=== PATIENT | female | born 1940 | race Caucasian/White ===

== ENCOUNTER → 2017-09-19 | Day surgery (SDC) | payer OTHER | END | disposition home or self-care (01) | LOC: JRADUS-SUR 10:19 | PROVIDERS: ATTEND Family Medicine | PROC: 0HBT3ZX Excision of Right Breast, Percutaneous Approach, Diagnostic (ICD-10-PCS; principal; 2017-09-19) | DX: N63.0 Unspecified lump in unspecified breast (principal); Z53.8 Procedure and treatment not carried out for other reasons | CPT/HCPCS: 76641-TC-LT; 77066-TC ==

== ENCOUNTER 2022-08-25 09:15 | Inpatient (IN) | payer OTHER ==
[2022-08-25] MEDS ORDERED: MIDAZOLAM 100 MG in SODIUM CHLORIDE 100 ML IVPB SCH (09:30)
[2022-08-25] MEDS ORDERED: NOREPINEPHRINE BITARTRATE 16,000 MCG in SODIUM CHLORIDE 484 ML IV SCH (09:30)
[2022-08-25] MEDS ORDERED: LACTATED RINGERS SOLUTION 1000 ML INFUS.BAG IV ONE (09:30)
[2022-08-25] MEDS ORDERED: NOREPINEPHRINE BITARTRATE/D5W 8 MG/250 ML BAG IVPB ONE (09:35)
[2022-08-25] MEDS ORDERED: CEFEPIME 1 GM in DEXTROSE 5%-WATER - 50 ML IVPB ONE (09:46)
[2022-08-25] MEDS ORDERED: VANCOMYCIN 1,000 MG in DEXTROSE 5%-WATER - 250 ML IVPB ONE (09:47)
[2022-08-25] MEDS ORDERED: MIDAZOLAM IN 0.9 % SOD.CHLORID 1 MG/1 ML PLAST..BAG ONE (09:48)
[2022-08-25 09:54] LABS: BASO % 0.3 % (0-2.0); EOS % 0.7 % (0-4.5); HEMOGLOBIN 8.9 GM/dL (10.7-15.3); LYMPH % 29.2 % (8-40); MCHC 28.7 g/dl (32.0-36.0); MEAN CELL VOLUME 90.4 fl (80-96); MEAN PLT VOLUME 10.1 fl (7.5-11.1); NEUT % 63.8 % (42.8-82.8); PLATELET COUNT 409 10^3/uL (134-434); RBC 3.43 M/mm3 (3.60-5.2); RDW 23.5 % (11.6-15.6); WHITE BLOOD COUNT 12.1 K/mm3 (4.0-10.0)
[2022-08-25 10:02] LABS: INR 1.45 (0.83-1.09); PROTHROMBIN TIME (PATIENT) 16.7 SEC (9.7-13.0)
[2022-08-25 10:05] LABS: VENOUS BASE EXCESS -8.6 mmol/L (-2-2); VENOUS O2 SATURATION 83.5 % (70-80); VENOUS PCO2 42.4 mmHg (38-52); VENOUS PH 7.248 (7.310-7.410)
[2022-08-25 10:05] LABS: ACTIVATED PTT 24.9 SECONDS (25.2-36.5)
[2022-08-25 10:13] LABS: CHLORIDE 125 mmol/L (98-107); SODIUM 157 mmol/L (136-145)
[2022-08-25 10:14] LABS: CALCIUM 8.4 mg/dL (8.5-10.1)
[2022-08-25 10:15] LABS: ALBUMIN 1.8 g/dl (3.4-5.0); ANION GAP 14 MMOL/L (8-16); BLOOD UREA NITROGEN 33.3 mg/dL (7-18); CO2 19 mmol/L (21-32); GLUCOSE,RANDOM 127 mg/dL (74-106)
[2022-08-25 10:17] LABS: CREATININE 1.9 mg/dL (0.55-1.3); SGOT/AST 23 U/L (15-37); SGPT/ALT 6 U/L (13-61)
[2022-08-25 10:19] LABS: TOT PROT 7.7 g/dl (6.4-8.2)
[2022-08-25 10:21] LABS: ALK PHOS 89 U/L (45-117)
[2022-08-25 10:43] LABS: LACTIC ACID 8.8 mmol/L (0.4-2.0)
[2022-08-25 10:56] LABS: EPI CELLS 5 /uL (0-25.1); HYALINE CASTS 1 /uL (0-3.1); PH,URINE 6.5 (5.0-8.0); URINE APPEARANCE TURBID; URINE BACTERIA >9,000 /uL (0-1359); URINE BILIRUBIN NEGATIVE (NEGATIVE); URINE COLOR YELLOW; URINE GLUCOSE (UA) NEGATIVE (NEGATIVE); URINE KETONE NEGATIVE (NEGATIVE); URINE LEUK ESTERASE 3+ (NEGATIVE); URINE NITRITE POSITIVE (NEGATIVE); URINE PROTEIN 1+ (NEGATIVE); URINE UROBILINOGEN 0.2 mg/dL (0.2-1.0); URINE WBC 6015 /uL (0-25.8)
[2022-08-25 11:01] LABS: ANISOCYTOSIS 0; MACROCYTOSIS 0; TARGET CELLS 1+
[2022-08-25 11:07] LABS: URINE RBC 147.8 /uL (0-23.9); YEAST NEGATIVE (NEGATIVE)
[2022-08-25] MEDS ORDERED: VANCOMYCIN/WATER FOR INJ (PEG) 1,000 MG/200 ML BAG IVPB ONE ×2 (11:11→11:15)
[2022-08-25] MEDS ORDERED: CEFEPIME 1 GM/100 ML BAG IVPB ONE (11:11)
[2022-08-25 11:13] LABS: ARTERIAL BLD GAS O2 SATURATION 99.7 % (95-98); ARTERIAL BLOOD GAS BASE EXCESS -2.3 mmol/L (-2-2); ARTERIAL BLOOD GAS PO2 292.8 mmHg (80-100); ARTERIAL BLOOD GAS pH 7.428 (7.350-7.450)
[2022-08-25 11:15] LABS: ALLENS TEST POSITIVE; PT'S TEMP 100.2; VENT MODE A/C; VENT RATE 12
[2022-08-25 11:22] LABS: CHLORIDE 124 mmol/L (98-107); SODIUM 158 mmol/L (136-145)
[2022-08-25 11:24] LABS: CALCIUM 8.9 mg/dL (8.5-10.1)
[2022-08-25 11:26] LABS: ANION GAP 14 MMOL/L (8-16); BLOOD UREA NITROGEN 32.3 mg/dL (7-18); CO2 20 mmol/L (21-32); GLUCOSE,RANDOM 95 mg/dL (74-106)
[2022-08-25 11:28] LABS: CREATININE 1.6 mg/dL (0.55-1.3); SGOT/AST 17 U/L (15-37); SGPT/ALT < 6 U/L (13-61)
[2022-08-25 11:29] LABS: BILIRUBIN,TOTAL 0.5 mg/dL (0.2-1)
[2022-08-25 11:32] LABS: ALK PHOS 96 U/L (45-117)
[2022-08-25] MEDS ORDERED: SODIUM CHLORIDE 0.9% 500 ML INFUS.BAG IV ONE (12:25)
[2022-08-25 12:45] LABS: LACTIC ACID 2.4 mmol/L (0.4-2.0)
[2022-08-25] MEDS: NOREPINEPHRINE 0.9 % NACL 8 MG/250 ML BAG IVPB SCH (12:47)
[2022-08-25] MEDS: MIDAZOLAM IN 0.9 % SOD.CHLORID 100 MG/100 ML PLAST..BAG IVPB SCH (12:49)
[2022-08-25] MEDS: SODIUM CHLORIDE 1,000 ML IV SCH (14:00)
[2022-08-25] MEDS: HEPARIN NA (PORCINE) 5,000 UNITS/ML 1ML VIAL SQ SCH ×2 (14:24→21:41)
[2022-08-25] MEDS ORDERED: CEFEPIME 2 GM in DEXTROSE 5%-WATER 100 ML IVPB ONE (15:30)
[2022-08-25] MEDS ORDERED: ACETAMINOPHEN 325 MG TABLET (FP) PO PRN ×2 (21:27→21:29)
[2022-08-25] MEDS: MUPIROCIN 2% TOPICAL OINTMENT FOR DECOLONIZATION NS SCH (21:41)
[2022-08-25] MEDS: PANTOPRAZOLE SODIUM 40 MG VIAL IVPUSH SCH (21:41)
[2022-08-25] MEDS: CHLORHEXIDINE GLUCONATE 4% CLEANSER FOR DECOLONIZATION TP SCH (21:41)
[2022-08-25] MEDS ORDERED: CEFEPIME 1 GM in DEXTROSE 5%-WATER - 100 ML IVPB SCH (22:00)
[2022-08-25] MEDS ORDERED: ACETAMINOPHEN 1000 MG/100 ML BAG IVPB PRN (22:07)
[2022-08-25] MEDS: FENTANYL NS IVPB 500 MCG/100 ML BAG IVPB SCH (22:23)
[2022-08-25] MEDS: VASOPRESSIN 40 UNITS/100 ML BAG IV SCH (22:24)
[2022-08-26] MEDS ORDERED: LACTATED RINGERS SOLUTION 1,000 ML/1,000 ML INFUS.BAG IV STA (00:26)
[2022-08-26] MEDS: SODIUM CHLORIDE 1,000 ML IV SCH (01:00)
[2022-08-26] MEDS: MIDAZOLAM IN 0.9 % SOD.CHLORID 100 MG/100 ML PLAST..BAG IVPB SCH ×3 (04:16→20:37)
[2022-08-26] MEDS: NOREPINEPHRINE 0.9 % NACL 8 MG/250 ML BAG IVPB SCH ×3 (04:16→22:54)
[2022-08-26] MEDS: CEFEPIME 1 GM in DEXTROSE 5%-WATER 100 ML IVPB SCH ×2 (04:41→16:00)
[2022-08-26] MEDS: HEPARIN NA (PORCINE) 5,000 UNITS/ML 1ML VIAL SQ SCH (06:46)
[2022-08-26] MEDS: HYDROCORTISONE SOD SUCCINATE 100 MG/2 ML VIAL IVPB SCH ×4 (06:46→20:37)
[2022-08-26 08:42] LABS: BASO % 0.2 % (0-2.0); EOS % 0.9 % (0-4.5); HEMATOCRIT 24.6 % (32.4-45.2); HEMOGLOBIN 7.2 GM/dL (10.7-15.3); LYMPH % 25.2 % (8-40); MCH 26.7 pg (25.7-33.7); MCHC 29.2 g/dl (32.0-36.0); MEAN CELL VOLUME 91.6 fl (80-96); MONO % 6.2 % (3.8-10.2); NEUT % 67.5 % (42.8-82.8); PLATELET COUNT 304 10^3/uL (134-434); RBC 2.68 M/mm3 (3.60-5.2); RDW 23.2 % (11.6-15.6); WHITE BLOOD COUNT 10.7 K/mm3 (4.0-10.0)
[2022-08-26 08:59] LABS: CHLORIDE 124 mmol/L (98-107); SODIUM 154 mmol/L (136-145)
[2022-08-26 09:04] LABS: ANION GAP 11 MMOL/L (8-16); BLOOD UREA NITROGEN 28.1 mg/dL (7-18); CALCIUM 7.6 mg/dL (8.5-10.1); CO2 19 mmol/L (21-32)
[2022-08-26 09:06] LABS: GLUCOSE,RANDOM 148 mg/dL (74-106); MAGNESIUM 1.7 mg/dL (1.8-2.4)
[2022-08-26 09:07] LABS: CREATININE 1.5 mg/dL (0.55-1.3); PHOSPHOROUS 3.1 mg/dL (2.5-4.9); SGPT/ALT < 6 U/L (13-61)
[2022-08-26 09:09] LABS: BILIRUBIN,TOTAL 0.5 mg/dL (0.2-1); SGOT/AST 19 U/L (15-37); TOT PROT 6.1 g/dl (6.4-8.2)
[2022-08-26 09:10] LABS: ALK PHOS 78 U/L (45-117)
[2022-08-26] MEDS ORDERED: HEPARIN NA (PORCINE) 5,000 UNITS/ML 1ML VIAL IVPUSH PRN ×2 (09:11)
[2022-08-26 09:12] LABS: ALBUMIN 1.5 g/dl (3.4-5.0)
[2022-08-26] MEDS ORDERED: HEPARIN INFUSION - 25,000 UNIT/500 ML INFUS.BAG IVPB SCH (09:30)
[2022-08-26] MEDS: VANCOMYCIN/WATER FOR INJ (PEG) 1,000 MG/200 ML BAG IVPB SCH (09:32)
[2022-08-26] MEDS: MUPIROCIN 2% TOPICAL OINTMENT FOR DECOLONIZATION NS SCH ×2 (09:32→21:44)
[2022-08-26] MEDS: PANTOPRAZOLE SODIUM 40 MG VIAL IVPUSH SCH ×2 (09:32→21:46)
[2022-08-26] MEDS: FENTANYL NS IVPB 500 MCG/100 ML BAG IVPB SCH (09:44)
[2022-08-26] MEDS: LACTATED RINGERS SOLUTION 1,000 ML/1,000 ML INFUS.BAG IV SCH (11:09)
[2022-08-26] MEDS ORDERED: MAGNESIUM SULF 50% (8.12 MEQ/2 ML-1 GM VIAL) IVPB ONE ×2 (13:32→20:04)
[2022-08-26] MEDS: KCL 10 MEQ IVPB 10 MEQ/100 ML INFUS.BAG IVPB SCH ×2 (14:20→16:00)
[2022-08-26 17:32] LABS: BASO % 0.2 % (0-2.0); EOS % 0.1 % (0-4.5); HEMATOCRIT 26.4 % (32.4-45.2); HEMOGLOBIN 7.6 GM/dL (10.7-15.3); LYMPH % 8.9 % (8-40); MCH 26.4 pg (25.7-33.7); MCHC 28.7 g/dl (32.0-36.0); MEAN CELL VOLUME 92.1 fl (80-96); MEAN PLT VOLUME 9.7 fl (7.5-11.1); NEUT % 89.8 % (42.8-82.8); PLATELET COUNT 319 10^3/uL (134-434); RBC 2.86 M/mm3 (3.60-5.2); RDW 23.5 % (11.6-15.6); WHITE BLOOD COUNT 10.5 K/mm3 (4.0-10.0)
[2022-08-26] MEDS: MELATONIN 5 MG TABLETS PO SCH (21:45)
[2022-08-26] MEDS: CHLORHEXIDINE GLUCONATE 4% CLEANSER FOR DECOLONIZATION TP SCH (21:45)
[2022-08-26] MEDS: VASOPRESSIN 40 UNITS/100 ML BAG IV SCH (21:46)
[2022-08-26] MEDS ORDERED: DIVALPROEX SODIUM 250 MG TABLET E.C. PO SCH (22:00)
[2022-08-27] MEDS ORDERED: FENTANYL CITRATE/PF 50 MCG/ML VIAL IVPUSH ONE (01:06)
[2022-08-27 01:14] LABS: BLOOD UREA NITROGEN 24.9 mg/dL (7-18); CALCIUM 7.9 mg/dL (8.5-10.1); CREATININE 1.4 mg/dL (0.55-1.3); MAGNESIUM 3.2 mg/dL (1.8-2.4); PHOSPHOROUS 3.2 mg/dL (2.5-4.9)
[2022-08-27] MEDS: FENTANYL NS IVPB 500 MCG/100 ML BAG IVPB SCH ×3 (01:15→22:14)
[2022-08-27] MEDS: LACTATED RINGERS SOLUTION 1,000 ML/1,000 ML INFUS.BAG IV SCH ×2 (03:00→11:50)
[2022-08-27] MEDS: HYDROCORTISONE SOD SUCCINATE 100 MG/2 ML VIAL IVPB SCH ×4 (04:15→21:40)
[2022-08-27] MEDS: CEFEPIME 1 GM in DEXTROSE 5%-WATER 100 ML IVPB SCH ×2 (04:15→17:09)
[2022-08-27 07:25] LABS: BASO % 0.1 % (0-2.0); HEMATOCRIT 24.2 % (32.4-45.2); HEMOGLOBIN 7.2 GM/dL (10.7-15.3); LYMPH % 8.5 % (8-40); MCH 26.8 pg (25.7-33.7); MEAN CELL VOLUME 89.5 fl (80-96); MEAN PLT VOLUME 9.5 fl (7.5-11.1); MONO % 1.8 % (3.8-10.2); NEUT % 89.6 % (42.8-82.8); PLATELET COUNT 328 10^3/uL (134-434); RDW 23.6 % (11.6-15.6); WHITE BLOOD COUNT 9.9 K/mm3 (4.0-10.0)
[2022-08-27 07:52] LABS: CHLORIDE 128 mmol/L (98-107); SODIUM 157 mmol/L (136-145)
[2022-08-27 08:03] LABS: ALBUMIN 1.4 g/dl (3.4-5.0); BLOOD UREA NITROGEN 23.2 mg/dL (7-18); CALCIUM 8.2 mg/dL (8.5-10.1); GLUCOSE,RANDOM 168 mg/dL (74-106)
[2022-08-27 08:05] LABS: ANION GAP 8 MMOL/L (8-16); CO2 20 mmol/L (21-32); MAGNESIUM 2.9 mg/dL (1.8-2.4)
[2022-08-27 08:07] LABS: PHOSPHOROUS 2.6 mg/dL (2.5-4.9); SGOT/AST 17 U/L (15-37); SGPT/ALT < 6 U/L (13-61)
[2022-08-27 08:09] LABS: ALK PHOS 89 U/L (45-117); BILIRUBIN,TOTAL 0.3 mg/dL (0.2-1); CREATININE 1.4 mg/dL (0.55-1.3); TOT PROT 6.1 g/dl (6.4-8.2)
[2022-08-27] MEDS: PANTOPRAZOLE SODIUM 40 MG VIAL IVPUSH SCH ×2 (09:35→21:43)
[2022-08-27] MEDS: MUPIROCIN 2% TOPICAL OINTMENT FOR DECOLONIZATION NS SCH ×2 (09:36→21:42)
[2022-08-27] MEDS: VANCOMYCIN/WATER FOR INJ (PEG) 1,000 MG/200 ML BAG IVPB SCH (09:37)
[2022-08-27] MEDS ORDERED: DIVALPROEX SODIUM 250 MG TABLET E.C. PO SCH (10:00)
[2022-08-27] MEDS ORDERED: MULTIVITAMINS (DAILY MVI) TABLET (FP) PO SCH (10:00)
[2022-08-27] MEDS ORDERED: KCL 10 MEQ IVPB 10 MEQ/100 ML INFUS.BAG IVPB SCH (10:45)
[2022-08-27] MEDS ORDERED: HEPARIN NA (PORCINE) 5,000 UNITS/ML 1ML VIAL IVPUSH PRN ×2 (11:46)
[2022-08-27] MEDS: MULTIVIT-MINERALS ORAL LIQUID PO SCH (11:49)
[2022-08-27] MEDS: ASPIRIN 81 MG CHEWABLE TABLETS NGT SCH (13:06)
[2022-08-27] MEDS: HEPARIN INFUSION - 25,000 UNITS/500 ML INFUS.BAG IVPB SCH ×2 (13:06→22:14)
[2022-08-27] MEDS: NOREPINEPHRINE 0.9 % NACL 8 MG/250 ML BAG IVPB SCH (13:08)
[2022-08-27] MEDS: MIDAZOLAM IN 0.9 % SOD.CHLORID 100 MG/100 ML PLAST..BAG IVPB SCH (13:09)
[2022-08-27] MEDS: POTASSIUM CHLORIDE 20 MEQ PREMIX IVPB 100 ML IVPB SCH ×3 (13:22→16:10)
[2022-08-27] MEDS ORDERED: VALPROATE SODIUM 250 MG/5 ML UNIT DOSE CUP PO SCH (14:00)
[2022-08-27] MEDS: VALPROATE SODIUM 250 MG/5 ML UNIT DOSE CUP GT SCH ×2 (14:35→21:42)
[2022-08-27] MEDS: POTASSIUM CHLORIDE 20 MEQ in DEXTROSE 5%-WATER - 1,000 ML IV SCH (17:09)
[2022-08-27] MEDS ORDERED: HEPARIN NA (PORCINE) 5,000 UNITS/ML 1ML VIAL SQ SCH (20:00)
[2022-08-27] MEDS: MELATONIN 5 MG TABLETS PO SCH (21:42)
[2022-08-27] MEDS: CHLORHEXIDINE GLUCONATE 4% CLEANSER FOR DECOLONIZATION TP SCH (21:42)
[2022-08-27] MEDS: VASOPRESSIN 40 UNITS/100 ML BAG IV SCH (21:43)
[2022-08-28] MEDS: NOREPINEPHRINE 0.9 % NACL 8 MG/250 ML BAG IVPB SCH ×2 (01:09→17:05)
[2022-08-28] MEDS: MIDAZOLAM IN 0.9 % SOD.CHLORID 100 MG/100 ML PLAST..BAG IVPB SCH ×2 (01:09→17:04)
[2022-08-28] MEDS: FENTANYL NS IVPB 500 MCG/100 ML BAG IVPB SCH ×2 (03:00→05:35)
[2022-08-28] MEDS: CEFEPIME 1 GM in DEXTROSE 5%-WATER 100 ML IVPB SCH ×2 (03:04→15:16)
[2022-08-28] MEDS: HYDROCORTISONE SOD SUCCINATE 100 MG/2 ML VIAL IVPB SCH ×4 (03:04→20:00)
[2022-08-28] MEDS: VALPROATE SODIUM 250 MG/5 ML UNIT DOSE CUP GT SCH ×3 (05:35→21:08)
[2022-08-28] MEDS: POTASSIUM CHLORIDE 20 MEQ in DEXTROSE 5%-WATER - 1,000 ML IV SCH (05:35)
[2022-08-28 06:21] LABS: ALLENS TEST POSITIVE; ARTERIAL BLD GAS O2 SATURATION 98.9 % (95-98); ARTERIAL BLOOD GAS BASE EXCESS -10.2 mmol/L (-2-2); ARTERIAL BLOOD GAS PO2 157.7 mmHg (80-100); ARTERIAL BLOOD GAS pH 7.297 (7.350-7.450)
[2022-08-28 06:22] LABS: VENT MODE A/C; VENT RATE 12
[2022-08-28 08:32] LABS: BASO % 0.1 % (0-2.0); HEMATOCRIT 24.3 % (32.4-45.2); LYMPH % 7.6 % (8-40); MCH 26.2 pg (25.7-33.7); MCHC 28.8 g/dl (32.0-36.0); MEAN PLT VOLUME 9.4 fl (7.5-11.1); MONO % 3.7 % (3.8-10.2); NEUT % 88.6 % (42.8-82.8); PLATELET COUNT 308 10^3/uL (134-434); RBC 2.67 M/mm3 (3.60-5.2); RDW 23.9 % (11.6-15.6); WHITE BLOOD COUNT 12.8 K/mm3 (4.0-10.0)
[2022-08-28 08:53] LABS: CHLORIDE 122 mmol/L (98-107); SODIUM 152 mmol/L (136-145)
[2022-08-28 09:06] LABS: ALBUMIN 1.4 g/dl (3.4-5.0); ANION GAP 12 MMOL/L (8-16); BLOOD UREA NITROGEN 24.9 mg/dL (7-18); CALCIUM 8.1 mg/dL (8.5-10.1); CO2 17 mmol/L (21-32); GLUCOSE,RANDOM 211 mg/dL (74-106); MAGNESIUM 2.5 mg/dL (1.8-2.4)
[2022-08-28 09:09] LABS: CREATININE 1.4 mg/dL (0.55-1.3); SGOT/AST 14 U/L (15-37)
[2022-08-28 09:10] LABS: PHOSPHOROUS 2.5 mg/dL (2.5-4.9)
[2022-08-28 09:11] LABS: BILIRUBIN,TOTAL 0.2 mg/dL (0.2-1)
[2022-08-28 09:12] LABS: ALK PHOS 81 U/L (45-117); SGPT/ALT < 6 U/L (13-61)
[2022-08-28] MEDS: MULTIVIT-MINERALS ORAL LIQUID PO SCH (09:36)
[2022-08-28] MEDS: PANTOPRAZOLE SODIUM 40 MG VIAL IVPUSH SCH ×2 (09:37→21:08)
[2022-08-28] MEDS: ASPIRIN 81 MG CHEWABLE TABLETS NGT SCH (09:37)
[2022-08-28] MEDS: MUPIROCIN 2% TOPICAL OINTMENT FOR DECOLONIZATION NS SCH ×2 (09:38→21:08)
[2022-08-28] MEDS: WATER IV SCH ×2 (13:51→23:59)
[2022-08-28] MEDS: DEXTROSE 5% IV SCH ×2 (13:51→23:59)
[2022-08-28] MEDS: POTASSIUM ACETATE IV SCH ×2 (13:51→23:59)
[2022-08-28] MEDS: HEPARIN INFUSION - 25,000 UNITS/500 ML INFUS.BAG IVPB SCH (17:02)
[2022-08-28] MEDS: CHLORHEXIDINE GLUCONATE 4% CLEANSER FOR DECOLONIZATION TP SCH (21:08)
[2022-08-29] MEDS: HYDROCORTISONE SOD SUCCINATE 100 MG/2 ML VIAL IVPB SCH ×3 (03:02→16:46)
[2022-08-29] MEDS: CEFEPIME 1 GM in DEXTROSE 5%-WATER 100 ML IVPB SCH ×2 (03:02→16:46)
[2022-08-29] MEDS: FENTANYL NS IVPB 500 MCG/100 ML BAG IVPB SCH ×3 (03:03→10:10)
[2022-08-29] MEDS: WATER IV SCH ×3 (04:08→21:13)
[2022-08-29] MEDS: POTASSIUM ACETATE IV SCH ×3 (04:08→21:13)
[2022-08-29] MEDS: DEXTROSE 5% IV SCH ×3 (04:08→21:13)
[2022-08-29] MEDS: VALPROATE SODIUM 250 MG/5 ML UNIT DOSE CUP GT SCH ×3 (05:25→21:10)
[2022-08-29 07:52] LABS: BASO % 0.2 % (0-2.0); HEMATOCRIT 24.2 % (32.4-45.2); LYMPH % 5.6 % (8-40); MCH 26.1 pg (25.7-33.7); MCHC 28.8 g/dl (32.0-36.0); MEAN CELL VOLUME 90.7 fl (80-96); MEAN PLT VOLUME 9.1 fl (7.5-11.1); MONO % 3.4 % (3.8-10.2); NEUT % 90.8 % (42.8-82.8); PLATELET COUNT 256 10^3/uL (134-434); RBC 2.66 M/mm3 (3.60-5.2); WHITE BLOOD COUNT 13.1 K/mm3 (4.0-10.0)
[2022-08-29 07:53] LABS: CHLORIDE 120 mmol/L (98-107); SODIUM 148 mmol/L (136-145)
[2022-08-29 08:05] LABS: ALBUMIN 1.3 g/dl (3.4-5.0); ANION GAP 10 MMOL/L (8-16); BLOOD UREA NITROGEN 23.4 mg/dL (7-18); CO2 18 mmol/L (21-32); GLUCOSE,RANDOM 158 mg/dL (74-106)
[2022-08-29 08:08] LABS: CREATININE 1.3 mg/dL (0.55-1.3); SGOT/AST 13 U/L (15-37)
[2022-08-29 08:10] LABS: BILIRUBIN,TOTAL 0.3 mg/dL (0.2-1); TOT PROT 5.7 g/dl (6.4-8.2)
[2022-08-29 08:11] LABS: ALK PHOS 83 U/L (45-117)
[2022-08-29 08:21] LABS: SGPT/ALT < 6 U/L (13-61)
[2022-08-29] MEDS: PANTOPRAZOLE SODIUM 40 MG VIAL IVPUSH SCH ×2 (10:09→21:10)
[2022-08-29] MEDS: MULTIVIT-MINERALS ORAL LIQUID PO SCH (10:09)
[2022-08-29] MEDS: ASPIRIN 81 MG CHEWABLE TABLETS NGT SCH (10:09)
[2022-08-29] MEDS: NOREPINEPHRINE 0.9 % NACL 8 MG/250 ML BAG IVPB SCH ×3 (10:10→20:00)
[2022-08-29] MEDS: MIDAZOLAM IN 0.9 % SOD.CHLORID 100 MG/100 ML PLAST..BAG IVPB SCH ×2 (10:10→13:05)
[2022-08-29] MEDS: MUPIROCIN 2% TOPICAL OINTMENT FOR DECOLONIZATION NS SCH ×2 (10:10→21:10)
[2022-08-29 10:12] LABS: ANISOCYTOSIS 1+; MACROCYTOSIS 0; TARGET CELLS 1+
[2022-08-29] MEDS: CHLORHEXIDINE GLUCONATE 4% CLEANSER FOR DECOLONIZATION TP SCH (21:10)
[2022-08-30] MEDS: POTASSIUM ACETATE IV SCH ×3 (00:52→23:50)
[2022-08-30] MEDS: WATER IV SCH ×3 (00:52→23:50)
[2022-08-30] MEDS: DEXTROSE 5% IV SCH ×3 (00:52→23:50)
[2022-08-30] MEDS: FENTANYL NS IVPB 500 MCG/100 ML BAG IVPB SCH ×2 (02:12→15:56)
[2022-08-30] MEDS: VALPROATE SODIUM 250 MG/5 ML UNIT DOSE CUP GT SCH ×3 (05:10→21:55)
[2022-08-30] MEDS: HYDROCORTISONE SOD SUCCINATE 100 MG/2 ML VIAL IVPB SCH ×2 (05:10→17:20)
[2022-08-30] MEDS: MIDAZOLAM IN 0.9 % SOD.CHLORID 100 MG/100 ML PLAST..BAG IVPB SCH ×2 (05:11→14:58)
[2022-08-30 08:03] LABS: HEMOGLOBIN 7.4 GM/dL (10.7-15.3); MCH 26.6 pg (25.7-33.7); MCHC 29.8 g/dl (32.0-36.0); MEAN CELL VOLUME 89.5 fl (80-96); MEAN PLT VOLUME 9.4 fl (7.5-11.1); PLATELET COUNT 243 10^3/uL (134-434); RBC 2.79 M/mm3 (3.60-5.2); RDW 24.1 % (11.6-15.6); WHITE BLOOD COUNT 15.4 K/mm3 (4.0-10.0)
[2022-08-30 08:20] LABS: CHLORIDE 119 mmol/L (98-107); SODIUM 149 mmol/L (136-145)
[2022-08-30 08:25] LABS: BLOOD UREA NITROGEN 21.6 mg/dL (7-18)
[2022-08-30 08:26] LABS: CALCIUM 8.1 mg/dL (8.5-10.1); GLUCOSE,RANDOM 175 mg/dL (74-106)
[2022-08-30 08:27] LABS: ALBUMIN 1.3 g/dl (3.4-5.0); ANION GAP 9 MMOL/L (8-16); CO2 21 mmol/L (21-32)
[2022-08-30 08:30] LABS: CREATININE 1.2 mg/dL (0.55-1.3); SGOT/AST 13 U/L (15-37)
[2022-08-30 08:31] LABS: BILIRUBIN,TOTAL 0.3 mg/dL (0.2-1)
[2022-08-30 08:32] LABS: ALK PHOS 87 U/L (45-117); TOT PROT 5.6 g/dl (6.4-8.2)
[2022-08-30 08:37] LABS: SGPT/ALT < 6 U/L (13-61)
[2022-08-30 09:53] LABS: ANISOCYTOSIS 2+; MACROCYTOSIS 1+
[2022-08-30] MEDS: PANTOPRAZOLE SODIUM 40 MG VIAL IVPUSH SCH ×2 (09:54→21:55)
[2022-08-30] MEDS: MULTIVIT-MINERALS ORAL LIQUID PO SCH (09:54)
[2022-08-30] MEDS: CEFTRIAXONE 2 GM in DEXTROSE 5%-WATER 100 ML IVPB SCH (09:54)
[2022-08-30] MEDS: AMINO ACIDS/PROTEIN HYDROLYS 30 ML LIQUID.PKT GT SCH (09:55)
[2022-08-30] MEDS: MUPIROCIN 2% TOPICAL OINTMENT FOR DECOLONIZATION NS SCH (09:55)
[2022-08-30] MEDS: ASPIRIN 81 MG CHEWABLE TABLETS NGT SCH (09:55)
[2022-08-30] MEDS: NOREPINEPHRINE 0.9 % NACL 8 MG/250 ML BAG IVPB SCH (17:25)
[2022-08-30] MEDS: CHLORHEXIDINE GLUCONATE 4% CLEANSER FOR DECOLONIZATION TP SCH (21:55)
[2022-08-31] MEDS: FENTANYL NS IVPB 500 MCG/100 ML BAG IVPB SCH (05:24)
[2022-08-31] MEDS: HYDROCORTISONE SOD SUCCINATE 100 MG/2 ML VIAL IVPB SCH ×3 (05:24→21:10)
[2022-08-31] MEDS: VALPROATE SODIUM 250 MG/5 ML UNIT DOSE CUP GT SCH ×3 (05:25→21:11)
[2022-08-31 07:43] LABS: HEMATOCRIT 25.4 % (32.4-45.2); HEMOGLOBIN 7.7 GM/dL (10.7-15.3); MCH 27.1 pg (25.7-33.7); MCHC 30.2 g/dl (32.0-36.0); MEAN CELL VOLUME 89.5 fl (80-96); MEAN PLT VOLUME 9.4 fl (7.5-11.1); PLATELET COUNT 210 10^3/uL (134-434); RBC 2.84 M/mm3 (3.60-5.2); RDW 23.5 % (11.6-15.6); WHITE BLOOD COUNT 23.2 K/mm3 (4.0-10.0)
[2022-08-31] MEDS: ASPIRIN 81 MG CHEWABLE TABLETS NGT SCH (10:37)
[2022-08-31] MEDS: CEFTRIAXONE 2 GM in DEXTROSE 5%-WATER 100 ML IVPB SCH (10:37)
[2022-08-31] MEDS: PANTOPRAZOLE SODIUM 40 MG VIAL IVPUSH SCH ×2 (10:37→21:11)
[2022-08-31] MEDS: AMINO ACIDS/PROTEIN HYDROLYS 30 ML LIQUID.PKT GT SCH (10:37)
[2022-08-31] MEDS: MULTIVIT-MINERALS ORAL LIQUID PO SCH (10:39)
[2022-08-31 10:52] LABS: CHLORIDE 118 mmol/L (98-107); SODIUM 149 mmol/L (136-145)
[2022-08-31 10:54] LABS: ALBUMIN 1.1 g/dl (3.4-5.0); ANION GAP 7 MMOL/L (8-16); BLOOD UREA NITROGEN 19.6 mg/dL (7-18); CO2 24 mmol/L (21-32); GLUCOSE,RANDOM 188 mg/dL (74-106); MAGNESIUM 2.2 mg/dL (1.8-2.4)
[2022-08-31 10:57] LABS: PHOSPHOROUS 2.1 mg/dL (2.5-4.9); SGOT/AST 10 U/L (15-37); SGPT/ALT < 6 U/L (13-61)
[2022-08-31 10:59] LABS: BILIRUBIN,TOTAL 0.1 mg/dL (0.2-1); TOT PROT 5.2 g/dl (6.4-8.2)
[2022-08-31 11:02] LABS: ALK PHOS 84 U/L (45-117)
[2022-08-31] MEDS: POTASSIUM ACETATE IV SCH ×2 (11:12→23:39)
[2022-08-31] MEDS: DEXTROSE 5% IV SCH ×2 (11:12→23:39)
[2022-08-31] MEDS: WATER IV SCH ×2 (11:12→23:39)
[2022-08-31 11:15] LABS: ARTERIAL BLD GAS O2 SATURATION 99.1 % (95-98); ARTERIAL BLOOD GAS BASE EXCESS -2.4 mmol/L (-2-2); ARTERIAL BLOOD GAS PO2 165.2 mmHg (80-100); ARTERIAL BLOOD GAS pH 7.381 (7.350-7.450)
[2022-08-31 11:17] LABS: ALLENS TEST POSITIVE
[2022-08-31 11:18] LABS: VENT MODE AC; VENT RATE 12
[2022-08-31] MEDS ORDERED: HYDROCORTISONE SOD SUCCINATE 100 MG/2 ML VIAL IVPB SCH (11:30)
[2022-08-31] MEDS ORDERED: NAPH,MB-DB/K PH,MBDB POWDER PACKET GT ONE (13:17)
[2022-08-31] MEDS: MIDAZOLAM IN 0.9 % SOD.CHLORID 100 MG/100 ML PLAST..BAG IVPB SCH (15:37)
[2022-08-31] MEDS: CHLORHEXIDINE GLUCONATE 4% CLEANSER FOR DECOLONIZATION TP SCH (21:11)
[2022-08-31] MEDS: COLLAGENASE CLOSTRIDIUM HIST. 30 GRAMS TUBE TP SCH (21:11)
[2022-08-31] MEDS: ATORVASTATIN CA 20 MG TABLET (FP) PO SCH (21:11)
[2022-09-01] MEDS: FENTANYL NS IVPB 500 MCG/100 ML BAG IVPB SCH (05:11)
[2022-09-01] MEDS: VALPROATE SODIUM 250 MG/5 ML UNIT DOSE CUP GT SCH ×3 (05:12→22:38)
[2022-09-01 08:26] LABS: CHLORIDE 112 mmol/L (98-107); HEMATOCRIT 23.2 % (32.4-45.2); HEMOGLOBIN 6.9 GM/dL (10.7-15.3); MCH 26.5 pg (25.7-33.7); MCHC 29.8 g/dl (32.0-36.0); MEAN PLT VOLUME 9.3 fl (7.5-11.1); PLATELET COUNT 172 10^3/uL (134-434); RBC 2.61 M/mm3 (3.60-5.2); RDW 23.9 % (11.6-15.6); SODIUM 145 mmol/L (136-145); WHITE BLOOD COUNT 21.1 K/mm3 (4.0-10.0)
[2022-09-01 08:40] LABS: ALBUMIN 1.1 g/dl (3.4-5.0); ANION GAP 8 MMOL/L (8-16); BLOOD UREA NITROGEN 21.6 mg/dL (7-18); CO2 24 mmol/L (21-32)
[2022-09-01 08:41] LABS: GLUCOSE,RANDOM 158 mg/dL (74-106); MAGNESIUM 2.1 mg/dL (1.8-2.4)
[2022-09-01 08:43] LABS: PHOSPHOROUS 1.9 mg/dL (2.5-4.9); SGPT/ALT < 6 U/L (13-61)
[2022-09-01 08:44] LABS: CREATININE 0.8 mg/dL (0.55-1.3); SGOT/AST 9 U/L (15-37)
[2022-09-01 08:45] LABS: BILIRUBIN,TOTAL 0.2 mg/dL (0.2-1); TOT PROT 4.9 g/dl (6.4-8.2)
[2022-09-01 08:46] LABS: ALK PHOS 89 U/L (45-117)
[2022-09-01] MEDS ORDERED: NAPH,MB-DB/K PH,MBDB POWDER PACKET NGT ONE (09:15)
[2022-09-01 09:45] LABS: ANISOCYTOSIS 1+; MACROCYTOSIS 1+
[2022-09-01] MEDS: AMINO ACIDS/PROTEIN HYDROLYS 30 ML LIQUID.PKT GT SCH (10:33)
[2022-09-01] MEDS: MULTIVIT-MINERALS ORAL LIQUID PO SCH (10:34)
[2022-09-01] MEDS: CEFTRIAXONE 2 GM in DEXTROSE 5%-WATER 100 ML IVPB SCH (10:34)
[2022-09-01] MEDS: ASCORBIC ACID 250 MG TABLET (FP) PO SCH (10:34)
[2022-09-01] MEDS: PANTOPRAZOLE SODIUM 40 MG VIAL IVPUSH SCH ×2 (10:34→22:39)
[2022-09-01] MEDS: HYDROCORTISONE SOD SUCCINATE 100 MG/2 ML VIAL IVPB SCH ×2 (10:34→22:39)
[2022-09-01] MEDS: CHOLECALCIFEROL (VIT D3) 1,000 UNIT (25 MCG) TABLET PO SCH (10:35)
[2022-09-01] MEDS: SERTRALINE HCL 50 MG TABLET (FP) PO SCH (10:35)
[2022-09-01] MEDS: COLLAGENASE CLOSTRIDIUM HIST. 30 GRAMS TUBE TP SCH ×2 (13:27→22:39)
[2022-09-01] MEDS: WATER IV SCH ×2 (15:03→23:21)
[2022-09-01] MEDS: DEXTROSE 5% IV SCH ×2 (15:03→23:21)
[2022-09-01] MEDS: POTASSIUM ACETATE IV SCH ×2 (15:03→23:21)
[2022-09-01] MEDS: NOREPINEPHRINE 0.9 % NACL 8 MG/250 ML BAG IVPB SCH ×2 (15:04→15:11)
[2022-09-01] MEDS: CHLORHEXIDINE GLUCONATE 4% CLEANSER FOR DECOLONIZATION TP SCH (22:38)
[2022-09-01] MEDS: ATORVASTATIN CA 20 MG TABLET (FP) PO SCH (22:39)
[2022-09-01 23:44] LABS: HEMATOCRIT 26.7 % (32.4-45.2); HEMOGLOBIN 8.5 GM/dL (10.7-15.3); LYMPH % 5.6 % (8-40); MCH 27.8 pg (25.7-33.7); MCHC 31.9 g/dl (32.0-36.0); MEAN CELL VOLUME 87.2 fl (80-96); MEAN PLT VOLUME 8.2 fl (7.5-11.1); MONO % 2.7 % (3.8-10.2); NEUT % 91.7 % (42.8-82.8); PLATELET COUNT 141 10^3/uL (134-434); RBC 3.07 M/mm3 (3.60-5.2); RDW 19.9 % (11.6-15.6); WHITE BLOOD COUNT 17.9 K/mm3 (4.0-10.0)
[2022-09-02] MEDS: POTASSIUM ACETATE IV SCH ×2 (02:12→14:57)
[2022-09-02] MEDS: DEXTROSE 5% IV SCH ×2 (02:12→14:57)
[2022-09-02] MEDS: WATER IV SCH ×2 (02:12→14:57)
[2022-09-02 03:06] LABS: ANISOCYTOSIS 2+; MACROCYTOSIS 0
[2022-09-02] MEDS: VALPROATE SODIUM 250 MG/5 ML UNIT DOSE CUP GT SCH ×3 (06:17→21:18)
[2022-09-02 08:20] LABS: HEMATOCRIT 29.1 % (32.4-45.2); HEMOGLOBIN 9.3 GM/dL (10.7-15.3); MCH 27.8 pg (25.7-33.7); MCHC 32.1 g/dl (32.0-36.0); MEAN CELL VOLUME 86.7 fl (80-96); MEAN PLT VOLUME 9.3 fl (7.5-11.1); PLATELET COUNT 182 10^3/uL (134-434); RBC 3.36 M/mm3 (3.60-5.2); RDW 20.4 % (11.6-15.6); WHITE BLOOD COUNT 19.7 K/mm3 (4.0-10.0)
[2022-09-02 09:07] LABS: ANISOCYTOSIS 1+; MACROCYTOSIS 1+
[2022-09-02 09:23] LABS: ALBUMIN 1.2 g/dl (3.4-5.0); BILIRUBIN,TOTAL 0.4 mg/dL (0.2-1); BLOOD UREA NITROGEN 20.6 mg/dL (7-18); CALCIUM 7.8 mg/dL (8.5-10.1); CREATININE 0.8 mg/dL (0.55-1.3); MAGNESIUM 2.2 mg/dL (1.8-2.4); PHOSPHOROUS 2.5 mg/dL (2.5-4.9); TOT PROT 5.1 g/dl (6.4-8.2)
[2022-09-02] MEDS: HYDROCORTISONE SOD SUCCINATE 100 MG/2 ML VIAL IVPB SCH (11:02)
[2022-09-02] MEDS: CEFTRIAXONE 2 GM in DEXTROSE 5%-WATER 100 ML IVPB SCH (11:03)
[2022-09-02] MEDS: PANTOPRAZOLE SODIUM 40 MG VIAL IVPUSH SCH ×2 (11:03→21:18)
[2022-09-02] MEDS: CHOLECALCIFEROL (VIT D3) 1,000 UNIT (25 MCG) TABLET PO SCH (11:08)
[2022-09-02] MEDS: SERTRALINE HCL 50 MG TABLET (FP) PO SCH (11:08)
[2022-09-02] MEDS: MULTIVIT-MINERALS ORAL LIQUID PO SCH (11:08)
[2022-09-02] MEDS: ASCORBIC ACID 250 MG TABLET (FP) PO SCH (11:08)
[2022-09-02] MEDS: AMINO ACIDS/PROTEIN HYDROLYS 30 ML LIQUID.PKT GT SCH (11:08)
[2022-09-02] MEDS: COLLAGENASE CLOSTRIDIUM HIST. 30 GRAMS TUBE TP SCH ×2 (14:08→21:18)
[2022-09-02] MEDS: ENOXAPARIN NA (PORCINE) 40 MG/0.4 ML DISP.SYRIN SQ SCH (14:57)
[2022-09-02] MEDS: SCOPOLAMINE HYDROBROMIDE 1 PATCH PATCH.TD72 TD SCH (14:57)
[2022-09-02] MEDS: ATORVASTATIN CA 20 MG TABLET (FP) PO SCH (21:18)
[2022-09-02] MEDS: CHLORHEXIDINE GLUCONATE 4% CLEANSER FOR DECOLONIZATION TP SCH (21:18)
[2022-09-03] MEDS: VALPROATE SODIUM 250 MG/5 ML UNIT DOSE CUP GT SCH ×3 (05:41→23:18)
[2022-09-03 07:36] LABS: HEMOGLOBIN 8.2 GM/dL (10.7-15.3); MCH 28.6 pg (25.7-33.7); MCHC 32.8 g/dl (32.0-36.0); MEAN CELL VOLUME 87.3 fl (80-96); MEAN PLT VOLUME 8.7 fl (7.5-11.1); PLATELET COUNT 129 10^3/uL (134-434); RBC 2.86 M/mm3 (3.60-5.2); RDW 20.2 % (11.6-15.6); WHITE BLOOD COUNT 10.9 K/mm3 (4.0-10.0)
[2022-09-03 07:45] LABS: CHLORIDE 109 mmol/L (98-107); SODIUM 142 mmol/L (136-145)
[2022-09-03 08:34] LABS: ALBUMIN 1.1 g/dl (3.4-5.0); ANION GAP 7 MMOL/L (8-16); BLOOD UREA NITROGEN 22.4 mg/dL (7-18); CALCIUM 7.7 mg/dL (8.5-10.1); CO2 27 mmol/L (21-32); GLUCOSE,RANDOM 73 mg/dL (74-106); MAGNESIUM 1.9 mg/dL (1.8-2.4); PHOSPHOROUS 2.3 mg/dL (2.5-4.9)
[2022-09-03 08:36] LABS: TOT PROT 4.6 g/dl (6.4-8.2)
[2022-09-03 08:37] LABS: ALK PHOS 85 U/L (45-117); CREATININE 0.7 mg/dL (0.55-1.3)
[2022-09-03 08:38] LABS: SGOT/AST 16 U/L (15-37)
[2022-09-03 08:39] LABS: BILIRUBIN,TOTAL 0.2 mg/dL (0.2-1); SGPT/ALT < 6 U/L (13-61)
[2022-09-03 08:51] LABS: ANISOCYTOSIS 1+; MACROCYTOSIS 1+
[2022-09-03] MEDS: PANTOPRAZOLE SODIUM 40 MG VIAL IVPUSH SCH ×2 (09:29→23:18)
[2022-09-03] MEDS: CHOLECALCIFEROL (VIT D3) 1,000 UNIT (25 MCG) TABLET PO SCH (09:30)
[2022-09-03] MEDS: MULTIVIT-MINERALS ORAL LIQUID PO SCH (09:30)
[2022-09-03] MEDS: SERTRALINE HCL 50 MG TABLET (FP) PO SCH (09:30)
[2022-09-03] MEDS: AMINO ACIDS/PROTEIN HYDROLYS 30 ML LIQUID.PKT GT SCH (09:30)
[2022-09-03] MEDS: ASCORBIC ACID 250 MG TABLET (FP) PO SCH (09:30)
[2022-09-03] MEDS ORDERED: NAPH,MB-DB/K PH,MBDB POWDER PACKET PO ONE (09:30)
[2022-09-03] MEDS: COLLAGENASE CLOSTRIDIUM HIST. 30 GRAMS TUBE TP SCH ×2 (09:30→23:18)
[2022-09-03] MEDS: CEFTRIAXONE 2 GM in DEXTROSE 5%-WATER 100 ML IVPB SCH (09:30)
[2022-09-03] MEDS: ASPIRIN 81 MG CHEWABLE TABLETS NGT SCH (09:32)
[2022-09-03] MEDS: ATORVASTATIN CA 20 MG TABLET (FP) PO SCH (23:18)
[2022-09-03] MEDS: CHLORHEXIDINE GLUCONATE 4% CLEANSER FOR DECOLONIZATION TP SCH (23:18)
[2022-09-04] MEDS: VALPROATE SODIUM 250 MG/5 ML UNIT DOSE CUP GT SCH ×3 (07:09→21:57)
[2022-09-04] MEDS: ENOXAPARIN NA (PORCINE) 40 MG/0.4 ML DISP.SYRIN SQ SCH (09:31)
[2022-09-04] MEDS: CEFTRIAXONE 2 GM in DEXTROSE 5%-WATER 100 ML IVPB SCH (09:31)
[2022-09-04] MEDS: ASCORBIC ACID 250 MG TABLET (FP) PO SCH (09:32)
[2022-09-04] MEDS: CHOLECALCIFEROL (VIT D3) 1,000 UNIT (25 MCG) TABLET PO SCH (09:32)
[2022-09-04] MEDS: PANTOPRAZOLE SODIUM 40 MG VIAL IVPUSH SCH ×2 (09:32→21:58)
[2022-09-04] MEDS: MULTIVIT-MINERALS ORAL LIQUID PO SCH (09:32)
[2022-09-04] MEDS: SERTRALINE HCL 50 MG TABLET (FP) PO SCH (09:32)
[2022-09-04] MEDS: AMINO ACIDS/PROTEIN HYDROLYS 30 ML LIQUID.PKT GT SCH (09:32)
[2022-09-04] MEDS: ASPIRIN 81 MG CHEWABLE TABLETS NGT SCH (09:32)
[2022-09-04] MEDS: MIDODRINE HCL 5 MG TABLET PO SCH ×3 (09:50→18:15)
[2022-09-04 10:04] LABS: HEMATOCRIT 25.1 % (32.4-45.2); MCH 28.2 pg (25.7-33.7); MCHC 31.9 g/dl (32.0-36.0); MEAN CELL VOLUME 88.3 fl (80-96); MEAN PLT VOLUME 8.7 fl (7.5-11.1); PLATELET COUNT 154 10^3/uL (134-434); RBC 2.85 M/mm3 (3.60-5.2); RDW 20.1 % (11.6-15.6); WHITE BLOOD COUNT 16.7 K/mm3 (4.0-10.0)
[2022-09-04 10:29] LABS: BLOOD UREA NITROGEN 22.1 mg/dL (7-18); CALCIUM 7.4 mg/dL (8.5-10.1); MAGNESIUM 2.1 mg/dL (1.8-2.4)
[2022-09-04 10:32] LABS: CREATININE 0.8 mg/dL (0.55-1.3); PHOSPHOROUS 2.7 mg/dL (2.5-4.9)
[2022-09-04] MEDS ORDERED: POTASSIUM CHLORIDE ORAL LIQUID 20 MEQ/15 ML PO ONE (10:57)
[2022-09-04] MEDS: COLLAGENASE CLOSTRIDIUM HIST. 30 GRAMS TUBE TP SCH ×2 (11:34→21:59)
[2022-09-04] MEDS: CHLORHEXIDINE GLUCONATE 4% CLEANSER FOR DECOLONIZATION TP SCH (21:54)
[2022-09-04] MEDS: ATORVASTATIN CA 20 MG TABLET (FP) PO SCH (21:57)
[2022-09-05] MEDS: VALPROATE SODIUM 250 MG/5 ML UNIT DOSE CUP GT SCH ×3 (07:01→21:19)
[2022-09-05] MEDS: CHOLECALCIFEROL (VIT D3) 1,000 UNIT (25 MCG) TABLET PO SCH (09:36)
[2022-09-05] MEDS: MULTIVIT-MINERALS ORAL LIQUID PO SCH (09:36)
[2022-09-05] MEDS: ENOXAPARIN NA (PORCINE) 40 MG/0.4 ML DISP.SYRIN SQ SCH (09:36)
[2022-09-05] MEDS: PANTOPRAZOLE SODIUM 40 MG VIAL IVPUSH SCH ×2 (09:36→21:19)
[2022-09-05] MEDS: CEFTRIAXONE 2 GM in DEXTROSE 5%-WATER 100 ML IVPB SCH (09:36)
[2022-09-05] MEDS: ASPIRIN 81 MG CHEWABLE TABLETS NGT SCH (09:37)
[2022-09-05] MEDS: ASCORBIC ACID 250 MG TABLET (FP) PO SCH (09:37)
[2022-09-05] MEDS: MIDODRINE HCL 5 MG TABLET PO SCH ×3 (09:37→17:20)
[2022-09-05] MEDS: AMINO ACIDS/PROTEIN HYDROLYS 30 ML LIQUID.PKT GT SCH (09:37)
[2022-09-05] MEDS: SERTRALINE HCL 50 MG TABLET (FP) PO SCH (09:37)
[2022-09-05] MEDS: COLLAGENASE CLOSTRIDIUM HIST. 30 GRAMS TUBE TP SCH ×2 (09:37→21:19)
[2022-09-05 11:28] LABS: HEMATOCRIT 24.2 % (32.4-45.2); HEMOGLOBIN 7.6 GM/dL (10.7-15.3); MCH 28.1 pg (25.7-33.7); MCHC 31.6 g/dl (32.0-36.0); MEAN PLT VOLUME 8.1 fl (7.5-11.1); PLATELET COUNT 159 10^3/uL (134-434); RBC 2.72 M/mm3 (3.60-5.2); RDW 19.7 % (11.6-15.6); WHITE BLOOD COUNT 12.5 K/mm3 (4.0-10.0)
[2022-09-05] MEDS: SCOPOLAMINE HYDROBROMIDE 1 PATCH PATCH.TD72 TD SCH (11:45)
[2022-09-05 11:52] LABS: CALCIUM 7.9 mg/dL (8.5-10.1)
[2022-09-05 11:55] LABS: BLOOD UREA NITROGEN 20.6 mg/dL (7-18); MAGNESIUM 1.9 mg/dL (1.8-2.4)
[2022-09-05 11:58] LABS: CREATININE 0.7 mg/dL (0.55-1.3); PHOSPHOROUS 2.6 mg/dL (2.5-4.9)
[2022-09-05] MEDS ORDERED: POTASSIUM CHLORIDE ORAL LIQUID 20 MEQ/15 ML PO ONE (14:15)
[2022-09-05] MEDS ORDERED: FUROSEMIDE 40 MG/4 ML INJECTABLE VIAL IVPUSH ONE (14:15)
[2022-09-05] MEDS: METOCLOPRAMIDE HCL INJECTION 10 MG/2 ML VIAL IVPUSH SCH (17:36)
[2022-09-05] MEDS: NOREPINEPHRINE 0.9 % NACL 8 MG/250 ML BAG IVPB SCH (21:18)
[2022-09-05] MEDS: ATORVASTATIN CA 20 MG TABLET (FP) PO SCH (21:19)
[2022-09-05] MEDS: CHLORHEXIDINE GLUCONATE 4% CLEANSER FOR DECOLONIZATION TP SCH (21:19)
[2022-09-06] MEDS: METOCLOPRAMIDE HCL INJECTION 10 MG/2 ML VIAL IVPUSH SCH ×2 (00:47→09:39)
[2022-09-06] MEDS: VALPROATE SODIUM 250 MG/5 ML UNIT DOSE CUP GT SCH ×3 (05:21→21:33)
[2022-09-06 07:23] LABS: HEMATOCRIT 24.4 % (32.4-45.2); HEMOGLOBIN 7.9 GM/dL (10.7-15.3); MCH 29.2 pg (25.7-33.7); MCHC 32.5 g/dl (32.0-36.0); MEAN CELL VOLUME 89.9 fl (80-96); MEAN PLT VOLUME 8.2 fl (7.5-11.1); PLATELET COUNT 148 10^3/uL (134-434); RBC 2.72 M/mm3 (3.60-5.2); RDW 19.4 % (11.6-15.6); WHITE BLOOD COUNT 10.8 K/mm3 (4.0-10.0)
[2022-09-06 07:49] LABS: CALCIUM 7.9 mg/dL (8.5-10.1)
[2022-09-06 07:50] LABS: BLOOD UREA NITROGEN 23.6 mg/dL (7-18); MAGNESIUM 1.8 mg/dL (1.8-2.4)
[2022-09-06 07:53] LABS: BILIRUBIN,DIRECT 0.1 mg/dL (0.0-0.2); CREATININE 0.8 mg/dL (0.55-1.3)
[2022-09-06 07:55] LABS: BILIRUBIN,TOTAL 0.2 mg/dL (0.2-1); TOT PROT 4.7 g/dl (6.4-8.2)
[2022-09-06] MEDS: PANTOPRAZOLE SODIUM 40 MG VIAL IVPUSH SCH ×2 (09:39→21:33)
[2022-09-06] MEDS: ENOXAPARIN NA (PORCINE) 40 MG/0.4 ML DISP.SYRIN SQ SCH (09:39)
[2022-09-06] MEDS: ASPIRIN 81 MG CHEWABLE TABLETS NGT SCH (09:40)
[2022-09-06] MEDS: MIDODRINE HCL 5 MG TABLET PO SCH ×4 (09:40→22:59)
[2022-09-06] MEDS: SERTRALINE HCL 50 MG TABLET (FP) PO SCH (09:40)
[2022-09-06] MEDS: CHOLECALCIFEROL (VIT D3) 1,000 UNIT (25 MCG) TABLET PO SCH (09:40)
[2022-09-06] MEDS: KCL 10 MEQ IVPB 10 MEQ/100 ML INFUS.BAG IVPB SCH ×3 (09:41→16:40)
[2022-09-06] MEDS: CEFTRIAXONE 2 GM in DEXTROSE 5%-WATER 100 ML IVPB SCH (09:41)
[2022-09-06] MEDS: AMINO ACIDS/PROTEIN HYDROLYS 30 ML LIQUID.PKT GT SCH (09:41)
[2022-09-06] MEDS: MULTIVIT-MINERALS ORAL LIQUID PO SCH (09:41)
[2022-09-06] MEDS: ASCORBIC ACID 250 MG TABLET (FP) PO SCH (09:42)
[2022-09-06] MEDS: COLLAGENASE CLOSTRIDIUM HIST. 30 GRAMS TUBE TP SCH ×2 (09:42→21:33)
[2022-09-06] MEDS: CHLORHEXIDINE GLUCONATE 4% CLEANSER FOR DECOLONIZATION TP SCH (21:33)
[2022-09-06] MEDS: ATORVASTATIN CA 20 MG TABLET (FP) PO SCH (21:33)
[2022-09-07] MEDS: MIDODRINE HCL 5 MG TABLET PO SCH ×3 (05:59→22:04)
[2022-09-07] MEDS: VALPROATE SODIUM 250 MG/5 ML UNIT DOSE CUP GT SCH ×3 (05:59→22:04)
[2022-09-07 07:40] LABS: BASO % 0.2 % (0-2.0); EOS % 1.2 % (0-4.5); HEMOGLOBIN 7.1 GM/dL (10.7-15.3); LYMPH % 7.9 % (8-40); MCHC 32.1 g/dl (32.0-36.0); MEAN CELL VOLUME 90.3 fl (80-96); MEAN PLT VOLUME 8.7 fl (7.5-11.1); MONO % 6.5 % (3.8-10.2); NEUT % 84.2 % (42.8-82.8); PLATELET COUNT 148 10^3/uL (134-434); RBC 2.44 M/mm3 (3.60-5.2); RDW 19.3 % (11.6-15.6); WHITE BLOOD COUNT 10.6 K/mm3 (4.0-10.0)
[2022-09-07 07:59] LABS: CALCIUM 7.7 mg/dL (8.5-10.1); MAGNESIUM 1.8 mg/dL (1.8-2.4)
[2022-09-07 08:00] LABS: ALBUMIN 0.9 g/dl (3.4-5.0); BLOOD UREA NITROGEN 20.2 mg/dL (7-18)
[2022-09-07 08:02] LABS: PHOSPHOROUS 2.7 mg/dL (2.5-4.9)
[2022-09-07 08:03] LABS: CREATININE 0.7 mg/dL (0.55-1.3)
[2022-09-07 08:04] LABS: TOT PROT 4.4 g/dl (6.4-8.2)
[2022-09-07 08:40] LABS: BILIRUBIN,TOTAL 0.2 mg/dL (0.2-1)
[2022-09-07] MEDS: AMINO ACIDS/PROTEIN HYDROLYS 30 ML LIQUID.PKT GT SCH (09:39)
[2022-09-07] MEDS: KCL 10 MEQ IVPB 10 MEQ/100 ML INFUS.BAG IVPB SCH ×3 (09:39→14:35)
[2022-09-07] MEDS: ASCORBIC ACID 250 MG TABLET (FP) PO SCH (09:40)
[2022-09-07] MEDS: CHOLECALCIFEROL (VIT D3) 1,000 UNIT (25 MCG) TABLET PO SCH (09:40)
[2022-09-07] MEDS: ASPIRIN 81 MG CHEWABLE TABLETS NGT SCH (09:40)
[2022-09-07] MEDS: SERTRALINE HCL 50 MG TABLET (FP) PO SCH (09:40)
[2022-09-07] MEDS: PANTOPRAZOLE SODIUM 40 MG VIAL IVPUSH SCH ×2 (09:41→22:04)
[2022-09-07] MEDS: MULTIVIT-MINERALS ORAL LIQUID PO SCH (09:41)
[2022-09-07] MEDS: ENOXAPARIN NA (PORCINE) 40 MG/0.4 ML DISP.SYRIN SQ SCH (09:41)
[2022-09-07] MEDS: COLLAGENASE CLOSTRIDIUM HIST. 30 GRAMS TUBE TP SCH ×2 (09:42→22:04)
[2022-09-07] MEDS ORDERED: MIDODRINE HCL 5 MG TABLET PO SCH (10:00)
[2022-09-07] MEDS: NOREPINEPHRINE BITARTRATE 4,000 MCG in DEXTROSE 5%-WATER - 496 ML IV SCH (14:39)
[2022-09-07] MEDS: BANATROL PLUS POWDER PACKET PO SCH ×2 (14:39→22:04)
[2022-09-07] MEDS ORDERED: KCL 10 MEQ IVPB 10 MEQ/100 ML INFUS.BAG IVPB SCH (14:45)
[2022-09-07] MEDS: ATORVASTATIN CA 20 MG TABLET (FP) PO SCH (22:04)
[2022-09-07] MEDS: CHLORHEXIDINE GLUCONATE 4% CLEANSER FOR DECOLONIZATION TP SCH (22:04)
[2022-09-08] MEDS: VALPROATE SODIUM 250 MG/5 ML UNIT DOSE CUP GT SCH ×2 (06:12→14:12)
[2022-09-08] MEDS: MIDODRINE HCL 5 MG TABLET PO SCH ×3 (06:12→22:51)
[2022-09-08] MEDS: BANATROL PLUS POWDER PACKET PO SCH ×3 (06:12→22:00)
[2022-09-08 07:28] LABS: HEMATOCRIT 22.6 % (32.4-45.2); HEMOGLOBIN 7.2 GM/dL (10.7-15.3); MCH 29.1 pg (25.7-33.7); MEAN CELL VOLUME 90.9 fl (80-96); MEAN PLT VOLUME 8.4 fl (7.5-11.1); PLATELET COUNT 195 10^3/uL (134-434); RBC 2.48 M/mm3 (3.60-5.2); RDW 18.3 % (11.6-15.6); WHITE BLOOD COUNT 14.4 K/mm3 (4.0-10.0)
[2022-09-08 07:32] LABS: INR 1.7 (0.83-1.09); PROTHROMBIN TIME (PATIENT) 19.7 SEC (9.7-13.0)
[2022-09-08 07:34] LABS: ACTIVATED PTT 30.8 SECONDS (25.2-36.5)
[2022-09-08 07:53] LABS: CALCIUM 7.7 mg/dL (8.5-10.1)
[2022-09-08 07:54] LABS: ALBUMIN 0.9 g/dl (3.4-5.0); BLOOD UREA NITROGEN 19.1 mg/dL (7-18); MAGNESIUM 1.7 mg/dL (1.8-2.4)
[2022-09-08 07:57] LABS: CREATININE 0.8 mg/dL (0.55-1.3); PHOSPHOROUS 2.5 mg/dL (2.5-4.9)
[2022-09-08 07:58] LABS: TOT PROT 4.8 g/dl (6.4-8.2)
[2022-09-08 08:01] LABS: BILIRUBIN,TOTAL 0.2 mg/dL (0.2-1)
[2022-09-08 09:18] LABS: ANISOCYTOSIS 0; HELMET CELLS 0; HOWELL-JOLLY BODIES 0; MACROCYTOSIS 0; OVALOCYTE 0; ROULEAU 0; SICKELED CELLS 0; TARGET CELLS 0; TEAR DROP CELLS 0; TOXIC GRANULATION 0
[2022-09-08] MEDS ORDERED: MAGNESIUM 1GM/D5W 100ML - 100 ML IVPB IVPB ONE (09:30)
[2022-09-08] MEDS ORDERED: POTASSIUM PHOSPHATE 30 MM in SODIUM CHLORIDE 250 ML IVPB ONE (10:00)
[2022-09-08] MEDS: ENOXAPARIN NA (PORCINE) 40 MG/0.4 ML DISP.SYRIN SQ SCH (10:11)
[2022-09-08] MEDS: ASPIRIN 81 MG CHEWABLE TABLETS NGT SCH (10:11)
[2022-09-08] MEDS: AMINO ACIDS/PROTEIN HYDROLYS 30 ML LIQUID.PKT GT SCH (10:11)
[2022-09-08] MEDS: PANTOPRAZOLE SODIUM 40 MG VIAL IVPUSH SCH ×2 (10:12→22:00)
[2022-09-08] MEDS: ASCORBIC ACID 250 MG TABLET (FP) PO SCH (10:12)
[2022-09-08] MEDS: SERTRALINE HCL 50 MG TABLET (FP) PO SCH (10:12)
[2022-09-08] MEDS: CHOLECALCIFEROL (VIT D3) 1,000 UNIT (25 MCG) TABLET PO SCH (10:12)
[2022-09-08] MEDS: COLLAGENASE CLOSTRIDIUM HIST. 30 GRAMS TUBE TP SCH ×2 (12:32→22:00)
[2022-09-08] MEDS: SCOPOLAMINE HYDROBROMIDE 1 PATCH PATCH.TD72 TD SCH (14:13)
[2022-09-08] MEDS ORDERED: ALBUMIN HUMAN 25% 100 ML VIAL IV SCH ×2 (14:45→20:45)
[2022-09-08] MEDS ORDERED: FUROSEMIDE 40 MG/4 ML INJECTABLE VIAL IVPUSH ONE ×2 (15:30→21:30)
[2022-09-08] MEDS: MULTIVIT-MINERALS ORAL LIQUID PO SCH (17:29)
[2022-09-08] MEDS: ATORVASTATIN CA 20 MG TABLET (FP) PO SCH (22:00)
[2022-09-08] MEDS ORDERED: POTASSIUM CHLORIDE ORAL LIQUID 20 MEQ/15 ML PO ONE (22:00)
[2022-09-08] MEDS: CHLORHEXIDINE GLUCONATE 4% CLEANSER FOR DECOLONIZATION TP SCH (22:00)
[2022-09-09] MEDS: NOREPINEPHRINE BITARTRATE 4,000 MCG in DEXTROSE 5%-WATER - 496 ML IV SCH ×2 (01:44→18:25)
[2022-09-09] MEDS: VALPROATE SODIUM 250 MG/5 ML UNIT DOSE CUP GT SCH ×4 (01:45→21:35)
[2022-09-09] MEDS: BANATROL PLUS POWDER PACKET PO SCH ×3 (06:47→21:35)
[2022-09-09] MEDS: MIDODRINE HCL 5 MG TABLET PO SCH ×3 (06:47→23:41)
[2022-09-09] MEDS: VASOPRESSIN 40 UNITS/100 ML BAG IV SCH (08:00)
[2022-09-09] MEDS: ENOXAPARIN NA (PORCINE) 40 MG/0.4 ML DISP.SYRIN SQ SCH (10:14)
[2022-09-09] MEDS: PANTOPRAZOLE SODIUM 40 MG VIAL IVPUSH SCH (10:14)
[2022-09-09] MEDS: CHOLECALCIFEROL (VIT D3) 1,000 UNIT (25 MCG) TABLET PO SCH (10:14)
[2022-09-09] MEDS: LACTOBACILLUS ACIDOPHILUS 1 TABLET GT SCH (10:15)
[2022-09-09] MEDS: ASCORBIC ACID 250 MG TABLET (FP) PO SCH (10:15)
[2022-09-09] MEDS: AMINO ACIDS/PROTEIN HYDROLYS 30 ML LIQUID.PKT GT SCH (10:15)
[2022-09-09] MEDS: MULTIVIT-MINERALS ORAL LIQUID PO SCH (10:16)
[2022-09-09] MEDS: COLLAGENASE CLOSTRIDIUM HIST. 30 GRAMS TUBE TP SCH ×2 (10:16→21:35)
[2022-09-09] MEDS: ASPIRIN 81 MG CHEWABLE TABLETS NGT SCH (10:16)
[2022-09-09] MEDS: SERTRALINE HCL 50 MG TABLET (FP) PO SCH (10:17)
[2022-09-09] MEDS ORDERED: MIDAZOLAM HCL 2 MG/2 ML SINGLE DOSE VIAL IVPUSH ONE (16:31)
[2022-09-09] MEDS: ATORVASTATIN CA 20 MG TABLET (FP) PO SCH (21:35)
[2022-09-09] MEDS: CHLORHEXIDINE GLUCONATE 4% CLEANSER FOR DECOLONIZATION TP SCH (21:35)
[2022-09-10] MEDS: VASOPRESSIN 40 UNITS/100 ML BAG IV SCH (00:41)
[2022-09-10] MEDS: MIDODRINE HCL 5 MG TABLET PO SCH ×3 (06:23→22:29)
[2022-09-10] MEDS: BANATROL PLUS POWDER PACKET PO SCH ×3 (06:23→21:37)
[2022-09-10 08:37] LABS: HEMATOCRIT 19.1 % (32.4-45.2); MCHC 31.2 g/dl (32.0-36.0); MEAN CELL VOLUME 92.9 fl (80-96); MEAN PLT VOLUME 7.9 fl (7.5-11.1); PLATELET COUNT 143 10^3/uL (134-434); RBC 2.05 M/mm3 (3.60-5.2); RDW 18.6 % (11.6-15.6); WHITE BLOOD COUNT 13.4 K/mm3 (4.0-10.0)
[2022-09-10 08:40] LABS: HEMOGLOBIN 5.9 GM/dL (10.7-15.3)
[2022-09-10 08:58] LABS: CHLORIDE 102 mmol/L (98-107); SODIUM 138 mmol/L (136-145)
[2022-09-10 09:01] LABS: BLOOD UREA NITROGEN 13.9 mg/dL (7-18); CALCIUM 7.5 mg/dL (8.5-10.1); CO2 28 mmol/L (21-32); GLUCOSE,RANDOM 174 mg/dL (74-106)
[2022-09-10 09:04] LABS: CREATININE 0.8 mg/dL (0.55-1.3); MAGNESIUM 1.7 mg/dL (1.8-2.4); PHOSPHOROUS 2.3 mg/dL (2.5-4.9); SGPT/ALT 6 U/L (13-61)
[2022-09-10 09:05] LABS: SGOT/AST 17 U/L (15-37)
[2022-09-10 09:06] LABS: BILIRUBIN,TOTAL 0.3 mg/dL (0.2-1); TOT PROT 5.1 g/dl (6.4-8.2)
[2022-09-10 09:07] LABS: ALK PHOS 100 U/L (45-117)
[2022-09-10 09:14] LABS: ALBUMIN 1.5 g/dl (3.4-5.0); ANION GAP 8 MMOL/L (8-16)
[2022-09-10 09:31] LABS: ANISOCYTOSIS 3+; MACROCYTOSIS 1+
[2022-09-10] MEDS ORDERED: POTASSIUM CHLORIDE ORAL LIQUID 20 MEQ/15 ML NGT ONE (10:00)
[2022-09-10] MEDS ORDERED: MAGNESIUM SULF 50% (8.12 MEQ/2 ML-1 GM VIAL) IVPB ONE (10:00)
[2022-09-10] MEDS ORDERED: POTASSIUM PHOSPHATE 30 MM in SODIUM CHLORIDE 250 ML IVPB ONE (11:00)
[2022-09-10] MEDS: ASCORBIC ACID 250 MG TABLET (FP) PO SCH (11:41)
[2022-09-10] MEDS: LACTOBACILLUS ACIDOPHILUS 1 TABLET GT SCH (11:41)
[2022-09-10] MEDS: CHOLECALCIFEROL (VIT D3) 1,000 UNIT (25 MCG) TABLET PO SCH (11:41)
[2022-09-10] MEDS: SERTRALINE HCL 50 MG TABLET (FP) PO SCH (11:41)
[2022-09-10] MEDS: PANTOPRAZOLE SODIUM 40 MG VIAL IVPUSH SCH (11:42)
[2022-09-10] MEDS: COLLAGENASE CLOSTRIDIUM HIST. 30 GRAMS TUBE TP SCH ×2 (11:42→21:37)
[2022-09-10] MEDS: MULTIVIT-MINERALS ORAL LIQUID PO SCH (11:43)
[2022-09-10] MEDS: ENOXAPARIN NA (PORCINE) 40 MG/0.4 ML DISP.SYRIN SQ SCH (11:43)
[2022-09-10] MEDS: AMINO ACIDS/PROTEIN HYDROLYS 30 ML LIQUID.PKT GT SCH (11:43)
[2022-09-10] MEDS: VALPROATE SODIUM 250 MG/5 ML UNIT DOSE CUP GT SCH ×3 (11:43→21:37)
[2022-09-10] MEDS ORDERED: ACETAMINOPHEN 1000 MG/100 ML BAG IVPB ONE (11:51)
[2022-09-10] MEDS: VANCOMYCIN/WATER FOR INJ (PEG) 1,000 MG/200 ML BAG IVPB SCH (16:07)
[2022-09-10] MEDS: MEROPENEM 1 GM in DEXTROSE 5%-WATER 100 ML IVPB SCH (16:07)
[2022-09-10 17:34] LABS: EPI CELLS 36 /uL (0-25.1); HYALINE CASTS 3 /uL (0-3.1); URINE APPEARANCE CLEAR; URINE BACTERIA 51 /uL (0-1359); URINE BILIRUBIN NEGATIVE (NEGATIVE); URINE COLOR YELLOW; URINE GLUCOSE (UA) NEGATIVE (NEGATIVE); URINE KETONE NEGATIVE (NEGATIVE); URINE LEUK ESTERASE TRACE (NEGATIVE); URINE NITRITE NEGATIVE (NEGATIVE); URINE PROTEIN 1+ (NEGATIVE); URINE UROBILINOGEN 0.2 mg/dL (0.2-1.0); URINE WBC 64 /uL (0-25.8)
[2022-09-10 18:01] LABS: URINE RBC 360.3 /uL (0-23.9)
[2022-09-10 19:14] LABS: BASO % 0.1 % (0-2.0); EOS % 0.3 % (0-4.5); HEMATOCRIT 23.3 % (32.4-45.2); HEMOGLOBIN 7.6 GM/dL (10.7-15.3); LYMPH % 9.9 % (8-40); MCH 29.8 pg (25.7-33.7); MCHC 32.7 g/dl (32.0-36.0); MEAN CELL VOLUME 91.3 fl (80-96); MEAN PLT VOLUME 7.6 fl (7.5-11.1); MONO % 8.1 % (3.8-10.2); NEUT % 81.6 % (42.8-82.8); PLATELET COUNT 124 10^3/uL (134-434); RBC 2.56 M/mm3 (3.60-5.2); RDW 16.5 % (11.6-15.6); WHITE BLOOD COUNT 16.4 K/mm3 (4.0-10.0)
[2022-09-10] MEDS ORDERED: NOREPINEPHRINE BITARTRATE 4 MG/4 ML ML IV ONE (19:53)
[2022-09-10] MEDS: NOREPINEPHRINE BITARTRATE 4,000 MCG in DEXTROSE 5%-WATER - 496 ML IV SCH (20:03)
[2022-09-10] MEDS ORDERED: VASOPRESSIN 40 UNITS/100 ML BAG IV SCH (20:30)
[2022-09-10] MEDS ORDERED: NOREPINEPHRINE BITARTRATE 16,000 MCG in SODIUM CHLORIDE 484 ML IV SCH (20:30)
[2022-09-10] MEDS: NOREPINEPHRINE 0.9 % NACL 8 MG/250 ML BAG IVPB SCH (20:50)
[2022-09-10 21:17] LABS: ANISOCYTOSIS 2+; MACROCYTOSIS 2+; TARGET CELLS 1+
[2022-09-10] MEDS: ATORVASTATIN CA 20 MG TABLET (FP) PO SCH (21:37)
[2022-09-10] MEDS: CHLORHEXIDINE GLUCONATE 4% CLEANSER FOR DECOLONIZATION TP SCH (21:37)
[2022-09-10] MEDS ORDERED: POTASSIUM CHLORIDE ORAL LIQUID 20 MEQ/15 ML PO ONE (22:00)
[2022-09-11] MEDS: MEROPENEM 1 GM in DEXTROSE 5%-WATER 100 ML IVPB SCH ×2 (03:50→15:30)
[2022-09-11] MEDS: BANATROL PLUS POWDER PACKET PO SCH ×3 (05:32→21:11)
[2022-09-11] MEDS: VALPROATE SODIUM 250 MG/5 ML UNIT DOSE CUP GT SCH ×3 (05:32→21:11)
[2022-09-11] MEDS: MIDODRINE HCL 5 MG TABLET PO SCH ×3 (06:23→22:56)
[2022-09-11 07:22] LABS: CALCIUM 7.8 mg/dL (8.5-10.1)
[2022-09-11 07:23] LABS: ALBUMIN 1.5 g/dl (3.4-5.0); HEMATOCRIT 25.4 % (32.4-45.2); HEMOGLOBIN 8.5 GM/dL (10.7-15.3); MCH 30.5 pg (25.7-33.7); MCHC 33.7 g/dl (32.0-36.0); MEAN CELL VOLUME 90.5 fl (80-96); MEAN PLT VOLUME 7.6 fl (7.5-11.1); PLATELET COUNT 154 10^3/uL (134-434); RDW 16.4 % (11.6-15.6); WHITE BLOOD COUNT 22.3 K/mm3 (4.0-10.0)
[2022-09-11 07:25] LABS: PHOSPHOROUS 3.7 mg/dL (2.5-4.9)
[2022-09-11 07:26] LABS: CREATININE 0.8 mg/dL (0.55-1.3)
[2022-09-11 07:27] LABS: BILIRUBIN,TOTAL 0.3 mg/dL (0.2-1); TOT PROT 5.5 g/dl (6.4-8.2)
[2022-09-11 09:07] LABS: ANISOCYTOSIS 2+; MACROCYTOSIS 2+
[2022-09-11] MEDS: AMINO ACIDS/PROTEIN HYDROLYS 30 ML LIQUID.PKT GT SCH (09:21)
[2022-09-11] MEDS: CHOLECALCIFEROL (VIT D3) 1,000 UNIT (25 MCG) TABLET PO SCH (09:21)
[2022-09-11] MEDS: ENOXAPARIN NA (PORCINE) 40 MG/0.4 ML DISP.SYRIN SQ SCH (09:21)
[2022-09-11] MEDS: ASCORBIC ACID 250 MG TABLET (FP) PO SCH (09:21)
[2022-09-11] MEDS: SERTRALINE HCL 50 MG TABLET (FP) PO SCH (09:21)
[2022-09-11] MEDS: PANTOPRAZOLE SODIUM 40 MG VIAL IVPUSH SCH (09:21)
[2022-09-11] MEDS: LACTOBACILLUS ACIDOPHILUS 1 TABLET GT SCH (09:21)
[2022-09-11] MEDS: MULTIVIT-MINERALS ORAL LIQUID PO SCH (09:22)
[2022-09-11] MEDS: COLLAGENASE CLOSTRIDIUM HIST. 30 GRAMS TUBE TP SCH ×2 (09:22→21:12)
[2022-09-11] MEDS ORDERED: POTASSIUM CHLORIDE 20 MEQ PREMIX IVPB 100 ML IVPB SCH (10:30)
[2022-09-11] MEDS: KCL 20 MEQ PREMIX BAG 100 ML IVPB SCH ×2 (11:40→13:06)
[2022-09-11] MEDS: VASOPRESSIN 40 UNITS/100 ML BAG IV SCH (11:41)
[2022-09-11] MEDS: SCOPOLAMINE HYDROBROMIDE 1 PATCH PATCH.TD72 TD SCH (11:41)
[2022-09-11] MEDS: VANCOMYCIN/WATER FOR INJ (PEG) 1,000 MG/200 ML BAG IVPB SCH (15:30)
[2022-09-11] MEDS: ATORVASTATIN CA 20 MG TABLET (FP) PO SCH (21:11)
[2022-09-11] MEDS: CHLORHEXIDINE GLUCONATE 4% CLEANSER FOR DECOLONIZATION TP SCH (21:11)
[2022-09-11] MEDS: NOREPINEPHRINE 0.9 % NACL 8 MG/250 ML BAG IVPB SCH (21:11)
[2022-09-12] MEDS: MIDODRINE HCL 5 MG TABLET GT SCH ×3 (01:27→17:09)
[2022-09-12] MEDS: MEROPENEM 1 GM in DEXTROSE 5%-WATER 100 ML IVPB SCH ×2 (02:00→14:12)
[2022-09-12] MEDS: BANATROL PLUS POWDER PACKET PO SCH ×3 (06:21→21:45)
[2022-09-12] MEDS: VALPROATE SODIUM 250 MG/5 ML UNIT DOSE CUP GT SCH ×3 (06:21→21:46)
[2022-09-12 08:13] LABS: HEMATOCRIT 21.6 % (32.4-45.2); HEMOGLOBIN 7.1 GM/dL (10.7-15.3); MCH 30.2 pg (25.7-33.7); MCHC 32.7 g/dl (32.0-36.0); MEAN CELL VOLUME 92.1 fl (80-96); MEAN PLT VOLUME 7.2 fl (7.5-11.1); PLATELET COUNT 151 10^3/uL (134-434); RBC 2.34 M/mm3 (3.60-5.2); RDW 17.2 % (11.6-15.6); WHITE BLOOD COUNT 20.5 K/mm3 (4.0-10.0)
[2022-09-12] MEDS: AMINO ACIDS/PROTEIN HYDROLYS 30 ML LIQUID.PKT GT SCH (08:32)
[2022-09-12] MEDS: MULTIVIT-MINERALS ORAL LIQUID GT SCH (09:00)
[2022-09-12] MEDS: CHOLECALCIFEROL (VIT D SOLUTION) 400 UNIT/1 ML DROPS GT SCH (09:01)
[2022-09-12] MEDS: LACTOBACILLUS ACIDOPHILUS 1 TABLET GT SCH (09:01)
[2022-09-12] MEDS: SERTRALINE HCL 50 MG TABLET (FP) GT SCH (09:01)
[2022-09-12] MEDS: PANTOPRAZOLE SODIUM 40 MG VIAL IVPUSH SCH (09:02)
[2022-09-12] MEDS: ENOXAPARIN NA (PORCINE) 40 MG/0.4 ML DISP.SYRIN SQ SCH (09:02)
[2022-09-12] MEDS: COLLAGENASE CLOSTRIDIUM HIST. 30 GRAMS TUBE TP SCH ×2 (09:02→21:46)
[2022-09-12] MEDS: ASCORBIC ACID 500 MG/5 ML UNIT DOSE CUP GT SCH (09:03)
[2022-09-12 09:42] LABS: CHLORIDE 102 mmol/L (98-107); SODIUM 134 mmol/L (136-145)
[2022-09-12 10:14] LABS: ALBUMIN 1.2 g/dl (3.4-5.0); ANION GAP 8 MMOL/L (8-16); CALCIUM 7.8 mg/dL (8.5-10.1); CO2 24 mmol/L (21-32); GLUCOSE,RANDOM 132 mg/dL (74-106); MAGNESIUM 1.9 mg/dL (1.8-2.4)
[2022-09-12 10:16] LABS: CREATININE 0.8 mg/dL (0.55-1.3)
[2022-09-12 10:17] LABS: PHOSPHOROUS 2.6 mg/dL (2.5-4.9); SGOT/AST 14 U/L (15-37)
[2022-09-12 10:18] LABS: BILIRUBIN,TOTAL 0.3 mg/dL (0.2-1)
[2022-09-12 10:19] LABS: ALK PHOS 122 U/L (45-117)
[2022-09-12 10:23] LABS: SGPT/ALT < 6 U/L (13-61)
[2022-09-12 11:12] LABS: ANISOCYTOSIS 2+; MACROCYTOSIS 0
[2022-09-12] MEDS: VASOPRESSIN 40 UNITS/100 ML BAG IV SCH (12:37)
[2022-09-12] MEDS: VANCOMYCIN/WATER FOR INJ (PEG) 1,000 MG/200 ML BAG IVPB SCH (14:12)
[2022-09-12] MEDS ORDERED: VASOPRESSIN 20 UNITS/ML VIAL IV ONE (20:29)
[2022-09-12] MEDS: NOREPINEPHRINE 0.9 % NACL 8 MG/250 ML BAG IVPB SCH (21:46)
[2022-09-12] MEDS: CHLORHEXIDINE GLUCONATE 4% CLEANSER FOR DECOLONIZATION TP SCH (21:46)
[2022-09-12] MEDS: ATORVASTATIN CA 20 MG TABLET (FP) GT SCH (21:46)
[2022-09-13] MEDS: VASOPRESSIN 40 UNITS/100 ML BAG IV SCH ×2 (00:56→17:30)
[2022-09-13] MEDS: MIDODRINE HCL 5 MG TABLET GT SCH ×3 (01:20→17:30)
[2022-09-13] MEDS: MEROPENEM 1 GM in DEXTROSE 5%-WATER 100 ML IVPB SCH (02:02)
[2022-09-13] MEDS: BANATROL PLUS POWDER PACKET PO SCH ×3 (05:57→21:34)
[2022-09-13] MEDS: VALPROATE SODIUM 250 MG/5 ML UNIT DOSE CUP GT SCH ×3 (05:57→21:35)
[2022-09-13 06:50] LABS: HEMATOCRIT 19.8 % (32.4-45.2); MCH 30.3 pg (25.7-33.7); MCHC 32.5 g/dl (32.0-36.0); MEAN CELL VOLUME 93.5 fl (80-96); MEAN PLT VOLUME 7.2 fl (7.5-11.1); PLATELET COUNT 161 10^3/uL (134-434); RBC 2.12 M/mm3 (3.60-5.2); WHITE BLOOD COUNT 20.2 K/mm3 (4.0-10.0)
[2022-09-13 06:52] LABS: HEMOGLOBIN 6.4 GM/dL (10.7-15.3)
[2022-09-13 07:25] LABS: CHLORIDE 102 mmol/L (98-107); SODIUM 133 mmol/L (136-145)
[2022-09-13 07:27] LABS: CALCIUM 7.6 mg/dL (8.5-10.1)
[2022-09-13 07:28] LABS: ALBUMIN 1.1 g/dl (3.4-5.0); ANION GAP 6 MMOL/L (8-16); CO2 26 mmol/L (21-32); GLUCOSE,RANDOM 132 mg/dL (74-106); MAGNESIUM 1.8 mg/dL (1.8-2.4)
[2022-09-13 07:31] LABS: CREATININE 0.6 mg/dL (0.55-1.3); PHOSPHOROUS 2.8 mg/dL (2.5-4.9); SGOT/AST 15 U/L (15-37)
[2022-09-13 07:33] LABS: BILIRUBIN,TOTAL 0.3 mg/dL (0.2-1); TOT PROT 4.9 g/dl (6.4-8.2)
[2022-09-13 07:34] LABS: ALK PHOS 125 U/L (45-117)
[2022-09-13 07:36] LABS: BLOOD UREA NITROGEN 21.6 mg/dL (7-18); SGPT/ALT < 6 U/L (13-61)
[2022-09-13] MEDS: AMINO ACIDS/PROTEIN HYDROLYS 30 ML LIQUID.PKT GT SCH (09:43)
[2022-09-13] MEDS: SERTRALINE HCL 50 MG TABLET (FP) GT SCH (09:43)
[2022-09-13] MEDS: ENOXAPARIN NA (PORCINE) 40 MG/0.4 ML DISP.SYRIN SQ SCH (09:43)
[2022-09-13] MEDS: PANTOPRAZOLE SODIUM 40 MG VIAL IVPUSH SCH (09:44)
[2022-09-13] MEDS: COLLAGENASE CLOSTRIDIUM HIST. 30 GRAMS TUBE TP SCH ×2 (09:44→21:35)
[2022-09-13] MEDS: LACTOBACILLUS ACIDOPHILUS 1 TABLET GT SCH (09:44)
[2022-09-13] MEDS: HYDROCORTISONE SOD SUCCINATE 100 MG/2 ML VIAL IVPB SCH ×2 (09:47→17:30)
[2022-09-13] MEDS: ASCORBIC ACID 500 MG/5 ML UNIT DOSE CUP GT SCH (09:47)
[2022-09-13] MEDS: MULTIVIT-MINERALS ORAL LIQUID GT SCH (09:47)
[2022-09-13] MEDS: CHOLECALCIFEROL (VIT D SOLUTION) 400 UNIT/1 ML DROPS GT SCH (09:47)
[2022-09-13 11:31] LABS: ANISOCYTOSIS 2+; MACROCYTOSIS 0
[2022-09-13] MEDS: CEFEPIME 1 GM in DEXTROSE 5%-WATER 100 ML IVPB SCH ×2 (12:44→17:30)
[2022-09-13] MEDS: VANCOMYCIN/WATER FOR INJ (PEG) 1,000 MG/200 ML BAG IVPB SCH (15:28)
[2022-09-13] MEDS: NOREPINEPHRINE 0.9 % NACL 8 MG/250 ML BAG IVPB SCH (15:28)
[2022-09-13 17:40] LABS: HEMATOCRIT 24.8 % (32.4-45.2); HEMOGLOBIN 8.3 GM/dL (10.7-15.3); MCH 30.5 pg (25.7-33.7); MCHC 33.3 g/dl (32.0-36.0); MEAN CELL VOLUME 91.6 fl (80-96); MEAN PLT VOLUME 6.9 fl (7.5-11.1); PLATELET COUNT 167 10^3/uL (134-434); RBC 2.71 M/mm3 (3.60-5.2); RDW 15.2 % (11.6-15.6); WHITE BLOOD COUNT 17.3 K/mm3 (4.0-10.0)
[2022-09-13] MEDS: CHLORHEXIDINE GLUCONATE 4% CLEANSER FOR DECOLONIZATION TP SCH (21:35)
[2022-09-13] MEDS: ATORVASTATIN CA 20 MG TABLET (FP) GT SCH (21:35)
[2022-09-14] MEDS: MIDODRINE HCL 5 MG TABLET GT SCH ×2 (00:31→09:20)
[2022-09-14] MEDS: HYDROCORTISONE SOD SUCCINATE 100 MG/2 ML VIAL IVPB SCH ×3 (01:09→17:37)
[2022-09-14] MEDS: CEFEPIME 1 GM in DEXTROSE 5%-WATER 100 ML IVPB SCH ×3 (01:09→17:37)
[2022-09-14] MEDS: BANATROL PLUS POWDER PACKET PO SCH ×3 (05:27→14:15)
[2022-09-14] MEDS: VALPROATE SODIUM 250 MG/5 ML UNIT DOSE CUP GT SCH ×3 (05:27→14:15)
[2022-09-14 06:40] LABS: HEMATOCRIT 22.9 % (32.4-45.2); HEMOGLOBIN 7.5 GM/dL (10.7-15.3); MCH 29.9 pg (25.7-33.7); MCHC 32.7 g/dl (32.0-36.0); MEAN CELL VOLUME 91.3 fl (80-96); MEAN PLT VOLUME 7.4 fl (7.5-11.1); PLATELET COUNT 155 10^3/uL (134-434); RBC 2.51 M/mm3 (3.60-5.2); RDW 15.8 % (11.6-15.6); WHITE BLOOD COUNT 12.8 K/mm3 (4.0-10.0)
[2022-09-14 06:59] LABS: BLOOD UREA NITROGEN 22.3 mg/dL (7-18)
[2022-09-14 07:01] LABS: CALCIUM 7.4 mg/dL (8.5-10.1); MAGNESIUM 1.8 mg/dL (1.8-2.4)
[2022-09-14 07:02] LABS: CREATININE 0.5 mg/dL (0.55-1.3)
[2022-09-14 09:06] LABS: ANISOCYTOSIS 0; HELMET CELLS 0; HOWELL-JOLLY BODIES 0; MACROCYTOSIS 0; OVALOCYTE 0; ROULEAU 0; SICKELED CELLS 0; TARGET CELLS 0; TEAR DROP CELLS 0; TOXIC GRANULATION 0
[2022-09-14] MEDS: ENOXAPARIN NA (PORCINE) 40 MG/0.4 ML DISP.SYRIN SQ SCH (09:19)
[2022-09-14] MEDS: PANTOPRAZOLE SODIUM 40 MG VIAL IVPUSH SCH (09:19)
[2022-09-14] MEDS: KCL 10 MEQ IVPB 10 MEQ/100 ML INFUS.BAG IVPB SCH ×4 (09:20→19:54)
[2022-09-14] MEDS: AMINO ACIDS/PROTEIN HYDROLYS 30 ML LIQUID.PKT GT SCH (09:20)
[2022-09-14] MEDS: LACTOBACILLUS ACIDOPHILUS 1 TABLET GT SCH (09:20)
[2022-09-14] MEDS: SERTRALINE HCL 50 MG TABLET (FP) GT SCH (09:20)
[2022-09-14] MEDS: CHOLECALCIFEROL (VIT D SOLUTION) 400 UNIT/1 ML DROPS GT SCH (09:21)
[2022-09-14] MEDS: MULTIVIT-MINERALS ORAL LIQUID GT SCH (09:21)
[2022-09-14] MEDS: ASCORBIC ACID 500 MG/5 ML UNIT DOSE CUP GT SCH (09:21)
[2022-09-14] MEDS: COLLAGENASE CLOSTRIDIUM HIST. 30 GRAMS TUBE TP SCH ×2 (09:22→21:06)
[2022-09-14] MEDS: SCOPOLAMINE HYDROBROMIDE 1 PATCH PATCH.TD72 TD SCH (11:11)
[2022-09-14] MEDS: VANCOMYCIN/WATER FOR INJ (PEG) 1,000 MG/200 ML BAG IVPB SCH (14:14)
[2022-09-14] MEDS ORDERED: NOREPINEPHRINE 0.9 % NACL 8 MG/250 ML BAG IVPB SCH (14:15)
[2022-09-14] MEDS ORDERED: VALPROATE SODIUM 500 MG/5 ML VIAL IVPB SCH (15:00)
[2022-09-14] MEDS ORDERED: FUROSEMIDE 40 MG/4 ML INJECTABLE VIAL IVPUSH ONE (17:21)
[2022-09-14] MEDS: NOREPINEPHRINE BITARTRATE IVPB SCH (17:37)
[2022-09-14] MEDS: SODIUM CHLORIDE IVPB SCH (17:37)
[2022-09-14] MEDS: VALPROATE SODIUM INJECTION 375 MG in SODIUM CHLORIDE 100 ML IVPB SCH ×2 (17:38→21:06)
[2022-09-14] MEDS: CHLORHEXIDINE GLUCONATE 4% CLEANSER FOR DECOLONIZATION TP SCH (21:06)
[2022-09-15] MEDS: HYDROCORTISONE SOD SUCCINATE 100 MG/2 ML VIAL IVPB SCH ×3 (01:16→17:35)
[2022-09-15] MEDS: CEFEPIME 1 GM in DEXTROSE 5%-WATER 100 ML IVPB SCH ×3 (01:26→17:35)
[2022-09-15] MEDS: VALPROATE SODIUM INJECTION 375 MG in SODIUM CHLORIDE 100 ML IVPB SCH ×4 (02:28→22:09)
[2022-09-15 07:38] LABS: HEMATOCRIT 24.6 % (32.4-45.2); HEMOGLOBIN 8.2 GM/dL (10.7-15.3); MCH 30.6 pg (25.7-33.7); MCHC 33.3 g/dl (32.0-36.0); MEAN CELL VOLUME 91.7 fl (80-96); MEAN PLT VOLUME 7.6 fl (7.5-11.1); PLATELET COUNT 309 10^3/uL (134-434); RBC 2.69 M/mm3 (3.60-5.2); RDW 15.5 % (11.6-15.6); WHITE BLOOD COUNT 11.4 K/mm3 (4.0-10.0)
[2022-09-15 08:09] LABS: BLOOD UREA NITROGEN 28.3 mg/dL (7-18); CALCIUM 7.8 mg/dL (8.5-10.1); MAGNESIUM 1.8 mg/dL (1.8-2.4)
[2022-09-15 08:12] LABS: CREATININE 0.7 mg/dL (0.55-1.3)
[2022-09-15 08:14] LABS: BILIRUBIN,TOTAL 0.4 mg/dL (0.2-1)
[2022-09-15 08:22] LABS: ALBUMIN 1.4 g/dl (3.4-5.0)
[2022-09-15] MEDS: KCL 10 MEQ IVPB 10 MEQ/100 ML INFUS.BAG IVPB SCH ×3 (09:14→12:32)
[2022-09-15] MEDS: ENOXAPARIN NA (PORCINE) 40 MG/0.4 ML DISP.SYRIN SQ SCH (09:14)
[2022-09-15] MEDS: PANTOPRAZOLE SODIUM 40 MG VIAL IVPUSH SCH (09:14)
[2022-09-15] MEDS: COLLAGENASE CLOSTRIDIUM HIST. 30 GRAMS TUBE TP SCH ×2 (09:15→21:36)
[2022-09-15] MEDS: ASPIRIN 81 MG CHEWABLE TABLETS NGT SCH (09:15)
[2022-09-15 09:20] LABS: ANISOCYTOSIS 1+; MACROCYTOSIS 1+
[2022-09-15] MEDS ORDERED: ALBUMIN HUMAN 25% 12.5 GM/50 ML VIAL IV SCH (11:45)
[2022-09-15] MEDS ORDERED: ALBUMIN HUMAN 25% 100 ML VIAL IV ONE (13:00)
[2022-09-15] MEDS ORDERED: FUROSEMIDE 40 MG/4 ML INJECTABLE VIAL IVPUSH SCH (13:00)
[2022-09-15] MEDS: BANATROL PLUS POWDER PACKET PO SCH ×2 (13:10→21:36)
[2022-09-15] MEDS: SODIUM CHLORIDE IVPB SCH (14:09)
[2022-09-15] MEDS: NOREPINEPHRINE BITARTRATE IVPB SCH (14:09)
[2022-09-15] MEDS: VANCOMYCIN/WATER FOR INJ (PEG) 1,000 MG/200 ML BAG IVPB SCH (15:05)
[2022-09-15] MEDS: MIDODRINE HCL 5 MG TABLET GT SCH (17:35)
[2022-09-15] MEDS: ATORVASTATIN CA 20 MG TABLET (FP) GT SCH (21:36)
[2022-09-15] MEDS: CHLORHEXIDINE GLUCONATE 4% CLEANSER FOR DECOLONIZATION TP SCH (21:36)
[2022-09-15] MEDS ORDERED: ACETAMINOPHEN 1000 MG/100 ML BAG IVPB ONE (23:10)
[2022-09-16] MEDS: CEFEPIME 1 GM in DEXTROSE 5%-WATER 100 ML IVPB SCH ×3 (02:03→17:28)
[2022-09-16] MEDS: HYDROCORTISONE SOD SUCCINATE 100 MG/2 ML VIAL IVPB SCH ×2 (02:03→21:44)
[2022-09-16] MEDS: VALPROATE SODIUM INJECTION 375 MG in SODIUM CHLORIDE 100 ML IVPB SCH ×2 (03:03→09:55)
[2022-09-16] MEDS: MIDODRINE HCL 5 MG TABLET GT SCH ×2 (03:03→09:55)
[2022-09-16] MEDS: BANATROL PLUS POWDER PACKET PO SCH ×3 (06:12→21:39)
[2022-09-16 07:35] LABS: HEMOGLOBIN 7.5 GM/dL (10.7-15.3); MCH 30.4 pg (25.7-33.7); MCHC 32.6 g/dl (32.0-36.0); MEAN CELL VOLUME 93.2 fl (80-96); MEAN PLT VOLUME 7.4 fl (7.5-11.1); PLATELET COUNT 324 10^3/uL (134-434); RBC 2.47 M/mm3 (3.60-5.2); RDW 15.5 % (11.6-15.6); WHITE BLOOD COUNT 12.3 K/mm3 (4.0-10.0)
[2022-09-16 07:59] LABS: CHLORIDE 112 mmol/L (98-107); SODIUM 146 mmol/L (136-145)
[2022-09-16 08:01] LABS: CALCIUM 8.1 mg/dL (8.5-10.1)
[2022-09-16 08:02] LABS: BLOOD UREA NITROGEN 32.1 mg/dL (7-18); CO2 24 mmol/L (21-32); GLUCOSE,RANDOM 121 mg/dL (74-106)
[2022-09-16 08:05] LABS: CHOLESTEROL 77 mg/dL (50-200); CREATININE 0.7 mg/dL (0.55-1.3); PHOSPHOROUS 3.3 mg/dL (2.5-4.9); TRIGLYCERIDES 87 mg/dL (0-150)
[2022-09-16 08:06] LABS: LDL CHOLESTEROL (ONLY SJRH) 45 mg/dL (5-100)
[2022-09-16 08:07] LABS: HDL CHOLESTEROL 16 mg/dL (40-60)
[2022-09-16 08:31] LABS: ANION GAP 9 MMOL/L (8-16)
[2022-09-16] MEDS ORDERED: POTASSIUM CHLORIDE 20 MEQ PREMIX IVPB 100 ML IVPB SCH ×2 (08:45→17:30)
[2022-09-16 09:05] LABS: ANISOCYTOSIS 1+; MACROCYTOSIS 1+
[2022-09-16 09:25] LABS: BILIRUBIN,DIRECT 0.2 mg/dL (0.0-0.2); SGOT/AST 28 U/L (15-37); SGPT/ALT 20 U/L (13-61)
[2022-09-16 09:27] LABS: BILIRUBIN,TOTAL 0.5 mg/dL (0.2-1); TOT PROT 5.9 g/dl (6.4-8.2)
[2022-09-16 09:28] LABS: ALK PHOS 91 U/L (45-117)
[2022-09-16] MEDS ORDERED: HYDROCORTISONE SOD SUCCINATE 100 MG/2 ML VIAL IVPB SCH (09:30)
[2022-09-16] MEDS: PANTOPRAZOLE SODIUM 40 MG VIAL IVPUSH SCH (09:53)
[2022-09-16] MEDS: KCL 10 MEQ IVPB 10 MEQ/100 ML INFUS.BAG IVPB SCH ×2 (09:53→13:40)
[2022-09-16] MEDS: AMINO ACIDS/PROTEIN HYDROLYS 30 ML LIQUID.PKT GT SCH ×2 (09:54→13:53)
[2022-09-16] MEDS: ASPIRIN 81 MG CHEWABLE TABLETS NGT SCH ×2 (09:56→13:48)
[2022-09-16] MEDS: LACTOBACILLUS ACIDOPHILUS 1 TABLET GT SCH ×2 (09:56→13:46)
[2022-09-16] MEDS: COLLAGENASE CLOSTRIDIUM HIST. 30 GRAMS TUBE TP SCH ×2 (09:56→21:41)
[2022-09-16] MEDS: MULTIVIT-MINERALS ORAL LIQUID GT SCH ×2 (09:56→13:51)
[2022-09-16] MEDS: ASCORBIC ACID 500 MG/5 ML UNIT DOSE CUP GT SCH ×2 (09:57→13:53)
[2022-09-16] MEDS: SERTRALINE HCL 50 MG TABLET (FP) GT SCH (09:57)
[2022-09-16] MEDS: CHOLECALCIFEROL (VIT D SOLUTION) 400 UNIT/1 ML DROPS GT SCH ×2 (09:57→13:51)
[2022-09-16] MEDS: MIDODRINE HCL 5 MG TABLET PO SCH ×2 (13:46→17:41)
[2022-09-16] MEDS: FOLIC ACID 1 MG TABLET (FP) PO SCH (13:46)
[2022-09-16 15:01] LABS: CHLORIDE 115 mmol/L (98-107); SODIUM 146 mmol/L (136-145)
[2022-09-16 15:02] LABS: CALCIUM 8.1 mg/dL (8.5-10.1)
[2022-09-16 15:03] LABS: ALBUMIN 1.8 g/dl (3.4-5.0); BLOOD UREA NITROGEN 30.8 mg/dL (7-18); CO2 26 mmol/L (21-32); GLUCOSE,RANDOM 115 mg/dL (74-106)
[2022-09-16 15:06] LABS: CREATININE 0.7 mg/dL (0.55-1.3); SGOT/AST 22 U/L (15-37); SGPT/ALT 18 U/L (13-61)
[2022-09-16 15:08] LABS: BILIRUBIN,TOTAL 0.5 mg/dL (0.2-1); TOT PROT 5.7 g/dl (6.4-8.2)
[2022-09-16 15:09] LABS: ALK PHOS 89 U/L (45-117); ANION GAP 6 MMOL/L (8-16)
[2022-09-16] MEDS: VANCOMYCIN/WATER FOR INJ (PEG) 1,000 MG/200 ML BAG IVPB SCH (15:36)
[2022-09-16] MEDS: NOREPINEPHRINE BITARTRATE IVPB SCH (19:00)
[2022-09-16] MEDS: SODIUM CHLORIDE IVPB SCH (19:00)
[2022-09-16 19:06] LABS: CHLORIDE 114 mmol/L (98-107); SODIUM 147 mmol/L (136-145)
[2022-09-16 19:08] LABS: CO2 24 mmol/L (21-32); GLUCOSE,RANDOM 111 mg/dL (74-106)
[2022-09-16 19:11] LABS: CREATININE 0.7 mg/dL (0.55-1.3)
[2022-09-16 19:14] LABS: ANION GAP 9 MMOL/L (8-16)
[2022-09-16] MEDS ORDERED: POTASSIUM CHLORIDE 20 MEQ PREMIX IVPB 100 ML IVPB STA (20:10)
[2022-09-16] MEDS: VALPROATE SODIUM 250 MG/5 ML UNIT DOSE CUP PO SCH (21:40)
[2022-09-16] MEDS: ATORVASTATIN CA 20 MG TABLET (FP) PO SCH (21:40)
[2022-09-16] MEDS: CHLORHEXIDINE GLUCONATE 4% CLEANSER FOR DECOLONIZATION TP SCH (21:40)
[2022-09-17] MEDS: CEFEPIME 1 GM in DEXTROSE 5%-WATER 100 ML IVPB SCH ×2 (01:02→09:20)
[2022-09-17] MEDS: MIDODRINE HCL 5 MG TABLET PO SCH ×3 (02:49→17:42)
[2022-09-17] MEDS: VALPROATE SODIUM 250 MG/5 ML UNIT DOSE CUP PO SCH ×3 (06:35→22:00)
[2022-09-17] MEDS: BANATROL PLUS POWDER PACKET PO SCH ×2 (06:35→14:55)
[2022-09-17 07:26] LABS: BASO % 0.1 % (0-2.0); HEMATOCRIT 22.7 % (32.4-45.2); HEMOGLOBIN 7.5 GM/dL (10.7-15.3); LYMPH % 10.1 % (8-40); MEAN CELL VOLUME 94.1 fl (80-96); MEAN PLT VOLUME 7.5 fl (7.5-11.1); NEUT % 79.8 % (42.8-82.8); PLATELET COUNT 342 10^3/uL (134-434); RBC 2.42 M/mm3 (3.60-5.2); RDW 15.6 % (11.6-15.6); WHITE BLOOD COUNT 14.7 K/mm3 (4.0-10.0)
[2022-09-17] MEDS ORDERED: POTASSIUM CHLORIDE 20 MEQ PREMIX IVPB 100 ML IVPB ONE (07:26)
[2022-09-17 07:42] LABS: CALCIUM 8.3 mg/dL (8.5-10.1)
[2022-09-17 07:43] LABS: ALBUMIN 1.8 g/dl (3.4-5.0); BLOOD UREA NITROGEN 31.3 mg/dL (7-18); MAGNESIUM 1.9 mg/dL (1.8-2.4)
[2022-09-17 07:46] LABS: CREATININE 0.6 mg/dL (0.55-1.3); PHOSPHOROUS 2.4 mg/dL (2.5-4.9)
[2022-09-17 07:48] LABS: BILIRUBIN,TOTAL 0.6 mg/dL (0.2-1); TOT PROT 5.6 g/dl (6.4-8.2)
[2022-09-17] MEDS: PANTOPRAZOLE SODIUM 40 MG VIAL IVPUSH SCH (09:19)
[2022-09-17] MEDS: LACTOBACILLUS ACIDOPHILUS 1 TABLET PO SCH (09:20)
[2022-09-17] MEDS: HYDROCORTISONE SOD SUCCINATE 100 MG/2 ML VIAL IVPB SCH ×2 (09:20→22:01)
[2022-09-17] MEDS: SERTRALINE HCL 50 MG TABLET (FP) PO SCH (09:20)
[2022-09-17] MEDS: AMINO ACIDS/PROTEIN HYDROLYS 30 ML LIQUID.PKT PO SCH (09:21)
[2022-09-17] MEDS: FOLIC ACID 1 MG TABLET (FP) PO SCH (09:21)
[2022-09-17] MEDS: COLLAGENASE CLOSTRIDIUM HIST. 30 GRAMS TUBE TP SCH ×2 (09:21→22:01)
[2022-09-17] MEDS: MULTIVIT-MINERALS ORAL LIQUID PO SCH (09:21)
[2022-09-17] MEDS: ASPIRIN 81 MG CHEWABLE TABLETS PO SCH (09:21)
[2022-09-17] MEDS: ASCORBIC ACID 500 MG/5 ML UNIT DOSE CUP PO SCH (09:22)
[2022-09-17] MEDS: CHOLECALCIFEROL (VIT D SOLUTION) 400 UNIT/1 ML DROPS PO SCH (09:22)
[2022-09-17] MEDS ORDERED: POTASSIUM PHOSPHATE 15 MM in DEXTROSE 5%-WATER - 250 ML IVPB ONE (09:30)
[2022-09-17] MEDS: SCOPOLAMINE HYDROBROMIDE 1 PATCH PATCH.TD72 TD SCH (11:11)
[2022-09-17] MEDS ORDERED: LOPERAMIDE HCL 2 MG CAPSULE PO SCH (11:30)
[2022-09-17] MEDS: LOPERAMIDE HCL 2 MG CAPSULE PO SCH (17:43)
[2022-09-17] MEDS: NOREPINEPHRINE BITARTRATE 16,000 MCG in DEXTROSE 5%-WATER - 500 ML IVPB SCH (19:15)
[2022-09-17] MEDS ORDERED: LOPERAMIDE HCL 1 MG/5 ML UNIT DOSE CUP PO SCH (22:00)
[2022-09-17] MEDS: ATORVASTATIN CA 20 MG TABLET (FP) PO SCH (22:00)
[2022-09-17] MEDS: CHLORHEXIDINE GLUCONATE 4% CLEANSER FOR DECOLONIZATION TP SCH (22:00)
[2022-09-18] MEDS: MIDODRINE HCL 5 MG TABLET PO SCH ×3 (03:29→17:56)
[2022-09-18] MEDS: VALPROATE SODIUM 250 MG/5 ML UNIT DOSE CUP PO SCH ×3 (07:08→21:37)
[2022-09-18 07:39] LABS: HEMATOCRIT 22.7 % (32.4-45.2); HEMOGLOBIN 7.5 GM/dL (10.7-15.3); LYMPH % 10.6 % (8-40); MCH 31.1 pg (25.7-33.7); MEAN CELL VOLUME 94.3 fl (80-96); MEAN PLT VOLUME 7.6 fl (7.5-11.1); MONO % 9.2 % (3.8-10.2); NEUT % 80.2 % (42.8-82.8); PLATELET COUNT 360 10^3/uL (134-434); RBC 2.41 M/mm3 (3.60-5.2); RDW 16.1 % (11.6-15.6); WHITE BLOOD COUNT 11.1 K/mm3 (4.0-10.0)
[2022-09-18 08:02] LABS: CALCIUM 8.2 mg/dL (8.5-10.1)
[2022-09-18 08:03] LABS: ALBUMIN 1.6 g/dl (3.4-5.0); BLOOD UREA NITROGEN 29.1 mg/dL (7-18); MAGNESIUM 1.8 mg/dL (1.8-2.4)
[2022-09-18 08:06] LABS: CREATININE 0.5 mg/dL (0.55-1.3); PHOSPHOROUS 2.9 mg/dL (2.5-4.9)
[2022-09-18 08:07] LABS: TOT PROT 5.2 g/dl (6.4-8.2)
[2022-09-18 08:08] LABS: BILIRUBIN,TOTAL 0.4 mg/dL (0.2-1)
[2022-09-18] MEDS: SERTRALINE HCL 50 MG TABLET (FP) PO SCH (09:21)
[2022-09-18] MEDS: ASPIRIN 81 MG CHEWABLE TABLETS PO SCH (09:21)
[2022-09-18] MEDS: HYDROCORTISONE SOD SUCCINATE 100 MG/2 ML VIAL IVPB SCH ×2 (09:21→21:38)
[2022-09-18] MEDS: PANTOPRAZOLE SODIUM 40 MG VIAL IVPUSH SCH (09:21)
[2022-09-18] MEDS: LACTOBACILLUS ACIDOPHILUS 1 TABLET PO SCH (09:22)
[2022-09-18] MEDS: AMINO ACIDS/PROTEIN HYDROLYS 30 ML LIQUID.PKT PO SCH (09:22)
[2022-09-18] MEDS: COLLAGENASE CLOSTRIDIUM HIST. 30 GRAMS TUBE TP SCH ×2 (09:23→21:38)
[2022-09-18] MEDS: CHOLECALCIFEROL (VIT D SOLUTION) 400 UNIT/1 ML DROPS PO SCH (09:25)
[2022-09-18] MEDS: FOLIC ACID 1 MG TABLET (FP) PO SCH (09:25)
[2022-09-18] MEDS: MULTIVIT-MINERALS ORAL LIQUID PO SCH (09:25)
[2022-09-18] MEDS: ASCORBIC ACID 500 MG/5 ML UNIT DOSE CUP PO SCH (09:25)
[2022-09-18] MEDS: LOPERAMIDE HCL 2 MG CAPSULE PO SCH (11:32)
[2022-09-18] MEDS: NOREPINEPHRINE BITARTRATE 16,000 MCG in DEXTROSE 5%-WATER - 500 ML IVPB SCH (13:42)
[2022-09-18] MEDS ORDERED: POTASSIUM CHLORIDE 20 MEQ PREMIX IVPB 100 ML IVPB STA (21:05)
[2022-09-18] MEDS: CHLORHEXIDINE GLUCONATE 4% CLEANSER FOR DECOLONIZATION TP SCH (21:37)
[2022-09-18] MEDS: ATORVASTATIN CA 20 MG TABLET (FP) PO SCH (21:37)
[2022-09-19 01:06] LABS: STOOL CHLORIDE 60 mmol/L (.); STOOL POTASSIUM 72 mmol/L (.); STOOL SODIUM 64 mmol/L (.)
[2022-09-19] MEDS: MIDODRINE HCL 5 MG TABLET PO SCH ×4 (05:52→21:03)
[2022-09-19] MEDS: VALPROATE SODIUM 250 MG/5 ML UNIT DOSE CUP PO SCH (05:53)
[2022-09-19 08:07] LABS: BASO % 0.1 % (0-2.0); HEMATOCRIT 22.3 % (32.4-45.2); HEMOGLOBIN 7.4 GM/dL (10.7-15.3); MCH 31.9 pg (25.7-33.7); MCHC 33.4 g/dl (32.0-36.0); MEAN CELL VOLUME 95.7 fl (80-96); MEAN PLT VOLUME 8.2 fl (7.5-11.1); MONO % 6.9 % (3.8-10.2); PLATELET COUNT 337 10^3/uL (134-434); RBC 2.33 M/mm3 (3.60-5.2); RDW 16.3 % (11.6-15.6); WHITE BLOOD COUNT 9.1 K/mm3 (4.0-10.0)
[2022-09-19 08:11] LABS: BLOOD UREA NITROGEN 26.7 mg/dL (7-18); CALCIUM 8.3 mg/dL (8.5-10.1); MAGNESIUM 1.8 mg/dL (1.8-2.4)
[2022-09-19 08:12] LABS: ALBUMIN 1.5 g/dl (3.4-5.0)
[2022-09-19 08:14] LABS: CREATININE 0.5 mg/dL (0.55-1.3); PHOSPHOROUS 2.2 mg/dL (2.5-4.9)
[2022-09-19 08:16] LABS: BILIRUBIN,TOTAL 0.4 mg/dL (0.2-1); TOT PROT 5.1 g/dl (6.4-8.2)
[2022-09-19] MEDS: HYDROCORTISONE SOD SUCCINATE 100 MG/2 ML VIAL IVPB SCH (09:54)
[2022-09-19] MEDS: LACTOBACILLUS ACIDOPHILUS 1 TABLET PO SCH (09:55)
[2022-09-19] MEDS: SERTRALINE HCL 50 MG TABLET (FP) PO SCH (09:55)
[2022-09-19] MEDS: ASPIRIN 81 MG CHEWABLE TABLETS PO SCH (09:55)
[2022-09-19] MEDS: PANTOPRAZOLE SODIUM 40 MG VIAL IVPUSH SCH (09:55)
[2022-09-19] MEDS: AMINO ACIDS/PROTEIN HYDROLYS 30 ML LIQUID.PKT PO SCH ×3 (09:56→21:04)
[2022-09-19] MEDS: COLLAGENASE CLOSTRIDIUM HIST. 30 GRAMS TUBE TP SCH ×2 (09:57→21:04)
[2022-09-19] MEDS: MULTIVIT-MINERALS ORAL LIQUID PO SCH (09:57)
[2022-09-19] MEDS ORDERED: ALBUMIN HUMAN 25% 12.5 GM/50 ML VIAL IV SCH (10:15)
[2022-09-19] MEDS: NOREPINEPHRINE BITARTRATE 16,000 MCG in DEXTROSE 5%-WATER - 500 ML IVPB SCH (10:18)
[2022-09-19] MEDS: KCL 10 MEQ IVPB 10 MEQ/100 ML INFUS.BAG IVPB SCH ×6 (10:18→23:00)
[2022-09-19] MEDS ORDERED: POTASSIUM CHLORIDE 20 MEQ PREMIX IVPB 100 ML IVPB STA (10:28)
[2022-09-19] MEDS ORDERED: FUROSEMIDE 40 MG/4 ML INJECTABLE VIAL IVPUSH ONE (10:30)
[2022-09-19] MEDS: DIVALPROEX SODIUM 125 MG SPRINKLE CAPS PO SCH ×2 (13:07→21:03)
[2022-09-19] MEDS: ALBUMIN HUMAN 25% 12.5 GM/50 ML VIAL IV SCH ×2 (13:25→13:34)
[2022-09-19 19:28] LABS: CHLORIDE 119 mmol/L (98-107); SODIUM 152 mmol/L (136-145)
[2022-09-19 19:29] LABS: CALCIUM 8.3 mg/dL (8.5-10.1); CO2 24 mmol/L (21-32)
[2022-09-19 19:30] LABS: BLOOD UREA NITROGEN 29.1 mg/dL (7-18); GLUCOSE,RANDOM 145 mg/dL (74-106); MAGNESIUM 1.8 mg/dL (1.8-2.4)
[2022-09-19 19:33] LABS: CREATININE 0.6 mg/dL (0.55-1.3); PHOSPHOROUS 2.2 mg/dL (2.5-4.9)
[2022-09-19 19:35] LABS: ANION GAP 9 MMOL/L (8-16)
[2022-09-19] MEDS: ATORVASTATIN CA 20 MG TABLET (FP) PO SCH (21:03)
[2022-09-19] MEDS: CHLORHEXIDINE GLUCONATE 4% CLEANSER FOR DECOLONIZATION TP SCH (21:04)
[2022-09-20] MEDS: DIVALPROEX SODIUM 125 MG SPRINKLE CAPS PO SCH ×3 (05:28→22:16)
[2022-09-20] MEDS: AMINO ACIDS/PROTEIN HYDROLYS 30 ML LIQUID.PKT PO SCH ×3 (05:28→22:17)
[2022-09-20] MEDS: MIDODRINE HCL 5 MG TABLET PO SCH ×3 (05:33→22:16)
[2022-09-20 07:48] LABS: BASO % 0.2 % (0-2.0); EOS % 0.4 % (0-4.5); HEMATOCRIT 21.5 % (32.4-45.2); LYMPH % 21.1 % (8-40); MCH 31.2 pg (25.7-33.7); MCHC 32.4 g/dl (32.0-36.0); MEAN CELL VOLUME 96.2 fl (80-96); MEAN PLT VOLUME 8.4 fl (7.5-11.1); MONO % 6.4 % (3.8-10.2); NEUT % 71.9 % (42.8-82.8); PLATELET COUNT 358 10^3/uL (134-434); RBC 2.24 M/mm3 (3.60-5.2); RDW 16.1 % (11.6-15.6); WHITE BLOOD COUNT 12.3 K/mm3 (4.0-10.0)
[2022-09-20 07:49] LABS: CHLORIDE 120 mmol/L (98-107); SODIUM 150 mmol/L (136-145)
[2022-09-20 07:53] LABS: BLOOD UREA NITROGEN 32.9 mg/dL (7-18); CALCIUM 8.5 mg/dL (8.5-10.1); CO2 27 mmol/L (21-32); GLUCOSE,RANDOM 84 mg/dL (74-106)
[2022-09-20 07:54] LABS: MAGNESIUM 1.7 mg/dL (1.8-2.4)
[2022-09-20 07:56] LABS: SGPT/ALT 16 U/L (13-61)
[2022-09-20 07:57] LABS: CREATININE 0.6 mg/dL (0.55-1.3); PHOSPHOROUS 2.2 mg/dL (2.5-4.9); SGOT/AST 17 U/L (15-37)
[2022-09-20 07:58] LABS: BILIRUBIN,TOTAL 0.4 mg/dL (0.2-1); TOT PROT 5.2 g/dl (6.4-8.2)
[2022-09-20 07:59] LABS: ALK PHOS 75 U/L (45-117)
[2022-09-20 08:03] LABS: ALBUMIN 2.1 g/dl (3.4-5.0); ANION GAP 3 MMOL/L (8-16)
[2022-09-20] MEDS ORDERED: MAGNESIUM SULF 50% (8.12 MEQ/2 ML-1 GM VIAL) IVPB ONE ×2 (08:52→08:59)
[2022-09-20] MEDS ORDERED: LOPERAMIDE HCL 1 MG/5 ML UNIT DOSE CUP PO SCH (09:15)
[2022-09-20] MEDS ORDERED: POTASSIUM PHOSPHATE 30 MM in DEXTROSE 5%-WATER - 250 ML IVPB ONE (10:00)
[2022-09-20] MEDS ORDERED: HYDROCORTISONE SOD SUCCINATE 100 MG/2 ML VIAL IVPB SCH (10:00)
[2022-09-20] MEDS: ASPIRIN 81 MG CHEWABLE TABLETS PO SCH (10:01)
[2022-09-20] MEDS: LACTOBACILLUS ACIDOPHILUS 1 TABLET PO SCH (10:01)
[2022-09-20] MEDS: PANTOPRAZOLE SODIUM 40 MG VIAL IVPUSH SCH (10:01)
[2022-09-20] MEDS: MULTIVIT-MINERALS ORAL LIQUID PO SCH (10:02)
[2022-09-20] MEDS ORDERED: LOPERAMIDE HCL 1 MG/7.5 ML LIQUID PO SCH (10:06)
[2022-09-20] MEDS: COLLAGENASE CLOSTRIDIUM HIST. 30 GRAMS TUBE TP SCH ×2 (14:00→22:15)
[2022-09-20] MEDS: SERTRALINE HCL 50 MG TABLET (FP) PO SCH (14:59)
[2022-09-20] MEDS: KCL 10 MEQ IVPB 10 MEQ/100 ML INFUS.BAG IVPB SCH ×2 (15:32→16:32)
[2022-09-20] MEDS: POTASSIUM CHLORIDE 20 MEQ in AMINO ACIDS 4.25%/D5W 1,000 ML IV SCH (17:51)
[2022-09-20] MEDS: ATORVASTATIN CA 20 MG TABLET (FP) PO SCH (22:16)
[2022-09-20] MEDS: LOPERAMIDE HCL 1 MG/7.5 ML LIQUID PO SCH (22:17)
[2022-09-21] MEDS: MIDODRINE HCL 5 MG TABLET PO SCH ×3 (06:06→22:00)
[2022-09-21] MEDS: LOPERAMIDE HCL 1 MG/7.5 ML LIQUID PO SCH ×3 (06:06→22:07)
[2022-09-21] MEDS: DIVALPROEX SODIUM 125 MG SPRINKLE CAPS PO SCH ×3 (06:06→22:03)
[2022-09-21] MEDS: AMINO ACIDS/PROTEIN HYDROLYS 30 ML LIQUID.PKT PO SCH ×3 (06:07→22:01)
[2022-09-21 07:17] LABS: BASO % 0.1 % (0-2.0); EOS % 0.5 % (0-4.5); HEMATOCRIT 23.3 % (32.4-45.2); HEMOGLOBIN 7.5 GM/dL (10.7-15.3); MCH 31.1 pg (25.7-33.7); MCHC 32.2 g/dl (32.0-36.0); MEAN CELL VOLUME 96.6 fl (80-96); MEAN PLT VOLUME 8.6 fl (7.5-11.1); MONO % 4.7 % (3.8-10.2); NEUT % 78.7 % (42.8-82.8); PLATELET COUNT 361 10^3/uL (134-434); RBC 2.41 M/mm3 (3.60-5.2); RDW 16.5 % (11.6-15.6); WHITE BLOOD COUNT 14.3 K/mm3 (4.0-10.0)
[2022-09-21 08:00] LABS: CALCIUM 8.3 mg/dL (8.5-10.1)
[2022-09-21 08:01] LABS: BLOOD UREA NITROGEN 34.2 mg/dL (7-18); MAGNESIUM 2.3 mg/dL (1.8-2.4)
[2022-09-21 08:04] LABS: CREATININE 0.6 mg/dL (0.55-1.3)
[2022-09-21 08:05] LABS: BILIRUBIN,TOTAL 0.6 mg/dL (0.2-1)
[2022-09-21 08:06] LABS: TOT PROT 5.3 g/dl (6.4-8.2)
[2022-09-21] MEDS: MULTIVIT-MINERALS ORAL LIQUID PO SCH (09:30)
[2022-09-21] MEDS: ASPIRIN 81 MG CHEWABLE TABLETS PO SCH (09:31)
[2022-09-21] MEDS: LACTOBACILLUS ACIDOPHILUS 1 TABLET PO SCH (09:31)
[2022-09-21] MEDS: SERTRALINE HCL 50 MG TABLET (FP) PO SCH (09:31)
[2022-09-21] MEDS: PANTOPRAZOLE SODIUM 40 MG VIAL IVPUSH SCH (09:34)
[2022-09-21] MEDS: HYDROCORTISONE SOD SUCCINATE 100 MG/2 ML VIAL IVPB SCH (09:35)
[2022-09-21] MEDS: COLLAGENASE CLOSTRIDIUM HIST. 30 GRAMS TUBE TP SCH ×2 (09:35→22:06)
[2022-09-21] MEDS: POTASSIUM CHLORIDE 20 MEQ in AMINO ACIDS 4.25%/D5W 1,000 ML IV SCH ×2 (16:03→18:11)
[2022-09-21] MEDS: ATORVASTATIN CA 20 MG TABLET (FP) PO SCH (22:02)
[2022-09-22] MEDS: DIVALPROEX SODIUM 125 MG SPRINKLE CAPS PO SCH ×2 (06:13→15:33)
[2022-09-22] MEDS: POTASSIUM CHLORIDE 20 MEQ in AMINO ACIDS 4.25%/D5W 1,000 ML IV SCH (06:13)
[2022-09-22] MEDS: MIDODRINE HCL 5 MG TABLET PO SCH ×3 (06:14→19:00)
[2022-09-22] MEDS: LOPERAMIDE HCL 1 MG/7.5 ML LIQUID PO SCH ×2 (06:14→14:47)
[2022-09-22] MEDS: AMINO ACIDS/PROTEIN HYDROLYS 30 ML LIQUID.PKT PO SCH ×2 (06:15→14:47)
[2022-09-22] MEDS: MULTIVIT-MINERALS ORAL LIQUID PO SCH (10:07)
[2022-09-22] MEDS: LACTOBACILLUS ACIDOPHILUS 1 TABLET PO SCH (10:08)
[2022-09-22] MEDS: ASPIRIN 81 MG CHEWABLE TABLETS PO SCH (10:08)
[2022-09-22] MEDS: SERTRALINE HCL 50 MG TABLET (FP) PO SCH (10:08)
[2022-09-22] MEDS: HYDROCORTISONE SOD SUCCINATE 100 MG/2 ML VIAL IVPB SCH (10:08)
[2022-09-22] MEDS: PANTOPRAZOLE SODIUM 40 MG VIAL IVPUSH SCH (10:08)
[2022-09-22] MEDS: COLLAGENASE CLOSTRIDIUM HIST. 30 GRAMS TUBE TP SCH (10:09)
[2022-09-23] MEDS: DIVALPROEX SODIUM 125 MG SPRINKLE CAPS PO SCH ×4 (00:26→22:50)
[2022-09-23] MEDS: ATORVASTATIN CA 20 MG TABLET (FP) PO SCH ×2 (00:26→22:50)
[2022-09-23] MEDS: LOPERAMIDE HCL 1 MG/7.5 ML LIQUID PO SCH ×3 (00:35→14:06)
[2022-09-23] MEDS: AMINO ACIDS/PROTEIN HYDROLYS 30 ML LIQUID.PKT PO SCH ×4 (00:36→22:50)
[2022-09-23] MEDS: COLLAGENASE CLOSTRIDIUM HIST. 30 GRAMS TUBE TP SCH ×2 (00:49→18:23)
[2022-09-23 09:56] LABS: BASO % 1.1 % (0-2.0); EOS % 0.8 % (0-4.5); HEMATOCRIT 28.5 % (32.4-45.2); LYMPH % 22.2 % (8-40); MCH 31.1 pg (25.7-33.7); MCHC 31.7 g/dl (32.0-36.0); MEAN CELL VOLUME 98.1 fl (80-96); MEAN PLT VOLUME 9.3 fl (7.5-11.1); MONO % 3.3 % (3.8-10.2); NEUT % 72.6 % (42.8-82.8); PLATELET COUNT 353 10^3/uL (134-434); WHITE BLOOD COUNT 12.6 K/mm3 (4.0-10.0)
[2022-09-23] MEDS: ASPIRIN 81 MG CHEWABLE TABLETS PO SCH (10:17)
[2022-09-23] MEDS: LACTOBACILLUS ACIDOPHILUS 1 TABLET PO SCH (10:17)
[2022-09-23] MEDS: SERTRALINE HCL 50 MG TABLET (FP) PO SCH (10:17)
[2022-09-23] MEDS: MIDODRINE HCL 5 MG TABLET PO SCH ×3 (10:17→18:24)
[2022-09-23] MEDS: MULTIVIT-MINERALS ORAL LIQUID PO SCH (10:18)
[2022-09-23 10:25] LABS: ALBUMIN 2.2 g/dl (3.4-5.0)
[2022-09-23 10:26] LABS: CALCIUM 8.9 mg/dL (8.5-10.1)
[2022-09-23 10:27] LABS: BLOOD UREA NITROGEN 44.8 mg/dL (7-18)
[2022-09-23 10:29] LABS: TOT PROT 6.2 g/dl (6.4-8.2)
[2022-09-23 10:32] LABS: CREATININE 0.6 mg/dL (0.55-1.3)
[2022-09-23 10:39] LABS: BILIRUBIN,TOTAL 0.3 mg/dL (0.2-1)
[2022-09-23] MEDS ORDERED: SENNOSIDES 8.6MG TABLET (FP) PO PRN (11:12)
[2022-09-24] MEDS: COLLAGENASE CLOSTRIDIUM HIST. 30 GRAMS TUBE TP SCH ×3 (06:52→23:28)
[2022-09-24] MEDS: AMINO ACIDS/PROTEIN HYDROLYS 30 ML LIQUID.PKT PO SCH ×3 (06:54→23:26)
[2022-09-24] MEDS: DIVALPROEX SODIUM 125 MG SPRINKLE CAPS PO SCH ×3 (06:54→23:28)
[2022-09-24] MEDS ORDERED: ASCORBIC ACID 500 MG TABLET (FP) PO SCH (10:00)
[2022-09-24] MEDS ORDERED: MULTIVITAMINS THER W-MINERALS COMBO TABLET (FP) PO SCH (10:00)
[2022-09-24] MEDS: SERTRALINE HCL 50 MG TABLET (FP) PO SCH (10:33)
[2022-09-24] MEDS: MIDODRINE HCL 5 MG TABLET PO SCH ×3 (10:34→17:44)
[2022-09-24] MEDS: ASPIRIN 81 MG CHEWABLE TABLETS PO SCH (10:34)
[2022-09-24] MEDS: LACTOBACILLUS ACIDOPHILUS 1 TABLET PO SCH (10:34)
[2022-09-24] MEDS: HEPARIN NA (PORCINE) 5,000 UNITS/ML 1ML VIAL SQ SCH (23:27)
[2022-09-24] MEDS: ATORVASTATIN CA 20 MG TABLET (FP) PO SCH (23:27)
[2022-09-25] MEDS ORDERED: SENNOSIDES 8.6MG TABLET (FP) PO PRN (02:15)
[2022-09-25] MEDS: DIVALPROEX SODIUM 125 MG SPRINKLE CAPS PO SCH ×3 (07:02→22:12)
[2022-09-25] MEDS: AMINO ACIDS/PROTEIN HYDROLYS 30 ML LIQUID.PKT PO SCH ×3 (07:02→22:13)
[2022-09-25 09:39] LABS: BASO % 0.2 % (0-2.0); EOS % 2.5 % (0-4.5); HEMOGLOBIN 7.1 GM/dL (10.7-15.3); LYMPH % 18.7 % (8-40); MCH 31.9 pg (25.7-33.7); MCHC 32.3 g/dl (32.0-36.0); MEAN CELL VOLUME 98.9 fl (80-96); MEAN PLT VOLUME 9.1 fl (7.5-11.1); MONO % 5.3 % (3.8-10.2); NEUT % 73.3 % (42.8-82.8); PLATELET COUNT 233 10^3/uL (134-434); RBC 2.23 M/mm3 (3.60-5.2); RDW 20.7 % (11.6-15.6); WHITE BLOOD COUNT 8.6 K/mm3 (4.0-10.0)
[2022-09-25] MEDS: SERTRALINE HCL 50 MG TABLET (FP) PO SCH (10:11)
[2022-09-25] MEDS: ASCORBIC ACID 500 MG TABLET (FP) PO SCH (10:11)
[2022-09-25 10:12] LABS: CALCIUM 8.3 mg/dL (8.5-10.1)
[2022-09-25] MEDS: LACTOBACILLUS ACIDOPHILUS 1 TABLET PO SCH (10:12)
[2022-09-25] MEDS: ASPIRIN 81 MG CHEWABLE TABLETS PO SCH (10:12)
[2022-09-25] MEDS: HEPARIN NA (PORCINE) 5,000 UNITS/ML 1ML VIAL SQ SCH ×2 (10:12→22:12)
[2022-09-25 10:14] LABS: BLOOD UREA NITROGEN 35.1 mg/dL (7-18)
[2022-09-25] MEDS: COLLAGENASE CLOSTRIDIUM HIST. 30 GRAMS TUBE TP SCH ×2 (10:15→22:13)
[2022-09-25 10:16] LABS: CREATININE 0.5 mg/dL (0.55-1.3)
[2022-09-25] MEDS: MULTIVITAMINS THER W-MINERALS COMBO TABLET (FP) PO SCH (10:16)
[2022-09-25 10:17] LABS: ANISOCYTOSIS 2+; MACROCYTOSIS 0; OVALOCYTE 1+
[2022-09-25 10:18] LABS: BILIRUBIN,TOTAL 0.3 mg/dL (0.2-1)
[2022-09-25 10:21] LABS: ALBUMIN 1.6 g/dl (3.4-5.0)
[2022-09-25] MEDS: MIDODRINE HCL 5 MG TABLET PO SCH ×3 (12:06→18:52)
[2022-09-25] MEDS ORDERED: POTASSIUM CHLORIDE ORAL LIQUID 20 MEQ/15 ML PO ONE (12:07)
[2022-09-25] MEDS: DEXTROSE 5%-WATER - 1,000 ML IV SCH (17:41)
[2022-09-25] MEDS: ATORVASTATIN CA 20 MG TABLET (FP) PO SCH (22:12)
[2022-09-26] MEDS: AMINO ACIDS/PROTEIN HYDROLYS 30 ML LIQUID.PKT PO SCH ×3 (06:30→22:30)
[2022-09-26] MEDS: DIVALPROEX SODIUM 125 MG SPRINKLE CAPS PO SCH ×3 (06:30→22:30)
[2022-09-26] MEDS: MULTIVITAMINS THER W-MINERALS COMBO TABLET (FP) PO SCH (09:21)
[2022-09-26] MEDS: HEPARIN NA (PORCINE) 5,000 UNITS/ML 1ML VIAL SQ SCH ×2 (09:22→22:14)
[2022-09-26] MEDS: LACTOBACILLUS ACIDOPHILUS 1 TABLET PO SCH (09:22)
[2022-09-26] MEDS: ASPIRIN 81 MG CHEWABLE TABLETS PO SCH (09:22)
[2022-09-26] MEDS: SERTRALINE HCL 50 MG TABLET (FP) PO SCH (09:22)
[2022-09-26] MEDS: MIDODRINE HCL 5 MG TABLET PO SCH ×3 (09:22→18:58)
[2022-09-26] MEDS: ASCORBIC ACID 500 MG TABLET (FP) PO SCH (09:22)
[2022-09-26] MEDS: COLLAGENASE CLOSTRIDIUM HIST. 30 GRAMS TUBE TP SCH ×2 (09:24→22:15)
[2022-09-26 09:35] LABS: BASO % 0.3 % (0-2.0); EOS % 2.3 % (0-4.5); HEMATOCRIT 22.8 % (32.4-45.2); HEMOGLOBIN 7.4 GM/dL (10.7-15.3); LYMPH % 17.6 % (8-40); MCH 31.8 pg (25.7-33.7); MCHC 32.4 g/dl (32.0-36.0); MEAN PLT VOLUME 9.8 fl (7.5-11.1); MONO % 6.6 % (3.8-10.2); NEUT % 73.2 % (42.8-82.8); PLATELET COUNT 222 10^3/uL (134-434); RBC 2.32 M/mm3 (3.60-5.2); RDW 21.6 % (11.6-15.6); WHITE BLOOD COUNT 8.6 K/mm3 (4.0-10.0)
[2022-09-26 10:34] LABS: ALBUMIN 1.6 g/dl (3.4-5.0); CALCIUM 8.3 mg/dL (8.5-10.1)
[2022-09-26 10:35] LABS: BLOOD UREA NITROGEN 35.8 mg/dL (7-18); MAGNESIUM 1.9 mg/dL (1.8-2.4)
[2022-09-26 10:36] LABS: CREATININE 0.5 mg/dL (0.55-1.3); PHOSPHOROUS 3.7 mg/dL (2.5-4.9)
[2022-09-26 10:38] LABS: BILIRUBIN,TOTAL 0.5 mg/dL (0.2-1); TOT PROT 5.2 g/dl (6.4-8.2)
[2022-09-26] MEDS: POTASSIUM CHLORIDE ORAL LIQUID 20 MEQ/15 ML PO ONE ×2 (12:49→13:41)
[2022-09-26] MEDS: DEXTROSE 5%-WATER - 1,000 ML IV SCH (13:41)
[2022-09-26] MEDS: ATORVASTATIN CA 20 MG TABLET (FP) PO SCH (22:30)
[2022-09-27] MEDS ORDERED: MIDAZOLAM HCL 2 MG/2 ML SINGLE DOSE VIAL IVPUSH ONE (05:10)
[2022-09-27] MEDS ORDERED: KETAMINE HCL 200 MG/20 ML VIAL IVPUSH ONE (05:10)
[2022-09-27] MEDS ORDERED: ROCURONIUM BROMIDE 50 MG/5 ML VIAL IV ONE (05:11)
[2022-09-27] MEDS: NOREPINEPHRINE BITARTRATE/D5W 8 MG/250 ML BAG IVPB SCH ×2 (05:11→15:46)
[2022-09-27] MEDS ORDERED: DEXTROSE 5%-0.45% SALINE 1,000 ML IV SCH (05:15)
[2022-09-27 07:00] LABS: ARTERIAL BLD GAS O2 SATURATION 99.6 % (95-98); ARTERIAL BLOOD GAS BASE EXCESS -5.5 mmol/L (-2-2); ARTERIAL BLOOD GAS PO2 283.9 mmHg (80-100); ARTERIAL BLOOD GAS pH 7.321 (7.350-7.450)
[2022-09-27] MEDS: CEFEPIME 2 GM in DEXTROSE 5%-WATER 100 ML IVPB SCH ×3 (07:01→17:13)
[2022-09-27] MEDS: PROPOFOL 1,000,000 MCG/100 ML VIAL IVPB SCH (07:01)
[2022-09-27 07:03] LABS: ALLENS TEST POSITIVE; VENT MODE A/C
[2022-09-27 07:04] LABS: VENT RATE 18
[2022-09-27 07:32] LABS: BASO % 0.2 % (0-2.0); EOS % 0.1 % (0-4.5); HEMATOCRIT 23.5 % (32.4-45.2); HEMOGLOBIN 7.5 GM/dL (10.7-15.3); LYMPH % 8.7 % (8-40); MCH 31.9 pg (25.7-33.7); MEAN CELL VOLUME 99.6 fl (80-96); MEAN PLT VOLUME 10.3 fl (7.5-11.1); MONO % 6.1 % (3.8-10.2); NEUT % 84.9 % (42.8-82.8); PLATELET COUNT 196 10^3/uL (134-434); RBC 2.36 M/mm3 (3.60-5.2); RDW 21.2 % (11.6-15.6); WHITE BLOOD COUNT 9.6 K/mm3 (4.0-10.0)
[2022-09-27 07:56] LABS: LACTIC ACID 2.8 mmol/L (0.4-2.0)
[2022-09-27] MEDS: DIVALPROEX SODIUM 125 MG SPRINKLE CAPS PO SCH ×2 (08:05→14:13)
[2022-09-27] MEDS: AMINO ACIDS/PROTEIN HYDROLYS 30 ML LIQUID.PKT PO SCH ×2 (08:06→14:13)
[2022-09-27 08:20] LABS: CHLORIDE 126 mmol/L (98-107); SODIUM 157 mmol/L (136-145)
[2022-09-27 08:26] LABS: CALCIUM 8.4 mg/dL (8.5-10.1)
[2022-09-27 08:28] LABS: ALBUMIN 1.4 g/dl (3.4-5.0); ANION GAP 8 MMOL/L (8-16); CO2 23 mmol/L (21-32); MAGNESIUM 1.9 mg/dL (1.8-2.4)
[2022-09-27 08:30] LABS: SGOT/AST 21 U/L (15-37); SGPT/ALT 9 U/L (13-61)
[2022-09-27 08:31] LABS: BILIRUBIN,TOTAL 0.4 mg/dL (0.2-1); TOT PROT 5.1 g/dl (6.4-8.2)
[2022-09-27 08:33] LABS: ALK PHOS 97 U/L (45-117)
[2022-09-27 08:36] LABS: GLUCOSE,RANDOM 35 mg/dL (74-106)
[2022-09-27] MEDS ORDERED: DEXTROSE 50%-WATER 25 GM/50 ML DISP.SYRIN ONE (08:43)
[2022-09-27] MEDS ORDERED: DEXTROSE 50%-WATER 25 GM/50 ML DISP.SYRIN IVPUSH ONE (08:43)
[2022-09-27] MEDS: ASPIRIN 81 MG CHEWABLE TABLETS PO SCH (09:01)
[2022-09-27] MEDS: SERTRALINE HCL 50 MG TABLET (FP) PO SCH (09:02)
[2022-09-27] MEDS: ASCORBIC ACID 500 MG TABLET (FP) PO SCH (09:02)
[2022-09-27] MEDS: LACTOBACILLUS ACIDOPHILUS 1 TABLET PO SCH (09:02)
[2022-09-27] MEDS: MULTIVITAMINS THER W-MINERALS COMBO TABLET (FP) PO SCH (09:02)
[2022-09-27] MEDS ORDERED: AMINO ACIDS 4.25%/D5W 1,000 ML IV SCH (09:15)
[2022-09-27] MEDS ORDERED: VANCOMYCIN 1 GM/200 ML PREMIX BAG (RESTRICTED TO ID ONLY) IVPB ONE (09:35)
[2022-09-27] MEDS: HEPARIN NA (PORCINE) 5,000 UNITS/ML 1ML VIAL SQ SCH ×2 (10:15→22:12)
[2022-09-27] MEDS: MUPIROCIN 2% TOPICAL OINTMENT FOR DECOLONIZATION NS SCH ×3 (11:48→22:14)
[2022-09-27] MEDS: COLLAGENASE CLOSTRIDIUM HIST. 30 GRAMS TUBE TP SCH ×2 (12:19→22:16)
[2022-09-27 14:21] LABS: LACTIC ACID 3.6 mmol/L (0.4-2.0)
[2022-09-27] MEDS ORDERED: VASOPRESSIN 20 UNITS/ML VIAL IV ONE (14:27)
[2022-09-27] MEDS ORDERED: FLUDROCORTISONE ACETATE 0.1 MG TABLET (FP) PO SCH (14:30)
[2022-09-27] MEDS: VASOPRESSIN 40 UNITS/100 ML BAG IV SCH ×2 (14:39→18:24)
[2022-09-27] MEDS ORDERED: LACTATED RINGERS SOLUTION 1,000 ML/1,000 ML INFUS.BAG IV STA (14:48)
[2022-09-27] MEDS: HYDROCORTISONE SOD SUCCINATE 100 MG/2 ML VIAL IVPUSH SCH ×2 (15:02→22:12)
[2022-09-27] MEDS ORDERED: AMINO ACIDS/PROTEIN HYDROLYS 30 ML LIQUID.PKT GT SCH (15:11)
[2022-09-27] MEDS ORDERED: ASCORBIC ACID 500 MG TABLET (FP) GT SCH (15:11)
[2022-09-27] MEDS: FOLIC ACID 1 MG TABLET (FP) GT SCH (15:22)
[2022-09-27] MEDS: PANTOPRAZOLE SODIUM 40 MG VIAL IVPUSH SCH (15:22)
[2022-09-27 15:44] LABS: CALCIUM 8.1 mg/dL (8.5-10.1)
[2022-09-27 15:45] LABS: BLOOD UREA NITROGEN 48.8 mg/dL (7-18)
[2022-09-27 15:48] LABS: CREATININE 1.3 mg/dL (0.55-1.3)
[2022-09-27] MEDS: KCL 10 MEQ IVPB 10 MEQ/100 ML INFUS.BAG IVPB SCH ×3 (16:20→20:01)
[2022-09-27] MEDS: AMINO ACIDS/PROTEIN HYDROLYS 30 ML LIQUID.PKT GT SCH (17:13)
[2022-09-27] MEDS: POTASSIUM CHLORIDE 10 MEQ in AMINO ACIDS 4.25%/D5W 1,000 ML IV SCH (17:21)
[2022-09-27] MEDS ORDERED: SENNOSIDES 8.6MG TABLET (FP) PO PRN (19:21)
[2022-09-27] MEDS ORDERED: SENNOSIDES 8.8 MG/5 ML SYRUP GT PRN (19:33)
[2022-09-27] MEDS ORDERED: DIVALPROEX SODIUM 125 MG SPRINKLE CAPS PO SCH (22:00)
[2022-09-27] MEDS ORDERED: CHLORHEXIDINE GLUCONATE 4% CLEANSER FOR DECOLONIZATION TP SCH (22:00)
[2022-09-27] MEDS: ATORVASTATIN CA 20 MG TABLET (FP) GT SCH (22:12)
[2022-09-27] MEDS: VALPROATE SODIUM 250 MG/5 ML UNIT DOSE CUP GT SCH (22:14)
[2022-09-27 22:22] LABS: CALCIUM 7.7 mg/dL (8.5-10.1)
[2022-09-27 22:26] LABS: CREATININE 1.2 mg/dL (0.55-1.3)
[2022-09-27 23:09] LABS: LACTIC ACID 3.1 mmol/L (0.4-2.0)
[2022-09-28] MEDS: CEFEPIME 2 GM in DEXTROSE 5%-WATER 100 ML IVPB SCH ×3 (01:22→17:08)
[2022-09-28] MEDS: NOREPINEPHRINE BITARTRATE/D5W 8 MG/250 ML BAG IVPB SCH ×3 (01:23→14:28)
[2022-09-28] MEDS: HYDROCORTISONE SOD SUCCINATE 100 MG/2 ML VIAL IVPUSH SCH ×3 (05:44→21:55)
[2022-09-28] MEDS: VALPROATE SODIUM 250 MG/5 ML UNIT DOSE CUP GT SCH ×3 (05:44→21:55)
[2022-09-28] MEDS: POTASSIUM CHLORIDE 10 MEQ in AMINO ACIDS 4.25%/D5W 1,000 ML IV SCH (05:44)
[2022-09-28] MEDS: PROPOFOL 1,000,000 MCG/100 ML VIAL IVPB SCH (07:26)
[2022-09-28] MEDS: AMINO ACIDS/PROTEIN HYDROLYS 30 ML LIQUID.PKT GT SCH ×2 (07:26→17:08)
[2022-09-28] MEDS ORDERED: DEXTROSE 50%-WATER - 25 GM/50 ML VIAL IVPUSH PRN (07:38)
[2022-09-28 08:37] LABS: HEMATOCRIT 20.8 % (32.4-45.2); MCH 31.8 pg (25.7-33.7); MCHC 31.6 g/dl (32.0-36.0); MEAN CELL VOLUME 100.5 fl (80-96); MEAN PLT VOLUME 9.8 fl (7.5-11.1); PLATELET COUNT 173 10^3/uL (134-434); RBC 2.06 M/mm3 (3.60-5.2); RDW 21.7 % (11.6-15.6); WHITE BLOOD COUNT 17.1 K/mm3 (4.0-10.0)
[2022-09-28 08:53] LABS: CALCIUM 7.8 mg/dL (8.5-10.1)
[2022-09-28 08:54] LABS: ALBUMIN 1.2 g/dl (3.4-5.0); BLOOD UREA NITROGEN 53.3 mg/dL (7-18); MAGNESIUM 1.5 mg/dL (1.8-2.4)
[2022-09-28 08:56] LABS: PHOSPHOROUS 2.4 mg/dL (2.5-4.9)
[2022-09-28 08:57] LABS: CREATININE 1.1 mg/dL (0.55-1.3)
[2022-09-28 08:58] LABS: BILIRUBIN,TOTAL 0.3 mg/dL (0.2-1); HEMOGLOBIN 6.6 GM/dL (10.7-15.3); TOT PROT 4.8 g/dl (6.4-8.2)
[2022-09-28] MEDS ORDERED: MAGNESIUM SULF 50% (8.12 MEQ/2 ML-1 GM VIAL) IVPB ONE (09:02)
[2022-09-28] MEDS: CHLORHEXIDINE GLUCONATE 0.12% 15ML CUP MM SCH ×2 (09:08→21:55)
[2022-09-28] MEDS: PANTOPRAZOLE SODIUM 40 MG VIAL IVPUSH SCH ×3 (09:08→21:55)
[2022-09-28] MEDS: SERTRALINE HCL 50 MG TABLET (FP) GT SCH (09:09)
[2022-09-28] MEDS: LACTOBACILLUS ACIDOPHILUS 1 TABLET GT SCH (09:09)
[2022-09-28] MEDS: HEPARIN NA (PORCINE) 5,000 UNITS/ML 1ML VIAL SQ SCH (09:09)
[2022-09-28] MEDS: FLUDROCORTISONE ACETATE 0.1 MG TABLET (FP) GT SCH (09:09)
[2022-09-28] MEDS: COLLAGENASE CLOSTRIDIUM HIST. 30 GRAMS TUBE TP SCH ×2 (09:10→21:55)
[2022-09-28] MEDS: MUPIROCIN 2% TOPICAL OINTMENT FOR DECOLONIZATION NS SCH ×2 (09:10→21:55)
[2022-09-28] MEDS: ASCORBIC ACID 500 MG/5 ML UNIT DOSE CUP GT SCH (09:10)
[2022-09-28] MEDS: FOLIC ACID 1 MG TABLET (FP) GT SCH (09:10)
[2022-09-28] MEDS: MULTIVIT-MINERALS ORAL LIQUID GT SCH (09:10)
[2022-09-28] MEDS: INSULIN (LEVEMIR) 100 UNITS/ML UNITS SQ SCH ×2 (09:11→21:56)
[2022-09-28] MEDS ORDERED: POTASSIUM PHOSPHATE 30 MM in SODIUM CHLORIDE 250 ML IVPB ONE (09:30)
[2022-09-28 09:48] LABS: ANISOCYTOSIS 1+; MACROCYTOSIS 1+
[2022-09-28] MEDS ORDERED: ASPIRIN 81 MG CHEWABLE TABLETS GT SCH (10:00)
[2022-09-28] MEDS ORDERED: MULTIVITAMINS THER W-MINERALS COMBO TABLET (FP) PO SCH (10:00)
[2022-09-28 11:37] LABS: LACTIC ACID 2.8 mmol/L (0.4-2.0)
[2022-09-28] MEDS: INSULIN SLIDING SCALE (NOVOLOG) 1 VIAL SQ SCH ×2 (11:38→16:11)
[2022-09-28] MEDS ORDERED: PANTOPRAZOLE SODIUM 40 MG VIAL IVPUSH SCH (14:00)
[2022-09-28] MEDS: VASOPRESSIN 40 UNITS/100 ML BAG IV SCH (15:21)
[2022-09-28 21:46] LABS: HEMATOCRIT 32.6 % (32.4-45.2); HEMOGLOBIN 10.9 GM/dL (10.7-15.3); MCH 30.7 pg (25.7-33.7); MCHC 33.4 g/dl (32.0-36.0); MEAN CELL VOLUME 92.1 fl (80-96); MEAN PLT VOLUME 9.3 fl (7.5-11.1); PLATELET COUNT 138 10^3/uL (134-434); RBC 3.54 M/mm3 (3.60-5.2); RDW 17.3 % (11.6-15.6)
[2022-09-28] MEDS: ATORVASTATIN CA 20 MG TABLET (FP) GT SCH (21:55)
[2022-09-29] MEDS: CEFEPIME 2 GM in DEXTROSE 5%-WATER 100 ML IVPB SCH ×3 (01:09→18:00)
[2022-09-29] MEDS: VALPROATE SODIUM 250 MG/5 ML UNIT DOSE CUP GT SCH ×3 (06:02→21:16)
[2022-09-29] MEDS: HYDROCORTISONE SOD SUCCINATE 100 MG/2 ML VIAL IVPUSH SCH ×3 (06:02→21:18)
[2022-09-29] MEDS: PROPOFOL 1,000,000 MCG/100 ML VIAL IVPB SCH (06:02)
[2022-09-29] MEDS: NOREPINEPHRINE BITARTRATE/D5W 8 MG/250 ML BAG IVPB SCH ×2 (06:02→08:50)
[2022-09-29] MEDS: INSULIN SLIDING SCALE (NOVOLOG) 1 VIAL SQ SCH ×3 (06:23→16:39)
[2022-09-29 07:12] LABS: HEMATOCRIT 30.9 % (32.4-45.2); HEMOGLOBIN 10.4 GM/dL (10.7-15.3); MCH 30.4 pg (25.7-33.7); MCHC 33.5 g/dl (32.0-36.0); MEAN CELL VOLUME 90.9 fl (80-96); PLATELET COUNT 116 10^3/uL (134-434); RDW 17.9 % (11.6-15.6)
[2022-09-29 07:26] LABS: CHLORIDE 115 mmol/L (98-107); SODIUM 144 mmol/L (136-145)
[2022-09-29 07:28] LABS: CALCIUM 7.6 mg/dL (8.5-10.1)
[2022-09-29 07:29] LABS: ALBUMIN 1.3 g/dl (3.4-5.0); BLOOD UREA NITROGEN 54.8 mg/dL (7-18); CO2 19 mmol/L (21-32); GLUCOSE,RANDOM 168 mg/dL (74-106); MAGNESIUM 1.7 mg/dL (1.8-2.4)
[2022-09-29 07:32] LABS: SGOT/AST 18 U/L (15-37)
[2022-09-29 07:33] LABS: BILIRUBIN,TOTAL 0.4 mg/dL (0.2-1)
[2022-09-29 07:35] LABS: ALK PHOS 97 U/L (45-117); SGPT/ALT 9 U/L (13-61)
[2022-09-29 07:36] LABS: ANION GAP 11 MMOL/L (8-16)
[2022-09-29] MEDS ORDERED: MAGNESIUM 2GM/50ML STERILE WATER IVPB IVPB ONE (08:15)
[2022-09-29] MEDS: POTASSIUM CHLORIDE 20 MEQ PREMIX IVPB 100 ML IVPB SCH ×2 (08:45→09:45)
[2022-09-29 08:47] LABS: ANISOCYTOSIS 0; HELMET CELLS 0; HOWELL-JOLLY BODIES 0; MACROCYTOSIS 0; OVALOCYTE 0; ROULEAU 0; SICKELED CELLS 0; TARGET CELLS 0; TEAR DROP CELLS 0; TOXIC GRANULATION 0
[2022-09-29] MEDS: CHLORHEXIDINE GLUCONATE 0.12% 15ML CUP MM SCH ×2 (09:37→21:18)
[2022-09-29] MEDS: PANTOPRAZOLE SODIUM 40 MG VIAL IVPUSH SCH ×2 (09:37→21:25)
[2022-09-29] MEDS: POTASSIUM CHLORIDE ORAL LIQUID 20 MEQ/15 ML PO SCH ×2 (09:37→21:18)
[2022-09-29] MEDS: FOLIC ACID 1 MG TABLET (FP) GT SCH (09:37)
[2022-09-29] MEDS: AMINO ACIDS/PROTEIN HYDROLYS 30 ML LIQUID.PKT GT SCH ×2 (09:38→16:41)
[2022-09-29] MEDS: FLUDROCORTISONE ACETATE 0.1 MG TABLET (FP) GT SCH (09:39)
[2022-09-29] MEDS: LACTOBACILLUS ACIDOPHILUS 1 TABLET GT SCH (09:39)
[2022-09-29] MEDS: SERTRALINE HCL 50 MG TABLET (FP) GT SCH (09:39)
[2022-09-29] MEDS: COLLAGENASE CLOSTRIDIUM HIST. 30 GRAMS TUBE TP SCH ×2 (10:00→21:18)
[2022-09-29] MEDS: ASCORBIC ACID 500 MG/5 ML UNIT DOSE CUP GT SCH (10:00)
[2022-09-29] MEDS: MUPIROCIN 2% TOPICAL OINTMENT FOR DECOLONIZATION NS SCH ×2 (10:00→21:16)
[2022-09-29] MEDS: INSULIN (LEVEMIR) 100 UNITS/ML UNITS SQ SCH ×2 (11:00→21:17)
[2022-09-29] MEDS: MULTIVIT-MINERALS ORAL LIQUID GT SCH (11:41)
[2022-09-29] MEDS: VANCOMYCIN/WATER 1250 MG 1,250 MG/250 ML BAG IVPB SCH (12:42)
[2022-09-29] MEDS ORDERED: HEPARIN NA (PORCINE) 5,000 UNITS/ML 1ML VIAL SQ SCH (14:00)
[2022-09-29] MEDS: HEPARIN NA (PORCINE) 5,000 UNITS/ML 1ML VIAL SQ SCH ×2 (14:33→21:17)
[2022-09-29] MEDS: VASOPRESSIN 40 UNITS/100 ML BAG IV SCH (14:34)
[2022-09-29 15:15] LABS: HEMATOCRIT 31.1 % (32.4-45.2); HEMOGLOBIN 10.3 GM/dL (10.7-15.3); MCH 29.9 pg (25.7-33.7); MCHC 33.1 g/dl (32.0-36.0); MEAN CELL VOLUME 90.3 fl (80-96); MEAN PLT VOLUME 9.8 fl (7.5-11.1); PLATELET COUNT 105 10^3/uL (134-434); RBC 3.44 M/mm3 (3.60-5.2); RDW 18.6 % (11.6-15.6)
[2022-09-29 18:47] LABS: CALCIUM 7.7 mg/dL (8.5-10.1)
[2022-09-29 18:48] LABS: ALBUMIN 1.3 g/dl (3.4-5.0); BLOOD UREA NITROGEN 55.6 mg/dL (7-18)
[2022-09-29 18:50] LABS: PHOSPHOROUS 3.2 mg/dL (2.5-4.9)
[2022-09-29 18:52] LABS: BILIRUBIN,TOTAL 0.3 mg/dL (0.2-1)
[2022-09-29] MEDS ORDERED: POTASSIUM CHLORIDE ORAL LIQUID 20 MEQ/15 ML PO ONE (19:05)
[2022-09-29] MEDS: ATORVASTATIN CA 20 MG TABLET (FP) GT SCH (21:17)
[2022-09-30] MEDS: CEFEPIME 2 GM in DEXTROSE 5%-WATER 100 ML IVPB SCH ×3 (01:11→18:24)
[2022-09-30] MEDS: VALPROATE SODIUM 250 MG/5 ML UNIT DOSE CUP GT SCH ×3 (05:11→21:23)
[2022-09-30] MEDS: HEPARIN NA (PORCINE) 5,000 UNITS/ML 1ML VIAL SQ SCH ×3 (05:11→21:23)
[2022-09-30] MEDS: HYDROCORTISONE SOD SUCCINATE 100 MG/2 ML VIAL IVPUSH SCH ×3 (05:11→21:24)
[2022-09-30] MEDS: INSULIN SLIDING SCALE (NOVOLOG) 1 VIAL SQ SCH ×3 (06:34→18:25)
[2022-09-30] MEDS: NOREPINEPHRINE BITARTRATE/D5W 8 MG/250 ML BAG IVPB SCH (06:35)
[2022-09-30 07:29] LABS: BASO % 0.2 % (0-2.0); HEMATOCRIT 31.9 % (32.4-45.2); HEMOGLOBIN 10.5 GM/dL (10.7-15.3); LYMPH % 6.5 % (8-40); MCH 30.1 pg (25.7-33.7); MEAN CELL VOLUME 91.2 fl (80-96); MEAN PLT VOLUME 9.8 fl (7.5-11.1); MONO % 2.5 % (3.8-10.2); NEUT % 90.8 % (42.8-82.8); PLATELET COUNT 89 10^3/uL (134-434); RBC 3.49 M/mm3 (3.60-5.2); RDW 19.5 % (11.6-15.6); WHITE BLOOD COUNT 12.9 K/mm3 (4.0-10.0)
[2022-09-30 07:48] LABS: ALBUMIN 1.4 g/dl (3.4-5.0); CALCIUM 7.8 mg/dL (8.5-10.1)
[2022-09-30 07:49] LABS: BLOOD UREA NITROGEN 54.7 mg/dL (7-18); MAGNESIUM 2.3 mg/dL (1.8-2.4)
[2022-09-30 07:52] LABS: CREATININE 1.1 mg/dL (0.55-1.3); PHOSPHOROUS 3.5 mg/dL (2.5-4.9)
[2022-09-30 07:53] LABS: BILIRUBIN,TOTAL 0.3 mg/dL (0.2-1); TOT PROT 5.2 g/dl (6.4-8.2)
[2022-09-30] MEDS: PROPOFOL 1,000,000 MCG/100 ML VIAL IVPB SCH ×2 (09:33)
[2022-09-30] MEDS: AMINO ACIDS/PROTEIN HYDROLYS 30 ML LIQUID.PKT GT SCH ×2 (09:35→18:24)
[2022-09-30] MEDS: PANTOPRAZOLE SODIUM 40 MG VIAL IVPUSH SCH ×2 (09:36→21:23)
[2022-09-30] MEDS: POTASSIUM CHLORIDE ORAL LIQUID 20 MEQ/15 ML PO SCH ×2 (09:38→21:23)
[2022-09-30] MEDS: INSULIN (LEVEMIR) 100 UNITS/ML UNITS SQ SCH ×2 (09:38→21:24)
[2022-09-30] MEDS: CHLORHEXIDINE GLUCONATE 0.12% 15ML CUP MM SCH ×2 (09:38→21:23)
[2022-09-30] MEDS: LACTOBACILLUS ACIDOPHILUS 1 TABLET GT SCH (09:39)
[2022-09-30] MEDS: SERTRALINE HCL 50 MG TABLET (FP) GT SCH (09:39)
[2022-09-30] MEDS: FLUDROCORTISONE ACETATE 0.1 MG TABLET (FP) GT SCH (09:40)
[2022-09-30] MEDS: FOLIC ACID 1 MG TABLET (FP) GT SCH (09:40)
[2022-09-30] MEDS: COLLAGENASE CLOSTRIDIUM HIST. 30 GRAMS TUBE TP SCH ×2 (09:42→21:24)
[2022-09-30] MEDS: MULTIVIT-MINERALS ORAL LIQUID GT SCH (09:42)
[2022-09-30] MEDS: ASCORBIC ACID 500 MG/5 ML UNIT DOSE CUP GT SCH (09:42)
[2022-09-30] MEDS: MUPIROCIN 2% TOPICAL OINTMENT FOR DECOLONIZATION NS SCH ×2 (09:42→21:22)
[2022-09-30 11:35] LABS: INR 1.31 (0.83-1.09); PROTHROMBIN TIME (PATIENT) 15.1 SEC (9.7-13.0)
[2022-09-30 11:38] LABS: ACTIVATED PTT 35.1 SECONDS (25.2-36.5)
[2022-09-30 11:55] LABS: MAGNESIUM 2.3 mg/dL (1.8-2.4)
[2022-09-30 13:08] LABS: PLATELET ESTIMATE DECREASED
[2022-09-30] MEDS: VANCOMYCIN/WATER 1250 MG 1,250 MG/250 ML BAG IVPB SCH (13:24)
[2022-09-30] MEDS: FENTANYL NS IVPB 500 MCG/100 ML BAG IVPB SCH (18:25)
[2022-09-30] MEDS: ATORVASTATIN CA 20 MG TABLET (FP) GT SCH (21:23)
[2022-10-01] MEDS: CEFEPIME 2 GM in DEXTROSE 5%-WATER 100 ML IVPB SCH ×2 (01:25→09:41)
[2022-10-01] MEDS: PROPOFOL 1,000,000 MCG/100 ML VIAL IVPB SCH ×2 (01:26→09:44)
[2022-10-01] MEDS: HEPARIN NA (PORCINE) 5,000 UNITS/ML 1ML VIAL SQ SCH ×3 (05:49→21:30)
[2022-10-01] MEDS: HYDROCORTISONE SOD SUCCINATE 100 MG/2 ML VIAL IVPUSH SCH ×3 (05:50→21:30)
[2022-10-01] MEDS: VALPROATE SODIUM 250 MG/5 ML UNIT DOSE CUP GT SCH ×3 (05:50→21:30)
[2022-10-01] MEDS: INSULIN SLIDING SCALE (NOVOLOG) 1 VIAL SQ SCH ×3 (06:46→17:02)
[2022-10-01] MEDS: PANTOPRAZOLE SODIUM 40 MG VIAL IVPUSH SCH ×2 (09:40→21:30)
[2022-10-01] MEDS: AMINO ACIDS/PROTEIN HYDROLYS 30 ML LIQUID.PKT GT SCH ×2 (09:42→16:57)
[2022-10-01] MEDS: LACTOBACILLUS ACIDOPHILUS 1 TABLET GT SCH (09:42)
[2022-10-01] MEDS: SERTRALINE HCL 50 MG TABLET (FP) GT SCH (09:42)
[2022-10-01] MEDS: CHLORHEXIDINE GLUCONATE 0.12% 15ML CUP MM SCH ×2 (09:42→21:30)
[2022-10-01] MEDS: LOPERAMIDE HCL 1 MG/7.5 ML LIQUID PO SCH ×2 (09:42→21:30)
[2022-10-01] MEDS: FOLIC ACID 1 MG TABLET (FP) GT SCH (09:42)
[2022-10-01] MEDS: POTASSIUM CHLORIDE ORAL LIQUID 20 MEQ/15 ML PO SCH ×2 (09:42→21:30)
[2022-10-01] MEDS: MULTIVIT-MINERALS ORAL LIQUID GT SCH (09:43)
[2022-10-01] MEDS: FLUDROCORTISONE ACETATE 0.1 MG TABLET (FP) GT SCH (09:43)
[2022-10-01] MEDS: MUPIROCIN 2% TOPICAL OINTMENT FOR DECOLONIZATION NS SCH ×2 (09:43→21:30)
[2022-10-01] MEDS: ASCORBIC ACID 500 MG/5 ML UNIT DOSE CUP GT SCH (09:43)
[2022-10-01] MEDS: COLLAGENASE CLOSTRIDIUM HIST. 30 GRAMS TUBE TP SCH ×2 (09:44→21:30)
[2022-10-01] MEDS: INSULIN (LEVEMIR) 100 UNITS/ML UNITS SQ SCH ×2 (09:48→21:30)
[2022-10-01] MEDS: VANCOMYCIN/WATER 1250 MG 1,250 MG/250 ML BAG IVPB SCH (11:03)
[2022-10-01 11:55] LABS: HEMOGLOBIN 10.2 GM/dL (10.7-15.3); MCH 30.5 pg (25.7-33.7); MCHC 32.9 g/dl (32.0-36.0); MEAN CELL VOLUME 92.7 fl (80-96); MEAN PLT VOLUME 10.7 fl (7.5-11.1); PLATELET COUNT 53 10^3/uL (134-434); RBC 3.35 M/mm3 (3.60-5.2); RDW 20.1 % (11.6-15.6); WHITE BLOOD COUNT 12.2 K/mm3 (4.0-10.0)
[2022-10-01 12:06] LABS: BLOOD UREA NITROGEN 62.8 mg/dL (7-18); CALCIUM 7.9 mg/dL (8.5-10.1); MAGNESIUM 2.2 mg/dL (1.8-2.4)
[2022-10-01 12:07] LABS: ALBUMIN 1.4 g/dl (3.4-5.0)
[2022-10-01 12:09] LABS: PHOSPHOROUS 3.3 mg/dL (2.5-4.9)
[2022-10-01 12:11] LABS: BILIRUBIN,TOTAL 0.3 mg/dL (0.2-1); TOT PROT 5.1 g/dl (6.4-8.2)
[2022-10-01 12:16] LABS: ANISOCYTOSIS 1+; MACROCYTOSIS 1+; TEAR DROP CELLS 1+
[2022-10-01] MEDS: VASOPRESSIN 40 UNITS/100 ML BAG IV SCH (14:21)
[2022-10-01] MEDS: NOREPINEPHRINE BITARTRATE/D5W 8 MG/250 ML BAG IVPB SCH (14:21)
[2022-10-01] MEDS: BANATROL PLUS POWDER PACKET PO SCH ×2 (14:21→21:30)
[2022-10-01] MEDS: FENTANYL NS IVPB 500 MCG/100 ML BAG IVPB SCH (14:23)
[2022-10-01] MEDS: LEVOTHYROXINE SODIUM 100 MCG 5 ML VIAL IVPUSH SCH (16:57)
[2022-10-01] MEDS: ATORVASTATIN CA 20 MG TABLET (FP) GT SCH (21:30)
[2022-10-02] MEDS: HYDROCORTISONE SOD SUCCINATE 100 MG/2 ML VIAL IVPUSH SCH ×3 (06:50→22:41)
[2022-10-02] MEDS: BANATROL PLUS POWDER PACKET PO SCH ×3 (06:50→22:39)
[2022-10-02] MEDS: VALPROATE SODIUM 250 MG/5 ML UNIT DOSE CUP GT SCH ×3 (06:50→22:40)
[2022-10-02] MEDS: HEPARIN NA (PORCINE) 5,000 UNITS/ML 1ML VIAL SQ SCH ×3 (06:50→22:40)
[2022-10-02] MEDS: INSULIN SLIDING SCALE (NOVOLOG) 1 VIAL SQ SCH ×3 (07:32→16:03)
[2022-10-02] MEDS: NOREPINEPHRINE BITARTRATE/D5W 8 MG/250 ML BAG IVPB SCH (07:38)
[2022-10-02 08:06] LABS: HEMATOCRIT 31.9 % (32.4-45.2); HEMOGLOBIN 10.5 GM/dL (10.7-15.3); MCH 30.7 pg (25.7-33.7); MCHC 32.8 g/dl (32.0-36.0); MEAN CELL VOLUME 93.5 fl (80-96); MEAN PLT VOLUME 10.2 fl (7.5-11.1); PLATELET COUNT 45 10^3/uL (134-434); RBC 3.41 M/mm3 (3.60-5.2); RDW 19.5 % (11.6-15.6); WHITE BLOOD COUNT 17.3 K/mm3 (4.0-10.0)
[2022-10-02 08:39] LABS: CALCIUM 8.1 mg/dL (8.5-10.1)
[2022-10-02 08:40] LABS: ALBUMIN 1.4 g/dl (3.4-5.0); BLOOD UREA NITROGEN 64.1 mg/dL (7-18); MAGNESIUM 2.2 mg/dL (1.8-2.4)
[2022-10-02 08:42] LABS: CREATININE 1.1 mg/dL (0.55-1.3)
[2022-10-02 08:43] LABS: PHOSPHOROUS 3.2 mg/dL (2.5-4.9)
[2022-10-02 08:44] LABS: BILIRUBIN,TOTAL 0.4 mg/dL (0.2-1); TOT PROT 5.3 g/dl (6.4-8.2)
[2022-10-02 09:08] LABS: ANISOCYTOSIS 1+; MACROCYTOSIS 0
[2022-10-02] MEDS: INSULIN (LEVEMIR) 100 UNITS/ML UNITS SQ SCH ×2 (09:08→22:40)
[2022-10-02] MEDS: POTASSIUM CHLORIDE ORAL LIQUID 20 MEQ/15 ML PO SCH ×2 (09:09→22:41)
[2022-10-02] MEDS: PANTOPRAZOLE SODIUM 40 MG VIAL IVPUSH SCH ×2 (09:09→22:41)
[2022-10-02] MEDS: CHLORHEXIDINE GLUCONATE 0.12% 15ML CUP MM SCH ×2 (09:09→22:41)
[2022-10-02] MEDS: MULTIVIT-MINERALS ORAL LIQUID GT SCH (09:11)
[2022-10-02] MEDS: ASCORBIC ACID 500 MG/5 ML UNIT DOSE CUP GT SCH (09:11)
[2022-10-02] MEDS: AMINO ACIDS/PROTEIN HYDROLYS 30 ML LIQUID.PKT GT SCH ×2 (09:12→17:29)
[2022-10-02] MEDS: LEVOTHYROXINE SODIUM 100 MCG 5 ML VIAL IVPUSH SCH (09:12)
[2022-10-02] MEDS: FLUDROCORTISONE ACETATE 0.1 MG TABLET (FP) GT SCH (09:12)
[2022-10-02] MEDS: FOLIC ACID 1 MG TABLET (FP) GT SCH (09:12)
[2022-10-02] MEDS: SERTRALINE HCL 50 MG TABLET (FP) GT SCH (09:13)
[2022-10-02] MEDS: LACTOBACILLUS ACIDOPHILUS 1 TABLET GT SCH (09:13)
[2022-10-02] MEDS: VASOPRESSIN 40 UNITS/100 ML BAG IV SCH (09:14)
[2022-10-02] MEDS: LOPERAMIDE HCL 1 MG/7.5 ML LIQUID PO SCH ×2 (09:52→22:40)
[2022-10-02] MEDS: COLLAGENASE CLOSTRIDIUM HIST. 30 GRAMS TUBE TP SCH ×2 (09:52→22:41)
[2022-10-02] MEDS: FLUCONAZOLE 100 MG/NS 50 ML IVPB SCH (11:56)
[2022-10-02] MEDS: PROPOFOL 1,000,000 MCG/100 ML VIAL IVPB SCH (12:03)
[2022-10-02] MEDS: VANCOMYCIN/WATER 1250 MG 1,250 MG/250 ML BAG IVPB SCH (13:56)
[2022-10-02] MEDS ORDERED: SODIUM BICARBONATE 8.4% 50 MEQ/50 ML VIAL ONE ×2 (14:51→17:28)
[2022-10-02] MEDS: SODIUM BICARBONATE 8.4% 50 MEQ/50 ML DISP.SYRIN IVPUSH SCH ×2 (14:55→18:33)
[2022-10-02] MEDS ORDERED: METOCLOPRAMIDE HCL INJECTION 10 MG/2 ML VIAL IVPUSH ONE (20:45)
[2022-10-02] MEDS: ATORVASTATIN CA 20 MG TABLET (FP) GT SCH (22:40)
[2022-10-03] MEDS: FENTANYL NS IVPB 500 MCG/100 ML BAG IVPB SCH ×2 (04:25→17:05)
[2022-10-03] MEDS: NOREPINEPHRINE BITARTRATE/D5W 8 MG/250 ML BAG IVPB SCH (05:15)
[2022-10-03] MEDS ORDERED: METOCLOPRAMIDE HCL INJECTION 10 MG/2 ML VIAL IVPUSH ONE (06:00)
[2022-10-03] MEDS: BANATROL PLUS POWDER PACKET PO SCH ×3 (06:42→22:10)
[2022-10-03] MEDS: VALPROATE SODIUM 250 MG/5 ML UNIT DOSE CUP GT SCH ×3 (06:42→23:06)
[2022-10-03] MEDS: HEPARIN NA (PORCINE) 5,000 UNITS/ML 1ML VIAL SQ SCH (06:42)
[2022-10-03] MEDS: HYDROCORTISONE SOD SUCCINATE 100 MG/2 ML VIAL IVPUSH SCH ×3 (06:43→23:08)
[2022-10-03] MEDS: INSULIN SLIDING SCALE (NOVOLOG) 1 VIAL SQ SCH ×3 (07:17→16:52)
[2022-10-03 07:27] LABS: HEMATOCRIT 30.9 % (32.4-45.2); HEMOGLOBIN 10.2 GM/dL (10.7-15.3); MCH 31.1 pg (25.7-33.7); MCHC 33.1 g/dl (32.0-36.0); MEAN CELL VOLUME 93.9 fl (80-96); MEAN PLT VOLUME 9.9 fl (7.5-11.1); RBC 3.29 M/mm3 (3.60-5.2); RDW 19.8 % (11.6-15.6); WHITE BLOOD COUNT 13.3 K/mm3 (4.0-10.0)
[2022-10-03 07:34] LABS: PLATELET COUNT 32 10^3/uL (134-434)
[2022-10-03] MEDS: VASOPRESSIN 40 UNITS/100 ML BAG IV SCH (07:47)
[2022-10-03 07:49] LABS: ALBUMIN 1.3 g/dl (3.4-5.0); BLOOD UREA NITROGEN 73.1 mg/dL (7-18); MAGNESIUM 2.1 mg/dL (1.8-2.4)
[2022-10-03 07:51] LABS: PHOSPHOROUS 3.5 mg/dL (2.5-4.9)
[2022-10-03 07:52] LABS: BILIRUBIN,TOTAL 0.3 mg/dL (0.2-1); CREATININE 1.2 mg/dL (0.55-1.3); TOT PROT 5.3 g/dl (6.4-8.2)
[2022-10-03 09:16] LABS: ANISOCYTOSIS 1+; MACROCYTOSIS 0
[2022-10-03] MEDS: INSULIN (LEVEMIR) 100 UNITS/ML UNITS SQ SCH ×2 (09:51→22:10)
[2022-10-03] MEDS: SERTRALINE HCL 50 MG TABLET (FP) GT SCH (09:52)
[2022-10-03] MEDS: LACTOBACILLUS ACIDOPHILUS 1 TABLET GT SCH (09:52)
[2022-10-03] MEDS: ASCORBIC ACID 500 MG/5 ML UNIT DOSE CUP GT SCH (09:52)
[2022-10-03] MEDS: POTASSIUM CHLORIDE ORAL LIQUID 20 MEQ/15 ML PO SCH (09:52)
[2022-10-03] MEDS: LOPERAMIDE HCL 1 MG/7.5 ML LIQUID PO SCH ×2 (09:52→23:10)
[2022-10-03] MEDS: FOLIC ACID 1 MG TABLET (FP) GT SCH (09:52)
[2022-10-03] MEDS: MULTIVIT-MINERALS ORAL LIQUID GT SCH (09:52)
[2022-10-03] MEDS: AMINO ACIDS/PROTEIN HYDROLYS 30 ML LIQUID.PKT GT SCH ×2 (09:53→17:43)
[2022-10-03] MEDS: CHLORHEXIDINE GLUCONATE 0.12% 15ML CUP MM SCH ×2 (09:53→23:06)
[2022-10-03] MEDS: PANTOPRAZOLE SODIUM 40 MG VIAL IVPUSH SCH ×2 (09:53→23:06)
[2022-10-03] MEDS: COLLAGENASE CLOSTRIDIUM HIST. 30 GRAMS TUBE TP SCH ×2 (09:54→23:07)
[2022-10-03] MEDS: LEVOTHYROXINE SODIUM 100 MCG 5 ML VIAL IVPUSH SCH (09:54)
[2022-10-03] MEDS: FLUDROCORTISONE ACETATE 0.1 MG TABLET (FP) GT SCH (09:54)
[2022-10-03] MEDS ORDERED: ACETAMINOPHEN 1000 MG/100 ML BAG IVPB ONE (10:45)
[2022-10-03] MEDS: FLUCONAZOLE 100 MG/NS 50 ML IVPB SCH (11:08)
[2022-10-03] MEDS: PROPOFOL 1,000,000 MCG/100 ML VIAL IVPB SCH (12:26)
[2022-10-03] MEDS: METOCLOPRAMIDE HCL INJECTION 10 MG/2 ML VIAL IVPUSH SCH ×2 (13:12→17:43)
[2022-10-03] MEDS: ATORVASTATIN CA 20 MG TABLET (FP) GT SCH (23:06)
[2022-10-04] MEDS: METOCLOPRAMIDE HCL INJECTION 10 MG/2 ML VIAL IVPUSH SCH (03:21)
[2022-10-04] MEDS: FENTANYL NS IVPB 500 MCG/100 ML BAG IVPB SCH ×2 (04:52→16:26)
[2022-10-04] MEDS: NOREPINEPHRINE BITARTRATE/D5W 8 MG/250 ML BAG IVPB SCH ×2 (05:42→09:21)
[2022-10-04] MEDS: VALPROATE SODIUM 250 MG/5 ML UNIT DOSE CUP GT SCH ×3 (05:58→21:42)
[2022-10-04] MEDS: HYDROCORTISONE SOD SUCCINATE 100 MG/2 ML VIAL IVPUSH SCH ×3 (05:58→21:43)
[2022-10-04] MEDS: BANATROL PLUS POWDER PACKET PO SCH ×3 (06:01→21:42)
[2022-10-04] MEDS: PROPOFOL 1,000,000 MCG/100 ML VIAL IVPB SCH ×3 (06:01→18:00)
[2022-10-04] MEDS: INSULIN SLIDING SCALE (NOVOLOG) 1 VIAL SQ SCH ×3 (06:44→16:27)
[2022-10-04] MEDS: VASOPRESSIN 40 UNITS/100 ML BAG IV SCH ×2 (07:00→20:20)
[2022-10-04 07:22] LABS: HEMATOCRIT 31.6 % (32.4-45.2); HEMOGLOBIN 10.4 GM/dL (10.7-15.3); MCH 31.1 pg (25.7-33.7); MCHC 33.1 g/dl (32.0-36.0); MEAN CELL VOLUME 94.2 fl (80-96); MEAN PLT VOLUME 9.3 fl (7.5-11.1); PLATELET COUNT 38 10^3/uL (134-434); RBC 3.36 M/mm3 (3.60-5.2); WHITE BLOOD COUNT 14.1 K/mm3 (4.0-10.0)
[2022-10-04] MEDS: AMINO ACIDS/PROTEIN HYDROLYS 30 ML LIQUID.PKT GT SCH ×2 (07:44→16:48)
[2022-10-04 08:22] LABS: ALBUMIN 1.3 g/dl (3.4-5.0); BLOOD UREA NITROGEN 75.2 mg/dL (7-18)
[2022-10-04 08:25] LABS: CREATININE 1.3 mg/dL (0.55-1.3); PHOSPHOROUS 4.2 mg/dL (2.5-4.9)
[2022-10-04 08:26] LABS: BILIRUBIN,TOTAL 0.4 mg/dL (0.2-1)
[2022-10-04 08:27] LABS: TOT PROT 5.2 g/dl (6.4-8.2)
[2022-10-04] MEDS: SERTRALINE HCL 50 MG TABLET (FP) GT SCH (09:19)
[2022-10-04] MEDS: FOLIC ACID 1 MG TABLET (FP) GT SCH (09:19)
[2022-10-04] MEDS: CHLORHEXIDINE GLUCONATE 0.12% 15ML CUP MM SCH ×2 (09:19→21:43)
[2022-10-04] MEDS: ASCORBIC ACID 500 MG/5 ML UNIT DOSE CUP GT SCH (09:20)
[2022-10-04] MEDS: LACTOBACILLUS ACIDOPHILUS 1 TABLET GT SCH (09:20)
[2022-10-04] MEDS: FLUDROCORTISONE ACETATE 0.1 MG TABLET (FP) GT SCH (09:20)
[2022-10-04] MEDS: LEVOTHYROXINE SODIUM 100 MCG 5 ML VIAL IVPUSH SCH (09:20)
[2022-10-04] MEDS: PANTOPRAZOLE SODIUM 40 MG VIAL IVPUSH SCH ×2 (09:20→21:43)
[2022-10-04] MEDS: MULTIVIT-MINERALS ORAL LIQUID GT SCH (09:20)
[2022-10-04 09:24] LABS: ANISOCYTOSIS 1+; MACROCYTOSIS 0
[2022-10-04] MEDS: INSULIN (LEVEMIR) 100 UNITS/ML UNITS SQ SCH ×2 (09:27→21:43)
[2022-10-04] MEDS: FLUCONAZOLE 100 MG/NS 50 ML IVPB SCH (10:36)
[2022-10-04] MEDS: COLLAGENASE CLOSTRIDIUM HIST. 30 GRAMS TUBE TP SCH ×2 (12:46→21:43)
[2022-10-04] MEDS: ATORVASTATIN CA 20 MG TABLET (FP) GT SCH (21:43)
[2022-10-05] MEDS: NOREPINEPHRINE BITARTRATE/D5W 8 MG/250 ML BAG IVPB SCH ×3 (01:50→23:58)
[2022-10-05] MEDS: PROPOFOL 1,000,000 MCG/100 ML VIAL IVPB SCH ×3 (01:50→13:21)
[2022-10-05] MEDS: FENTANYL NS IVPB 500 MCG/100 ML BAG IVPB SCH ×3 (03:29→23:57)
[2022-10-05] MEDS: INSULIN SLIDING SCALE (NOVOLOG) 1 VIAL SQ SCH ×3 (06:26→17:56)
[2022-10-05] MEDS: VALPROATE SODIUM 250 MG/5 ML UNIT DOSE CUP GT SCH ×3 (06:41→21:34)
[2022-10-05] MEDS: HYDROCORTISONE SOD SUCCINATE 100 MG/2 ML VIAL IVPUSH SCH ×3 (06:41→21:34)
[2022-10-05] MEDS: BANATROL PLUS POWDER PACKET PO SCH ×3 (06:41→21:34)
[2022-10-05 07:27] LABS: HEMATOCRIT 29.4 % (32.4-45.2); HEMOGLOBIN 9.8 GM/dL (10.7-15.3); MCH 31.3 pg (25.7-33.7); MCHC 33.3 g/dl (32.0-36.0); MEAN PLT VOLUME 9.1 fl (7.5-11.1); PLATELET COUNT 47 10^3/uL (134-434); RBC 3.12 M/mm3 (3.60-5.2); RDW 18.3 % (11.6-15.6); WHITE BLOOD COUNT 13.6 K/mm3 (4.0-10.0)
[2022-10-05 07:59] LABS: ALBUMIN 1.3 g/dl (3.4-5.0); BLOOD UREA NITROGEN 77.3 mg/dL (7-18); CALCIUM 7.8 mg/dL (8.5-10.1); MAGNESIUM 2.1 mg/dL (1.8-2.4)
[2022-10-05 08:02] LABS: PHOSPHOROUS 4.3 mg/dL (2.5-4.9)
[2022-10-05 08:03] LABS: CREATININE 1.2 mg/dL (0.55-1.3)
[2022-10-05 08:04] LABS: BILIRUBIN,TOTAL 0.4 mg/dL (0.2-1); TOT PROT 5.1 g/dl (6.4-8.2)
[2022-10-05] MEDS: SERTRALINE HCL 50 MG TABLET (FP) GT SCH (09:47)
[2022-10-05] MEDS: PANTOPRAZOLE SODIUM 40 MG VIAL IVPUSH SCH ×2 (09:47→21:34)
[2022-10-05] MEDS: CHLORHEXIDINE GLUCONATE 0.12% 15ML CUP MM SCH ×2 (09:48→21:34)
[2022-10-05] MEDS: AMINO ACIDS/PROTEIN HYDROLYS 30 ML LIQUID.PKT GT SCH ×2 (09:48→17:53)
[2022-10-05] MEDS: MULTIVIT-MINERALS ORAL LIQUID GT SCH (09:48)
[2022-10-05] MEDS: FLUDROCORTISONE ACETATE 0.1 MG TABLET (FP) GT SCH (09:48)
[2022-10-05] MEDS: LACTOBACILLUS ACIDOPHILUS 1 TABLET GT SCH (09:48)
[2022-10-05] MEDS: FOLIC ACID 1 MG TABLET (FP) GT SCH (09:48)
[2022-10-05] MEDS: LEVOTHYROXINE SODIUM 100 MCG 5 ML VIAL IVPUSH SCH (09:49)
[2022-10-05] MEDS: COLLAGENASE CLOSTRIDIUM HIST. 30 GRAMS TUBE TP SCH ×2 (09:49→21:35)
[2022-10-05] MEDS: ASCORBIC ACID 500 MG/5 ML UNIT DOSE CUP GT SCH (09:49)
[2022-10-05] MEDS: FLUCONAZOLE 100 MG/NS 50 ML IVPB SCH (09:49)
[2022-10-05] MEDS: VASOPRESSIN 40 UNITS/100 ML BAG IV SCH (09:52)
[2022-10-05] MEDS: INSULIN (LEVEMIR) 100 UNITS/ML UNITS SQ SCH ×2 (09:54→21:35)
[2022-10-05] MEDS: ATORVASTATIN CA 20 MG TABLET (FP) GT SCH (21:34)
[2022-10-06] MEDS: NOREPINEPHRINE BITARTRATE/D5W 8 MG/250 ML BAG IVPB SCH ×2 (05:25→20:10)
[2022-10-06] MEDS: BANATROL PLUS POWDER PACKET PO SCH (06:14)
[2022-10-06] MEDS: PROPOFOL 1,000,000 MCG/100 ML VIAL IVPB SCH ×3 (06:14→17:05)
[2022-10-06] MEDS: HYDROCORTISONE SOD SUCCINATE 100 MG/2 ML VIAL IVPUSH SCH ×3 (06:14→21:45)
[2022-10-06] MEDS: INSULIN SLIDING SCALE (NOVOLOG) 1 VIAL SQ SCH ×3 (06:14→17:04)
[2022-10-06] MEDS: VALPROATE SODIUM 250 MG/5 ML UNIT DOSE CUP GT SCH ×3 (06:45→21:45)
[2022-10-06 07:12] LABS: HEMATOCRIT 26.7 % (32.4-45.2); HEMOGLOBIN 8.7 GM/dL (10.7-15.3); MCH 30.3 pg (25.7-33.7); MCHC 32.4 g/dl (32.0-36.0); MEAN CELL VOLUME 93.6 fl (80-96); MEAN PLT VOLUME 9.5 fl (7.5-11.1); PLATELET COUNT 77 10^3/uL (134-434); RBC 2.85 M/mm3 (3.60-5.2); RDW 18.4 % (11.6-15.6); WHITE BLOOD COUNT 12.9 K/mm3 (4.0-10.0)
[2022-10-06 07:30] LABS: ALBUMIN 1.3 g/dl (3.4-5.0); BLOOD UREA NITROGEN 73.4 mg/dL (7-18); CALCIUM 7.9 mg/dL (8.5-10.1)
[2022-10-06 07:34] LABS: CREATININE 1.1 mg/dL (0.55-1.3)
[2022-10-06 07:35] LABS: BILIRUBIN,TOTAL 0.4 mg/dL (0.2-1); TOT PROT 4.7 g/dl (6.4-8.2)
[2022-10-06] MEDS ORDERED: METOCLOPRAMIDE HCL INJECTION 10 MG/2 ML VIAL IVPUSH ONE (08:21)
[2022-10-06] MEDS: AMINO ACIDS/PROTEIN HYDROLYS 30 ML LIQUID.PKT GT SCH ×2 (08:22→17:05)
[2022-10-06] MEDS ORDERED: LACTATED RINGERS SOLUTION 1,000 ML/1,000 ML INFUS.BAG IV SCH (08:30)
[2022-10-06] MEDS: VASOPRESSIN 40 UNITS/100 ML BAG IV SCH (09:08)
[2022-10-06] MEDS: LACTOBACILLUS ACIDOPHILUS 1 TABLET GT SCH (09:10)
[2022-10-06] MEDS: COLLAGENASE CLOSTRIDIUM HIST. 30 GRAMS TUBE TP SCH ×2 (09:10→21:45)
[2022-10-06] MEDS: PANTOPRAZOLE SODIUM 40 MG VIAL IVPUSH SCH ×2 (09:10→21:45)
[2022-10-06] MEDS: FLUDROCORTISONE ACETATE 0.1 MG TABLET (FP) GT SCH (09:10)
[2022-10-06] MEDS: ASCORBIC ACID 500 MG/5 ML UNIT DOSE CUP GT SCH (09:10)
[2022-10-06] MEDS: CHLORHEXIDINE GLUCONATE 0.12% 15ML CUP MM SCH ×2 (09:10→21:45)
[2022-10-06] MEDS: MULTIVIT-MINERALS ORAL LIQUID GT SCH (09:10)
[2022-10-06] MEDS: FOLIC ACID 1 MG TABLET (FP) GT SCH (09:10)
[2022-10-06] MEDS: SERTRALINE HCL 50 MG TABLET (FP) GT SCH (09:11)
[2022-10-06] MEDS: FLUCONAZOLE 100 MG/NS 50 ML IVPB SCH (09:11)
[2022-10-06] MEDS: INSULIN (LEVEMIR) 100 UNITS/ML UNITS SQ SCH ×2 (10:22→21:59)
[2022-10-06] MEDS: LEVOTHYROXINE SODIUM 100 MCG 5 ML VIAL IVPUSH SCH (10:23)
[2022-10-06] MEDS: FENTANYL NS IVPB 500 MCG/100 ML BAG IVPB SCH ×3 (11:03→20:10)
[2022-10-06] MEDS: MIDODRINE HCL 5 MG TABLET PO SCH ×2 (13:07→17:05)
[2022-10-06] MEDS ORDERED: FUROSEMIDE 40 MG/4 ML INJECTABLE VIAL IVPUSH ONE (13:16)
[2022-10-06] MEDS ORDERED: POTASSIUM CHLORIDE ORAL LIQUID 20 MEQ/15 ML PO ONE (13:16)
[2022-10-06] MEDS ORDERED: SODIUM BICARBONATE 8.4% 50 MEQ/50 ML DISP.SYRIN IVPUSH ONE (13:16)
[2022-10-06] MEDS ORDERED: SODIUM BICARBONATE 8.4% 50 MEQ/50 ML VIAL IVPUSH ONE (15:00)
[2022-10-06] MEDS: ATORVASTATIN CA 20 MG TABLET (FP) GT SCH (21:44)
[2022-10-07] MEDS: PROPOFOL 1,000,000 MCG/100 ML VIAL IVPB SCH ×2 (04:45→15:05)
[2022-10-07] MEDS: NOREPINEPHRINE BITARTRATE/D5W 8 MG/250 ML BAG IVPB SCH (06:11)
[2022-10-07] MEDS: INSULIN SLIDING SCALE (NOVOLOG) 1 VIAL SQ SCH ×3 (06:12→16:19)
[2022-10-07] MEDS: VALPROATE SODIUM 250 MG/5 ML UNIT DOSE CUP GT SCH ×3 (06:12→21:56)
[2022-10-07] MEDS: HYDROCORTISONE SOD SUCCINATE 100 MG/2 ML VIAL IVPUSH SCH ×3 (06:12→21:52)
[2022-10-07 06:44] LABS: HEMATOCRIT 24.4 % (32.4-45.2); HEMOGLOBIN 8.1 GM/dL (10.7-15.3); MCH 30.7 pg (25.7-33.7); MCHC 33.1 g/dl (32.0-36.0); MEAN CELL VOLUME 92.8 fl (80-96); MEAN PLT VOLUME 8.9 fl (7.5-11.1); PLATELET COUNT 101 10^3/uL (134-434); RBC 2.62 M/mm3 (3.60-5.2); RDW 17.9 % (11.6-15.6); WHITE BLOOD COUNT 12.6 K/mm3 (4.0-10.0)
[2022-10-07 07:04] LABS: CHLORIDE 121 mmol/L (98-107); SODIUM 147 mmol/L (136-145)
[2022-10-07 07:10] LABS: GLUCOSE,RANDOM 131 mg/dL (74-106)
[2022-10-07 07:11] LABS: CALCIUM 7.5 mg/dL (8.5-10.1); CO2 14 mmol/L (21-32)
[2022-10-07 07:12] LABS: ALBUMIN 1.3 g/dl (3.4-5.0); BLOOD UREA NITROGEN 70.9 mg/dL (7-18); MAGNESIUM 1.7 mg/dL (1.8-2.4)
[2022-10-07 07:13] LABS: SGPT/ALT < 6 U/L (13-61)
[2022-10-07 07:14] LABS: CREATININE 1.1 mg/dL (0.55-1.3); PHOSPHOROUS 4.1 mg/dL (2.5-4.9)
[2022-10-07 07:15] LABS: BILIRUBIN,TOTAL 0.4 mg/dL (0.2-1); SGOT/AST 14 U/L (15-37); TOT PROT 4.6 g/dl (6.4-8.2)
[2022-10-07 07:17] LABS: ALK PHOS 74 U/L (45-117)
[2022-10-07] MEDS: AMINO ACIDS/PROTEIN HYDROLYS 30 ML LIQUID.PKT GT SCH ×2 (07:33→16:42)
[2022-10-07 07:34] LABS: ANION GAP 12 MMOL/L (8-16)
[2022-10-07] MEDS ORDERED: MAGNESIUM SULF 50% (8.12 MEQ/2 ML-1 GM VIAL) IVPB ONE (07:42)
[2022-10-07] MEDS: MIDODRINE HCL 5 MG TABLET PO SCH ×3 (07:50→17:01)
[2022-10-07] MEDS ORDERED: POTASSIUM PHOSPHATE 30 MM in DEXTROSE 5%-WATER - 500 ML IVPB ONE (09:00)
[2022-10-07 09:26] LABS: ANISOCYTOSIS 1+; MACROCYTOSIS 0
[2022-10-07] MEDS: PANTOPRAZOLE SODIUM 40 MG VIAL IVPUSH SCH ×2 (09:43→21:56)
[2022-10-07] MEDS: LEVOTHYROXINE SODIUM 100 MCG 5 ML VIAL IVPUSH SCH (09:43)
[2022-10-07] MEDS: FOLIC ACID 1 MG TABLET (FP) GT SCH (09:43)
[2022-10-07] MEDS: FLUCONAZOLE 100 MG/NS 50 ML IVPB SCH (09:43)
[2022-10-07] MEDS: CHLORHEXIDINE GLUCONATE 0.12% 15ML CUP MM SCH ×2 (09:43→21:56)
[2022-10-07] MEDS: SERTRALINE HCL 50 MG TABLET (FP) GT SCH (09:43)
[2022-10-07] MEDS: LACTOBACILLUS ACIDOPHILUS 1 TABLET GT SCH (09:43)
[2022-10-07] MEDS: FLUDROCORTISONE ACETATE 0.1 MG TABLET (FP) GT SCH (09:43)
[2022-10-07] MEDS: MULTIVIT-MINERALS ORAL LIQUID GT SCH (09:44)
[2022-10-07] MEDS: ASCORBIC ACID 500 MG/5 ML UNIT DOSE CUP GT SCH (09:44)
[2022-10-07] MEDS: INSULIN (LEVEMIR) 100 UNITS/ML UNITS SQ SCH ×2 (09:45→21:52)
[2022-10-07] MEDS: VASOPRESSIN 40 UNITS/100 ML BAG IV SCH (10:32)
[2022-10-07] MEDS: COLLAGENASE CLOSTRIDIUM HIST. 30 GRAMS TUBE TP SCH ×2 (12:16→21:58)
[2022-10-07 13:22] LABS: ACTIVATED PTT 27.5 SECONDS (25.2-36.5)
[2022-10-07] MEDS: FENTANYL NS IVPB 500 MCG/100 ML BAG IVPB SCH ×2 (14:30→21:56)
[2022-10-07] MEDS ORDERED: POTASSIUM CHLORIDE ORAL LIQUID 20 MEQ/15 ML GT ONE (17:00)
[2022-10-07 20:35] LABS: INR 1.09 (0.83-1.09); PROTHROMBIN TIME (PATIENT) 12.6 SEC (9.7-13.0)
[2022-10-07] MEDS: SODIUM BICARBONATE 650 MG TABLET PO SCH (21:56)
[2022-10-07] MEDS: ATORVASTATIN CA 20 MG TABLET (FP) GT SCH (21:56)
[2022-10-08] MEDS: PROPOFOL 1,000,000 MCG/100 ML VIAL IVPB SCH (04:00)
[2022-10-08] MEDS: NOREPINEPHRINE BITARTRATE/D5W 8 MG/250 ML BAG IVPB SCH (06:13)
[2022-10-08] MEDS: INSULIN SLIDING SCALE (NOVOLOG) 1 VIAL SQ SCH ×3 (06:14→16:14)
[2022-10-08] MEDS: HYDROCORTISONE SOD SUCCINATE 100 MG/2 ML VIAL IVPUSH SCH ×3 (06:14→22:34)
[2022-10-08] MEDS: VALPROATE SODIUM 250 MG/5 ML UNIT DOSE CUP GT SCH ×3 (06:14→22:32)
[2022-10-08] MEDS: AMINO ACIDS/PROTEIN HYDROLYS 30 ML LIQUID.PKT GT SCH ×2 (07:18→16:59)
[2022-10-08 07:20] LABS: HEMATOCRIT 27.1 % (32.4-45.2); HEMOGLOBIN 8.8 GM/dL (10.7-15.3); MCH 30.3 pg (25.7-33.7); MCHC 32.5 g/dl (32.0-36.0); MEAN CELL VOLUME 93.1 fl (80-96); MEAN PLT VOLUME 8.9 fl (7.5-11.1); PLATELET COUNT 166 10^3/uL (134-434); RBC 2.91 M/mm3 (3.60-5.2); RDW 17.8 % (11.6-15.6); WHITE BLOOD COUNT 17.2 K/mm3 (4.0-10.0)
[2022-10-08 07:28] LABS: CALCIUM 7.8 mg/dL (8.5-10.1)
[2022-10-08 07:29] LABS: ALBUMIN 1.5 g/dl (3.4-5.0); BLOOD UREA NITROGEN 71.8 mg/dL (7-18); MAGNESIUM 2.4 mg/dL (1.8-2.4)
[2022-10-08 07:34] LABS: PHOSPHOROUS 6.2 mg/dL (2.5-4.9); TOT PROT 5.1 g/dl (6.4-8.2)
[2022-10-08] MEDS ORDERED: POTASSIUM CHLORIDE ORAL LIQUID 20 MEQ/15 ML GT ONE (07:34)
[2022-10-08 07:36] LABS: BILIRUBIN,TOTAL 0.4 mg/dL (0.2-1)
[2022-10-08] MEDS: POTASSIUM CHLORIDE 20 MEQ PREMIX IVPB 100 ML IVPB SCH ×2 (08:06→10:47)
[2022-10-08] MEDS ORDERED: ROCURONIUM BROMIDE 50 MG/5 ML VIAL IVPUSH ONE (10:00)
[2022-10-08] MEDS ORDERED: MIDAZOLAM HCL 5 MG/1 ML Single Dose Vial IVPUSH ONE (10:00)
[2022-10-08] MEDS: MULTIVIT-MINERALS ORAL LIQUID GT SCH (10:48)
[2022-10-08] MEDS: FLUDROCORTISONE ACETATE 0.1 MG TABLET (FP) GT SCH (10:48)
[2022-10-08] MEDS: LACTOBACILLUS ACIDOPHILUS 1 TABLET GT SCH (10:48)
[2022-10-08] MEDS: FOLIC ACID 1 MG TABLET (FP) GT SCH (10:48)
[2022-10-08] MEDS: MIDODRINE HCL 5 MG TABLET PO SCH ×3 (10:48→16:59)
[2022-10-08] MEDS: CHLORHEXIDINE GLUCONATE 0.12% 15ML CUP MM SCH ×2 (10:48→22:33)
[2022-10-08] MEDS: COLLAGENASE CLOSTRIDIUM HIST. 30 GRAMS TUBE TP SCH ×2 (10:49→22:33)
[2022-10-08] MEDS: SERTRALINE HCL 50 MG TABLET (FP) GT SCH (10:49)
[2022-10-08] MEDS: ASCORBIC ACID 500 MG/5 ML UNIT DOSE CUP GT SCH (10:49)
[2022-10-08] MEDS: SODIUM BICARBONATE 650 MG TABLET PO SCH ×2 (10:49→22:34)
[2022-10-08] MEDS ORDERED: ATROPINE SULFATE 1 MG/10 ML DISP.SYRIN IVPUSH ONE (11:00)
[2022-10-08] MEDS: PANTOPRAZOLE SODIUM 40 MG VIAL IVPUSH SCH ×2 (11:19→22:33)
[2022-10-08] MEDS: LEVOTHYROXINE SODIUM 100 MCG 5 ML VIAL IVPUSH SCH (11:19)
[2022-10-08] MEDS: FLUCONAZOLE 100 MG/NS 50 ML IVPB SCH (11:20)
[2022-10-08] MEDS: INSULIN (LEVEMIR) 100 UNITS/ML UNITS SQ SCH ×2 (11:21→22:33)
[2022-10-08] MEDS: FENTANYL NS IVPB 500 MCG/100 ML BAG IVPB SCH (14:30)
[2022-10-08] MEDS: ATORVASTATIN CA 20 MG TABLET (FP) GT SCH (22:33)
[2022-10-09] MEDS ORDERED: FUROSEMIDE 40 MG/4 ML INJECTABLE VIAL IVPUSH ONE (01:36)
[2022-10-09] MEDS ORDERED: METOLAZONE 5 MG TABLET PO ONE (01:38)
[2022-10-09] MEDS: NOREPINEPHRINE BITARTRATE/D5W 8 MG/250 ML BAG IVPB SCH ×2 (05:15→13:02)
[2022-10-09] MEDS: HYDROCORTISONE SOD SUCCINATE 100 MG/2 ML VIAL IVPUSH SCH ×3 (05:54→22:17)
[2022-10-09] MEDS: VALPROATE SODIUM 250 MG/5 ML UNIT DOSE CUP GT SCH ×3 (05:54→22:16)
[2022-10-09] MEDS: PROPOFOL 1,000,000 MCG/100 ML VIAL IVPB SCH (06:00)
[2022-10-09] MEDS: INSULIN SLIDING SCALE (NOVOLOG) 1 VIAL SQ SCH ×3 (06:38→17:57)
[2022-10-09 07:02] LABS: HEMATOCRIT 27.2 % (32.4-45.2); MCH 31.1 pg (25.7-33.7); MEAN CELL VOLUME 94.1 fl (80-96); MEAN PLT VOLUME 8.9 fl (7.5-11.1); PLATELET COUNT 198 10^3/uL (134-434); RBC 2.89 M/mm3 (3.60-5.2); WHITE BLOOD COUNT 19.4 K/mm3 (4.0-10.0)
[2022-10-09 07:22] LABS: CALCIUM 7.8 mg/dL (8.5-10.1)
[2022-10-09 07:23] LABS: ALBUMIN 1.5 g/dl (3.4-5.0); BLOOD UREA NITROGEN 69.3 mg/dL (7-18)
[2022-10-09 07:28] LABS: BILIRUBIN,TOTAL 0.4 mg/dL (0.2-1); TOT PROT 5.2 g/dl (6.4-8.2)
[2022-10-09] MEDS: SEVELAMER CARBONATE 0.8 GM POWDER PACKET PO SCH ×3 (09:20→17:58)
[2022-10-09] MEDS: AMINO ACIDS/PROTEIN HYDROLYS 30 ML LIQUID.PKT GT SCH ×2 (09:20→17:44)
[2022-10-09] MEDS: MIDODRINE HCL 5 MG TABLET PO SCH ×3 (09:22→17:44)
[2022-10-09] MEDS: SERTRALINE HCL 50 MG TABLET (FP) GT SCH (09:23)
[2022-10-09] MEDS: LACTOBACILLUS ACIDOPHILUS 1 TABLET GT SCH (09:25)
[2022-10-09] MEDS: FLUDROCORTISONE ACETATE 0.1 MG TABLET (FP) GT SCH (09:25)
[2022-10-09] MEDS: SODIUM BICARBONATE 650 MG TABLET PO SCH ×2 (09:25→22:17)
[2022-10-09] MEDS: FOLIC ACID 1 MG TABLET (FP) GT SCH (09:25)
[2022-10-09] MEDS: PANTOPRAZOLE SODIUM 40 MG VIAL IVPUSH SCH ×2 (09:26→22:17)
[2022-10-09] MEDS: ASCORBIC ACID 500 MG/5 ML UNIT DOSE CUP GT SCH (09:29)
[2022-10-09] MEDS: MULTIVIT-MINERALS ORAL LIQUID GT SCH (09:29)
[2022-10-09] MEDS: POTASSIUM CHLORIDE 20 MEQ PREMIX IVPB 100 ML IVPB SCH ×3 (10:15→16:00)
[2022-10-09] MEDS: CHLORHEXIDINE GLUCONATE 0.12% 15ML CUP MM SCH ×2 (10:23→22:17)
[2022-10-09] MEDS: FLUCONAZOLE 100 MG/NS 50 ML IVPB SCH (10:23)
[2022-10-09] MEDS: LEVOTHYROXINE SODIUM 100 MCG 5 ML VIAL IVPUSH SCH (10:23)
[2022-10-09] MEDS: INSULIN (LEVEMIR) 100 UNITS/ML UNITS SQ SCH ×2 (10:28→22:16)
[2022-10-09] MEDS: COLLAGENASE CLOSTRIDIUM HIST. 30 GRAMS TUBE TP SCH ×2 (11:00→22:17)
[2022-10-09] MEDS: ATORVASTATIN CA 20 MG TABLET (FP) GT SCH (22:17)
[2022-10-10] MEDS: NOREPINEPHRINE BITARTRATE/D5W 8 MG/250 ML BAG IVPB SCH (05:15)
[2022-10-10] MEDS: VALPROATE SODIUM 250 MG/5 ML UNIT DOSE CUP GT SCH ×3 (05:44→22:43)
[2022-10-10] MEDS: HYDROCORTISONE SOD SUCCINATE 100 MG/2 ML VIAL IVPUSH SCH ×3 (05:44→22:44)
[2022-10-10] MEDS: INSULIN SLIDING SCALE (NOVOLOG) 1 VIAL SQ SCH ×3 (05:59→16:07)
[2022-10-10 08:16] LABS: HEMATOCRIT 22.8 % (32.4-45.2); HEMOGLOBIN 7.5 GM/dL (10.7-15.3); MCH 31.2 pg (25.7-33.7); MEAN CELL VOLUME 94.5 fl (80-96); MEAN PLT VOLUME 8.9 fl (7.5-11.1); PLATELET COUNT 195 10^3/uL (134-434); RBC 2.42 M/mm3 (3.60-5.2); RDW 18.7 % (11.6-15.6)
[2022-10-10 08:31] LABS: CHLORIDE 123 mmol/L (98-107); SODIUM 148 mmol/L (136-145)
[2022-10-10 08:39] LABS: CALCIUM 7.7 mg/dL (8.5-10.1)
[2022-10-10 08:40] LABS: ALBUMIN 1.4 g/dl (3.4-5.0); BLOOD UREA NITROGEN 67.6 mg/dL (7-18); CO2 17 mmol/L (21-32); GLUCOSE,RANDOM 160 mg/dL (74-106)
[2022-10-10 08:43] LABS: SGOT/AST 13 U/L (15-37); SGPT/ALT 8 U/L (13-61)
[2022-10-10 08:44] LABS: TOT PROT 4.8 g/dl (6.4-8.2)
[2022-10-10 08:45] LABS: ALK PHOS 85 U/L (45-117); ANION GAP 9 MMOL/L (8-16); BILIRUBIN,TOTAL 0.3 mg/dL (0.2-1)
[2022-10-10] MEDS ORDERED: POTASSIUM CHLORIDE ORAL LIQUID 20 MEQ/15 ML PO ONE (09:15)
[2022-10-10] MEDS: SEVELAMER CARBONATE 0.8 GM POWDER PACKET PO SCH (09:36)
[2022-10-10] MEDS: AMINO ACIDS/PROTEIN HYDROLYS 30 ML LIQUID.PKT GT SCH ×2 (09:37→16:39)
[2022-10-10] MEDS: CHLORHEXIDINE GLUCONATE 0.12% 15ML CUP MM SCH ×2 (09:37→22:44)
[2022-10-10] MEDS: SODIUM BICARBONATE 650 MG TABLET PO SCH (09:38)
[2022-10-10] MEDS: LACTOBACILLUS ACIDOPHILUS 1 TABLET GT SCH (09:38)
[2022-10-10] MEDS: FOLIC ACID 1 MG TABLET (FP) GT SCH (09:38)
[2022-10-10] MEDS: SERTRALINE HCL 50 MG TABLET (FP) GT SCH (09:38)
[2022-10-10] MEDS: FLUDROCORTISONE ACETATE 0.1 MG TABLET (FP) GT SCH (09:39)
[2022-10-10] MEDS: MIDODRINE HCL 5 MG TABLET PO SCH ×3 (09:39→17:27)
[2022-10-10] MEDS: PANTOPRAZOLE SODIUM 40 MG VIAL IVPUSH SCH ×2 (09:40→22:44)
[2022-10-10] MEDS: ASCORBIC ACID 500 MG/5 ML UNIT DOSE CUP GT SCH (09:48)
[2022-10-10] MEDS: MULTIVIT-MINERALS ORAL LIQUID GT SCH (09:48)
[2022-10-10] MEDS: LEVOTHYROXINE SODIUM 100 MCG 5 ML VIAL IVPUSH SCH (09:49)
[2022-10-10] MEDS: COLLAGENASE CLOSTRIDIUM HIST. 30 GRAMS TUBE TP SCH ×2 (09:49→22:44)
[2022-10-10] MEDS: INSULIN (LEVEMIR) 100 UNITS/ML UNITS SQ SCH ×2 (09:52→22:43)
[2022-10-10] MEDS: POTASSIUM CHLORIDE 20 MEQ PREMIX IVPB 100 ML IVPB SCH ×2 (10:09→11:39)
[2022-10-10 20:46] LABS: CALCIUM 7.9 mg/dL (8.5-10.1)
[2022-10-10 20:47] LABS: BLOOD UREA NITROGEN 70.2 mg/dL (7-18)
[2022-10-10] MEDS: ATORVASTATIN CA 20 MG TABLET (FP) GT SCH (22:44)
[2022-10-11] MEDS: MIDODRINE HCL 5 MG TABLET NGT SCH ×3 (01:07→15:49)
[2022-10-11] MEDS: NOREPINEPHRINE BITARTRATE/D5W 8 MG/250 ML BAG IVPB SCH (05:15)
[2022-10-11] MEDS: VALPROATE SODIUM 250 MG/5 ML UNIT DOSE CUP GT SCH ×3 (06:17→21:45)
[2022-10-11] MEDS: INSULIN SLIDING SCALE (NOVOLOG) 1 VIAL SQ SCH ×3 (06:17→15:56)
[2022-10-11 07:17] LABS: HEMATOCRIT 19.7 % (32.4-45.2); MCH 31.5 pg (25.7-33.7); MEAN CELL VOLUME 95.3 fl (80-96); MEAN PLT VOLUME 8.6 fl (7.5-11.1); PLATELET COUNT 214 10^3/uL (134-434); RBC 2.07 M/mm3 (3.60-5.2); RDW 18.6 % (11.6-15.6); WHITE BLOOD COUNT 13.6 K/mm3 (4.0-10.0)
[2022-10-11 07:22] LABS: HEMOGLOBIN 6.5 GM/dL (10.7-15.3)
[2022-10-11 07:35] LABS: CHLORIDE 127 mmol/L (98-107); SODIUM 152 mmol/L (136-145)
[2022-10-11 07:41] LABS: CALCIUM 7.9 mg/dL (8.5-10.1)
[2022-10-11 07:42] LABS: ALBUMIN 1.4 g/dl (3.4-5.0); BLOOD UREA NITROGEN 72.3 mg/dL (7-18); CO2 15 mmol/L (21-32); GLUCOSE,RANDOM 108 mg/dL (74-106)
[2022-10-11 07:45] LABS: CREATININE 0.9 mg/dL (0.55-1.3); SGOT/AST 14 U/L (15-37); SGPT/ALT 9 U/L (13-61)
[2022-10-11 07:46] LABS: TOT PROT 4.5 g/dl (6.4-8.2)
[2022-10-11 07:47] LABS: BILIRUBIN,TOTAL 0.4 mg/dL (0.2-1)
[2022-10-11 07:48] LABS: ALK PHOS 72 U/L (45-117)
[2022-10-11 08:08] LABS: ANION GAP 10 MMOL/L (8-16)
[2022-10-11] MEDS ORDERED: LACTATED RINGERS SOLUTION 1,000 ML/1,000 ML INFUS.BAG IV SCH (08:15)
[2022-10-11] MEDS ORDERED: POTASSIUM CHLORIDE 20 MEQ PREMIX IVPB 100 ML IVPB ONE ×3 (08:23→12:30)
[2022-10-11 08:47] LABS: MAGNESIUM 2.2 mg/dL (1.8-2.4)
[2022-10-11] MEDS: ASCORBIC ACID 500 MG/5 ML UNIT DOSE CUP GT SCH (09:05)
[2022-10-11] MEDS: HYDROCORTISONE SOD SUCCINATE 100 MG/2 ML VIAL IVPUSH SCH ×2 (09:05→21:46)
[2022-10-11] MEDS: MULTIVIT-MINERALS ORAL LIQUID GT SCH (09:05)
[2022-10-11] MEDS: COLLAGENASE CLOSTRIDIUM HIST. 30 GRAMS TUBE TP SCH ×2 (09:07→22:30)
[2022-10-11] MEDS: PANTOPRAZOLE SODIUM 40 MG VIAL IVPUSH SCH ×2 (09:07→21:45)
[2022-10-11] MEDS: LACTOBACILLUS ACIDOPHILUS 1 TABLET GT SCH (09:08)
[2022-10-11] MEDS: SERTRALINE HCL 50 MG TABLET (FP) GT SCH (09:08)
[2022-10-11] MEDS: FOLIC ACID 1 MG TABLET (FP) GT SCH (09:08)
[2022-10-11] MEDS: CHLORHEXIDINE GLUCONATE 0.12% 15ML CUP MM SCH ×2 (09:09→21:45)
[2022-10-11] MEDS: INSULIN (LEVEMIR) 100 UNITS/ML UNITS SQ SCH ×2 (09:09→22:15)
[2022-10-11] MEDS: AMINO ACIDS/PROTEIN HYDROLYS 30 ML LIQUID.PKT GT SCH ×2 (09:09→18:11)
[2022-10-11] MEDS: LEVOTHYROXINE SODIUM 100 MCG 5 ML VIAL IVPUSH SCH (09:09)
[2022-10-11] MEDS ORDERED: DEXTROSE 5%-WATER - 1,000 ML IV SCH ×2 (09:15→20:20)
[2022-10-11 16:14] LABS: HEMATOCRIT 24.4 % (32.4-45.2); HEMOGLOBIN 7.9 GM/dL (10.7-15.3); MCH 29.8 pg (25.7-33.7); MCHC 32.4 g/dl (32.0-36.0); MEAN CELL VOLUME 92.1 fl (80-96); MEAN PLT VOLUME 8.5 fl (7.5-11.1); PLATELET COUNT 200 10^3/uL (134-434); RBC 2.65 M/mm3 (3.60-5.2); RDW 17.7 % (11.6-15.6); WHITE BLOOD COUNT 13.7 K/mm3 (4.0-10.0)
[2022-10-11 17:03] LABS: BLOOD UREA NITROGEN 73.8 mg/dL (7-18)
[2022-10-11 17:06] LABS: CREATININE 0.9 mg/dL (0.55-1.3); PHOSPHOROUS 5.4 mg/dL (2.5-4.9)
[2022-10-11] MEDS: POTASSIUM CHLORIDE 20 MEQ PREMIX IVPB 100 ML IVPB SCH ×2 (18:11→20:44)
[2022-10-11] MEDS ORDERED: DEXTROSE 50%-WATER - 25 GM/50 ML VIAL IVPUSH PRN (20:20)
[2022-10-11] MEDS ORDERED: SENNOSIDES 8.8 MG/5 ML SYRUP GT PRN (20:20)
[2022-10-11] MEDS: ATORVASTATIN CA 20 MG TABLET (FP) GT SCH (21:46)
[2022-10-12] MEDS: MIDODRINE HCL 5 MG TABLET NGT SCH ×3 (00:55→17:08)
[2022-10-12] MEDS: VALPROATE SODIUM 250 MG/5 ML UNIT DOSE CUP GT SCH ×3 (06:16→21:14)
[2022-10-12] MEDS: INSULIN SLIDING SCALE (NOVOLOG) 1 VIAL SQ SCH ×3 (06:16→17:36)
[2022-10-12] MEDS ORDERED: FUROSEMIDE 40 MG/4 ML INJECTABLE VIAL IVPUSH ONE (07:22)
[2022-10-12] MEDS ORDERED: FUROSEMIDE 40 MG/4 ML INJECTABLE VIAL IVPUSH SCH (10:00)
[2022-10-12] MEDS: FOLIC ACID 1 MG TABLET (FP) GT SCH (10:04)
[2022-10-12] MEDS: AMINO ACIDS/PROTEIN HYDROLYS 30 ML LIQUID.PKT GT SCH ×2 (10:04→17:08)
[2022-10-12] MEDS: LACTOBACILLUS ACIDOPHILUS 1 TABLET GT SCH (10:04)
[2022-10-12] MEDS: HYDROCORTISONE SOD SUCCINATE 100 MG/2 ML VIAL IVPUSH SCH ×2 (10:04→21:16)
[2022-10-12] MEDS: PANTOPRAZOLE SODIUM 40 MG VIAL IVPUSH SCH ×2 (10:04→21:15)
[2022-10-12] MEDS: INSULIN (LEVEMIR) 100 UNITS/ML UNITS SQ SCH ×2 (10:05→21:38)
[2022-10-12] MEDS: CHLORHEXIDINE GLUCONATE 0.12% 15ML CUP MM SCH ×2 (10:08→21:15)
[2022-10-12] MEDS: MULTIVIT-MINERALS ORAL LIQUID GT SCH (12:21)
[2022-10-12] MEDS: COLLAGENASE CLOSTRIDIUM HIST. 30 GRAMS TUBE TP SCH ×2 (12:21→21:16)
[2022-10-12] MEDS: LEVOTHYROXINE SODIUM 100 MCG 5 ML VIAL IVPUSH SCH (12:22)
[2022-10-12] MEDS: ASCORBIC ACID 500 MG/5 ML UNIT DOSE CUP GT SCH (12:23)
[2022-10-12] MEDS: SERTRALINE HCL 50 MG TABLET (FP) GT SCH (13:38)
[2022-10-12] MEDS: ATORVASTATIN CA 20 MG TABLET (FP) GT SCH (21:15)
[2022-10-13] MEDS: MIDODRINE HCL 5 MG TABLET NGT SCH ×4 (00:51→17:22)
[2022-10-13] MEDS ORDERED: DEXTROSE 5%-WATER - 1,000 ML IV SCH (05:00)
[2022-10-13] MEDS: VALPROATE SODIUM 250 MG/5 ML UNIT DOSE CUP GT SCH ×3 (05:13→21:24)
[2022-10-13] MEDS: INSULIN SLIDING SCALE (NOVOLOG) 1 VIAL SQ SCH ×3 (06:51→17:38)
[2022-10-13] MEDS: AMINO ACIDS/PROTEIN HYDROLYS 30 ML LIQUID.PKT GT SCH ×2 (07:57→17:22)
[2022-10-13 08:22] LABS: CHLORIDE 123 mmol/L (98-107); SODIUM 148 mmol/L (136-145)
[2022-10-13 08:27] LABS: CALCIUM 7.8 mg/dL (8.5-10.1)
[2022-10-13 08:28] LABS: ALBUMIN 1.4 g/dl (3.4-5.0); BLOOD UREA NITROGEN 77.7 mg/dL (7-18); CO2 17 mmol/L (21-32); GLUCOSE,RANDOM 91 mg/dL (74-106); MAGNESIUM 1.8 mg/dL (1.8-2.4)
[2022-10-13 08:30] LABS: CREATININE 0.9 mg/dL (0.55-1.3); SGPT/ALT 10 U/L (13-61)
[2022-10-13 08:32] LABS: SGOT/AST 18 U/L (15-37)
[2022-10-13 08:33] LABS: ALK PHOS 77 U/L (45-117); BILIRUBIN,TOTAL 0.3 mg/dL (0.2-1); TOT PROT 4.8 g/dl (6.4-8.2)
[2022-10-13 08:41] LABS: ANION GAP 8 MMOL/L (8-16)
[2022-10-13 08:57] LABS: BASO % 0.1 % (0-2.0); EOS % 0.6 % (0-4.5); HEMOGLOBIN 7.9 GM/dL (10.7-15.3); MCH 30.6 pg (25.7-33.7); MEAN CELL VOLUME 92.7 fl (80-96); MONO % 8.4 % (3.8-10.2); NEUT % 81.9 % (42.8-82.8); PLATELET COUNT 204 10^3/uL (134-434); RBC 2.59 M/mm3 (3.60-5.2); RDW 19.2 % (11.6-15.6)
[2022-10-13] MEDS ORDERED: POTASSIUM CHLORIDE ORAL LIQUID 20 MEQ/15 ML GT ONE (09:30)
[2022-10-13] MEDS: HYDROCORTISONE SOD SUCCINATE 100 MG/2 ML VIAL IVPUSH SCH (09:59)
[2022-10-13] MEDS: PANTOPRAZOLE SODIUM 40 MG VIAL IVPUSH SCH ×2 (09:59→21:24)
[2022-10-13] MEDS: SERTRALINE HCL 50 MG TABLET (FP) GT SCH (10:00)
[2022-10-13] MEDS: CHLORHEXIDINE GLUCONATE 0.12% 15ML CUP MM SCH ×2 (10:00→21:24)
[2022-10-13] MEDS: LACTOBACILLUS ACIDOPHILUS 1 TABLET GT SCH (10:00)
[2022-10-13] MEDS: FOLIC ACID 1 MG TABLET (FP) GT SCH (10:01)
[2022-10-13] MEDS: POTASSIUM CHLORIDE 20 MEQ PREMIX IVPB 100 ML IVPB SCH ×3 (10:01→13:15)
[2022-10-13] MEDS: LEVOTHYROXINE SODIUM 100 MCG 5 ML VIAL IVPUSH SCH (10:02)
[2022-10-13] MEDS: ASCORBIC ACID 500 MG/5 ML UNIT DOSE CUP GT SCH (10:02)
[2022-10-13] MEDS: MULTIVIT-MINERALS ORAL LIQUID GT SCH (10:02)
[2022-10-13] MEDS: COLLAGENASE CLOSTRIDIUM HIST. 30 GRAMS TUBE TP SCH ×2 (10:02→21:33)
[2022-10-13] MEDS: INSULIN (LEVEMIR) 100 UNITS/ML UNITS SQ SCH ×2 (10:04→21:27)
[2022-10-13] MEDS: POTASSIUM CHLORIDE 20 MEQ in DEXTROSE 5%-WATER - 1,000 ML IV SCH (15:40)
[2022-10-13 16:32] LABS: CREATININE 0.8 mg/dL (0.55-1.3)
[2022-10-13] MEDS ORDERED: POTASSIUM CHLORIDE ORAL LIQUID 20 MEQ/15 ML PO ONE (18:00)
[2022-10-13] MEDS: ATORVASTATIN CA 20 MG TABLET (FP) GT SCH (21:24)
[2022-10-14] MEDS: VALPROATE SODIUM 250 MG/5 ML UNIT DOSE CUP GT SCH ×3 (06:19→21:22)
[2022-10-14] MEDS: INSULIN SLIDING SCALE (NOVOLOG) 1 VIAL SQ SCH ×3 (06:22→18:01)
[2022-10-14 08:12] LABS: HEMATOCRIT 22.2 % (32.4-45.2); HEMOGLOBIN 7.5 GM/dL (10.7-15.3); MCH 31.5 pg (25.7-33.7); MCHC 33.7 g/dl (32.0-36.0); MEAN CELL VOLUME 93.5 fl (80-96); MEAN PLT VOLUME 9.1 fl (7.5-11.1); PLATELET COUNT 180 10^3/uL (134-434); RBC 2.37 M/mm3 (3.60-5.2); RDW 18.9 % (11.6-15.6); WHITE BLOOD COUNT 9.8 K/mm3 (4.0-10.0)
[2022-10-14 08:27] LABS: ALBUMIN 1.2 g/dl (3.4-5.0)
[2022-10-14 08:28] LABS: BLOOD UREA NITROGEN 71.4 mg/dL (7-18)
[2022-10-14 08:32] LABS: BILIRUBIN,TOTAL 0.2 mg/dL (0.2-1); CREATININE 0.8 mg/dL (0.55-1.3); TOT PROT 4.6 g/dl (6.4-8.2)
[2022-10-14] MEDS: PANTOPRAZOLE SODIUM 40 MG VIAL IVPUSH SCH ×2 (10:02→21:23)
[2022-10-14] MEDS: AMINO ACIDS/PROTEIN HYDROLYS 30 ML LIQUID.PKT GT SCH ×2 (10:02→17:26)
[2022-10-14] MEDS: CHLORHEXIDINE GLUCONATE 0.12% 15ML CUP MM SCH ×2 (10:02→21:23)
[2022-10-14] MEDS: FOLIC ACID 1 MG TABLET (FP) GT SCH (10:02)
[2022-10-14] MEDS: MIDODRINE HCL 5 MG TABLET NGT SCH ×3 (10:03→17:26)
[2022-10-14] MEDS: LACTOBACILLUS ACIDOPHILUS 1 TABLET GT SCH (10:03)
[2022-10-14] MEDS: LEVOTHYROXINE SODIUM 100 MCG 5 ML VIAL IVPUSH SCH (10:03)
[2022-10-14] MEDS: SERTRALINE HCL 50 MG TABLET (FP) GT SCH (10:03)
[2022-10-14] MEDS: MULTIVIT-MINERALS ORAL LIQUID GT SCH (10:04)
[2022-10-14] MEDS: INSULIN (LEVEMIR) 100 UNITS/ML UNITS SQ SCH ×2 (10:04→21:36)
[2022-10-14] MEDS: ASCORBIC ACID 500 MG/5 ML UNIT DOSE CUP GT SCH (10:05)
[2022-10-14] MEDS: POTASSIUM CHLORIDE 20 MEQ in DEXTROSE 5%-WATER - 1,000 ML IV SCH (10:05)
[2022-10-14] MEDS: COLLAGENASE CLOSTRIDIUM HIST. 30 GRAMS TUBE TP SCH ×2 (10:05→21:23)
[2022-10-14 20:54] VITALS: BMI 27.3
[2022-10-14] MEDS: ATORVASTATIN CA 20 MG TABLET (FP) GT SCH (21:22)
[2022-10-15] MEDS: VALPROATE SODIUM 250 MG/5 ML UNIT DOSE CUP GT SCH ×3 (06:26→21:58)
[2022-10-15] MEDS: POTASSIUM CHLORIDE 20 MEQ in DEXTROSE 5%-WATER - 1,000 ML IV SCH (06:27)
[2022-10-15] MEDS: INSULIN SLIDING SCALE (NOVOLOG) 1 VIAL SQ SCH ×3 (06:51→17:22)
[2022-10-15] MEDS: INSULIN (LEVEMIR) 100 UNITS/ML UNITS SQ SCH ×2 (09:03→22:01)
[2022-10-15] MEDS: AMINO ACIDS/PROTEIN HYDROLYS 30 ML LIQUID.PKT GT SCH ×2 (09:10→17:51)
[2022-10-15] MEDS: PANTOPRAZOLE SODIUM 40 MG VIAL IVPUSH SCH ×2 (09:10→21:58)
[2022-10-15] MEDS: MIDODRINE HCL 5 MG TABLET NGT SCH ×3 (09:10→17:51)
[2022-10-15] MEDS: SERTRALINE HCL 50 MG TABLET (FP) GT SCH (09:11)
[2022-10-15] MEDS: FOLIC ACID 1 MG TABLET (FP) GT SCH (09:11)
[2022-10-15] MEDS: CHLORHEXIDINE GLUCONATE 0.12% 15ML CUP MM SCH ×2 (09:11→21:59)
[2022-10-15] MEDS: MULTIVIT-MINERALS ORAL LIQUID GT SCH (09:11)
[2022-10-15] MEDS: ASCORBIC ACID 500 MG/5 ML UNIT DOSE CUP GT SCH (09:11)
[2022-10-15] MEDS: LEVOTHYROXINE SODIUM 100 MCG 5 ML VIAL IVPUSH SCH (09:11)
[2022-10-15] MEDS: LACTOBACILLUS ACIDOPHILUS 1 TABLET GT SCH (09:11)
[2022-10-15] MEDS: COLLAGENASE CLOSTRIDIUM HIST. 30 GRAMS TUBE TP SCH ×2 (09:31→21:59)
[2022-10-15] MEDS: ATORVASTATIN CA 20 MG TABLET (FP) GT SCH (21:58)
[2022-10-16] MEDS: POTASSIUM CHLORIDE 20 MEQ in DEXTROSE 5%-WATER - 1,000 ML IV SCH ×2 (06:03→16:06)
[2022-10-16] MEDS: VALPROATE SODIUM 250 MG/5 ML UNIT DOSE CUP GT SCH ×3 (06:03→23:12)
[2022-10-16] MEDS: INSULIN SLIDING SCALE (NOVOLOG) 1 VIAL SQ SCH ×3 (06:55→18:20)
[2022-10-16] MEDS: LEVOTHYROXINE SODIUM 100 MCG 5 ML VIAL IVPUSH SCH (10:29)
[2022-10-16] MEDS: MULTIVIT-MINERALS ORAL LIQUID GT SCH (10:32)
[2022-10-16] MEDS: ASCORBIC ACID 500 MG/5 ML UNIT DOSE CUP GT SCH (10:33)
[2022-10-16] MEDS: AMINO ACIDS/PROTEIN HYDROLYS 30 ML LIQUID.PKT GT SCH ×2 (11:17→18:19)
[2022-10-16] MEDS: LACTOBACILLUS ACIDOPHILUS 1 TABLET GT SCH (11:17)
[2022-10-16] MEDS: FOLIC ACID 1 MG TABLET (FP) GT SCH (11:18)
[2022-10-16] MEDS: MIDODRINE HCL 5 MG TABLET NGT SCH ×4 (11:18→18:19)
[2022-10-16] MEDS: PANTOPRAZOLE SODIUM 40 MG VIAL IVPUSH SCH ×2 (11:18→23:12)
[2022-10-16] MEDS: SERTRALINE HCL 50 MG TABLET (FP) GT SCH (11:19)
[2022-10-16] MEDS: CHLORHEXIDINE GLUCONATE 0.12% 15ML CUP MM SCH ×2 (12:03→23:12)
[2022-10-16] MEDS ORDERED: INSULIN (LEVEMIR) 100 UNITS/ML UNITS SQ ONE (14:19)
[2022-10-16] MEDS: COLLAGENASE CLOSTRIDIUM HIST. 30 GRAMS TUBE TP SCH (14:30)
[2022-10-16] MEDS: INSULIN (LEVEMIR) 100 UNITS/ML UNITS SQ SCH ×2 (14:37→23:12)
[2022-10-16] MEDS: ATORVASTATIN CA 20 MG TABLET (FP) GT SCH (23:12)
[2022-10-17] MEDS: COLLAGENASE CLOSTRIDIUM HIST. 30 GRAMS TUBE TP SCH ×2 (02:15→10:38)
[2022-10-17] MEDS: POTASSIUM CHLORIDE 20 MEQ in DEXTROSE 5%-WATER - 1,000 ML IV SCH ×3 (05:14→18:32)
[2022-10-17] MEDS: VALPROATE SODIUM 250 MG/5 ML UNIT DOSE CUP GT SCH ×3 (05:37→22:00)
[2022-10-17] MEDS: INSULIN SLIDING SCALE (NOVOLOG) 1 VIAL SQ SCH ×3 (06:35→17:04)
[2022-10-17] MEDS: AMINO ACIDS/PROTEIN HYDROLYS 30 ML LIQUID.PKT GT SCH ×2 (08:55→16:52)
[2022-10-17] MEDS ORDERED: LEVOTHYROXINE SODIUM 100 MCG/ML 1 ML VIAL IVPUSH SCH (10:00)
[2022-10-17] MEDS: INSULIN (LEVEMIR) 100 UNITS/ML UNITS SQ SCH (10:33)
[2022-10-17] MEDS: PANTOPRAZOLE SODIUM 40 MG VIAL IVPUSH SCH (10:34)
[2022-10-17] MEDS: CHLORHEXIDINE GLUCONATE 0.12% 15ML CUP MM SCH (10:34)
[2022-10-17] MEDS: ASCORBIC ACID 500 MG/5 ML UNIT DOSE CUP GT SCH (10:34)
[2022-10-17] MEDS: MIDODRINE HCL 5 MG TABLET NGT SCH ×3 (10:37→17:49)
[2022-10-17] MEDS: MULTIVIT-MINERALS ORAL LIQUID GT SCH (10:37)
[2022-10-17] MEDS: SERTRALINE HCL 50 MG TABLET (FP) GT SCH (10:37)
[2022-10-17] MEDS: FOLIC ACID 1 MG TABLET (FP) GT SCH (10:37)
[2022-10-17] MEDS: LACTOBACILLUS ACIDOPHILUS 1 TABLET GT SCH (10:37)
[2022-10-17 12:38] LABS: HEMATOCRIT 20.2 % (32.4-45.2); MCH 31.6 pg (25.7-33.7); MCHC 33.4 g/dl (32.0-36.0); MEAN CELL VOLUME 94.4 fl (80-96); PLATELET COUNT 88 10^3/uL (134-434); RBC 2.15 M/mm3 (3.60-5.2); RDW 18.5 % (11.6-15.6); WHITE BLOOD COUNT 7.5 K/mm3 (4.0-10.0)
[2022-10-17 12:47] LABS: HEMOGLOBIN 6.8 GM/dL (10.7-15.3)
[2022-10-17 12:58] LABS: CHLORIDE 120 mmol/L (98-107); SODIUM 142 mmol/L (136-145)
[2022-10-17 13:03] LABS: CALCIUM 8.1 mg/dL (8.5-10.1)
[2022-10-17 13:04] LABS: BLOOD UREA NITROGEN 67.1 mg/dL (7-18); CO2 13 mmol/L (21-32); GLUCOSE,RANDOM 125 mg/dL (74-106)
[2022-10-17 13:07] LABS: CREATININE 0.9 mg/dL (0.55-1.3); SGOT/AST 13 U/L (15-37); SGPT/ALT 10 U/L (13-61)
[2022-10-17 13:08] LABS: BILIRUBIN,TOTAL 0.4 mg/dL (0.2-1); TOT PROT 4.5 g/dl (6.4-8.2)
[2022-10-17 13:10] LABS: ALK PHOS 93 U/L (45-117)
[2022-10-17 13:11] LABS: ANION GAP 9 MMOL/L (8-16)
[2022-10-17 13:25] LABS: ANISOCYTOSIS 1+; MACROCYTOSIS 1+
[2022-10-17] MEDS: KCL 10 MEQ IVPB 10 MEQ/100 ML INFUS.BAG IVPB SCH ×3 (14:30→16:52)
[2022-10-17 20:26] VITALS: RESP 12
[2022-10-17] MEDS ORDERED: SODIUM CHLORIDE 500 ML IV STA (21:21)
[2022-10-17] MEDS: ATORVASTATIN CA 20 MG TABLET (FP) GT SCH (22:00)
[2022-10-17 23:09] VITALS: BP 60/44
[2022-10-17 23:43] VITALS: PULSE 110; TEMP 93.5
[2022-10-18] MEDS: INSULIN (LEVEMIR) 100 UNITS/ML UNITS SQ SCH (00:36)
[2022-10-18] MEDS: COLLAGENASE CLOSTRIDIUM HIST. 30 GRAMS TUBE TP SCH (00:37)
[2022-10-18] MEDS: CHLORHEXIDINE GLUCONATE 0.12% 15ML CUP MM SCH (00:37)
[2022-10-18] MEDS: PANTOPRAZOLE SODIUM 40 MG VIAL IVPUSH SCH (00:37)
[2022-10-18] MEDS ORDERED: MORPHINE SULFATE/0.9% NACL/PF 100 MG/100 ML BAG IVPB SCH (00:45)
== END 2022-10-18 03:55 | disposition expired | DRG 4 ==
LOC: JER 09:15 → JICU 09:29 → J4W 09-22 13:09 → J6S 09-25 02:04 → JICU 09-27 04:00 → J5S 10-16 06:03
PROVIDERS: ADMIT Internal Medicine; ATTEND Internal Medicine
PROC: 5A1955Z Respiratory Ventilation, Greater than 96 Consecutive Hours (ICD-10-PCS; 2022-08-25)
PROC: 0BH17EZ Insertion of Endotracheal Airway into Trachea, Via Natural or Artificial Opening (ICD-10-PCS; 2022-08-25)
PROC: 05HM33Z Insertion of Infusion Device into Right Internal Jugular Vein, Percutaneous Approach (ICD-10-PCS; 2022-08-27)
PROC: B543ZZA Ultrasonography of Right Jugular Veins, Guidance (ICD-10-PCS; 2022-08-27)
PROC: 30233N1 Transfusion of Nonautologous Red Blood Cells into Peripheral Vein, Percutaneous Approach (ICD-10-PCS; 2022-09-01)
PROC: 05HM33Z Insertion of Infusion Device into Right Internal Jugular Vein, Percutaneous Approach (ICD-10-PCS; 2022-09-09)
PROC: B543ZZA Ultrasonography of Right Jugular Veins, Guidance (ICD-10-PCS; 2022-09-09)
PROC: 05HM33Z Insertion of Infusion Device into Right Internal Jugular Vein, Percutaneous Approach (ICD-10-PCS; 2022-09-27)
PROC: B543ZZA Ultrasonography of Right Jugular Veins, Guidance (ICD-10-PCS; 2022-09-27)
PROC: 05HN33Z Insertion of Infusion Device into Left Internal Jugular Vein, Percutaneous Approach (ICD-10-PCS; 2022-10-06)
PROC: B544ZZA Ultrasonography of Left Jugular Veins, Guidance (ICD-10-PCS; 2022-10-06)
PROC: 0B114F4 Bypass Trachea to Cutaneous with Tracheostomy Device, Percutaneous Endoscopic Approach (ICD-10-PCS; principal; 2022-10-08)
PROC: 0BJ08ZZ Inspection of Tracheobronchial Tree, Via Natural or Artificial Opening Endoscopic (ICD-10-PCS; 2022-10-08)
DX: A41.02 Sepsis due to Methicillin resistant Staphylococcus aureus (principal); G92.8 Other toxic encephalopathy; I21.4 Non-ST elevation (NSTEMI) myocardial infarction; R65.21 Severe sepsis with septic shock; J15.212 Pneumonia due to Methicillin resistant Staphylococcus aureus; J96.01 Acute respiratory failure with hypoxia; J69.0 Pneumonitis due to inhalation of food and vomit; C34.90 Malignant neoplasm of unspecified part of unspecified bronchus or lung; N39.0 Urinary tract infection, site not specified; N17.9 Acute kidney failure, unspecified; E87.20 Acidosis, unspecified; E87.0 Hyperosmolality and hypernatremia; J98.11 Atelectasis; I24.8 Other forms of acute ischemic heart disease; N25.1 Nephrogenic diabetes insipidus; I48.92 Unspecified atrial flutter; I47.20 Ventricular tachycardia, unspecified; E87.1 Hypo-osmolality and hyponatremia; J90 Pleural effusion, not elsewhere classified; K92.2 Gastrointestinal hemorrhage, unspecified; Z99.11 Dependence on respirator [ventilator] status; G20 Parkinson's disease; I10 Essential (primary) hypertension; D64.9 Anemia, unspecified; E78.5 Hyperlipidemia, unspecified; Z74.01 Bed confinement status; D72.829 Elevated white blood cell count, unspecified; E87.5 Hyperkalemia; F20.9 Schizophrenia, unspecified; E03.9 Hypothyroidism, unspecified; D69.6 Thrombocytopenia, unspecified; E87.6 Hypokalemia; Z88.1 Allergy status to other antibiotic agents; B96.20 Unspecified Escherichia coli [E. coli] as the cause of diseases classified elsewhere; E86.0 Dehydration
CPT/HCPCS: 0241U-QW; 36415; 36430; 36600; 70450-TC; 71045-TC-FY; 74230-TC-FY; 80048; 80053; 80061; 80076; 80164; 81003; 82272; 82436; 82438; 82533; 82550; 82553; 82570; 82607; 82728; 82746; 82803; 82962; 83010; 83036; 83540; 83550; 83605; 83615; 83735; 84100; 84133; 84300; 84302; 84439; 84443; 84484; 84999; 85025; 85027; 85045; 85384; 85610; 85730; 86850; 86900; 86901; 86922; 87040; 87045; 87046; 87070; 87077; 87086; 87186; 87205; 87324; 87449; 92611-GN; 93005; 93010; 93306-TC; 93970-TC; 94002; 97162-GP; 99291; E0186; G0480; J1644; J3490; P9047; P9058